=== PATIENT | female | born 1940 | race Caucasian/White ===

== ENCOUNTER → 2017-08-17 14:37 | Outpatient (CLI) | payer MEDICARE, OTHER, SELFPAY ==
[2017-08-17 15:46] LABS: Absolute Lymphocyte Count 2.69 X10^3/ul (0.83-4.51); Absolute Neutrophil Count 7.9 X10^3/uL (2.0-7.7); Basophil# 0.05 X10^3/uL; Basophil% 0.4 % (0-1); Eosinophils% 4.3 % (0-5); Hematocrit 42.1 % (37-47); Hemoglobin 13.4 g/dl (12.0-15.0); Lymphocyte # 2.69 X10^3/ul (4.0); Lymphocyte % 22.9 % (19-41); Mean Corp Hgb Conc 31.8 g/gl (32-36); Mean Corpuscular Hgb 27.6 pg (27.0-32.0); Mean Corpuscular Volume 86.8 fL (81-99); Mean Platelet Vol. 8.9 fl (6.2-12.0); Monocyte# 0.61 X10^3/uL; Monocyte% 5.2 % (0-10); Neutrophil # 7.88 X10^3/uL (2.7-7.7); Neutrophil % 66.9 % (47-70); Platelet Count 445 K/mm3 (150-450); RBC Distribution Width CV 15.1 % (11.6-14.6); RBC Distribution Width SD 47.7 fl (35.1-43.9); Red Blood Count 4.85 M/mm3 (4.2-5.4); White Blood Count 11.8 K/mm3 (4.4-11.0)
[2017-08-17 15:48] LABS: POSITIVE COUNT NO; POSITIVE DIFFERENTIAL NO; POSITIVE MORPHOLOGY NO
[2017-08-17 16:02] LABS: ALB/GLOB Ratio 0.9 RATIO (0.9-2.4); AST(SGOT) 27 U/L (15-37); Alanine Aminotransfer ALT/SGPT 58 U/L (13-56); Albumin, Serum 3.6 g/dL (3.2-5.0); Alkaline Phosphatase 113 U/L (45-117); Anion Gap 6 (5-15); BUN 15 mg/dL (7-18); BUN/Creat Ratio 23.6 RATIO (10-20); Calcium,Total 9.3 mg/dL (8.5-10.1); Chloride 98 mmol/L (98-107); Creatinine, Serum 0.64 mg/dL (0.55-1.02); EST Glomerular Filtration Rate 97 mL/min (>60); Est Glom Filt Rate - Afr Amer 117 mL/min (>60); Globulin 3.9 g/dL (2.2-4.2); Glucose 105 mg/dL (74-106); Potassium 4.1 mmol/L (3.5-5.1); Protein, Total 7.5 g/dL (6.4-8.2); Sodium Level 138 mmol/L (136-145)
== END ==
PROVIDERS: Family Provider Family Medicine; PCP Family Medicine; Visit Provider Internal Medicine Rheumatology
DX: M06.4 Inflammatory polyarthropathy (principal); M15.9 Polyosteoarthritis, unspecified; M17.0 Bilateral primary osteoarthritis of knee; L64.8 Other androgenic alopecia; F41.9 Anxiety disorder, unspecified; F32.89 Other specified depressive episodes
CPT/HCPCS: 36415; 80053; 85025

== ENCOUNTER → 2018-01-03 14:25 | Outpatient (CLI) | payer MEDICARE, OTHER, SELFPAY ==
[2018-01-03 15:41] LABS: Absolute Lymphocyte Count 2.08 X10^3/ul (0.83-4.51); Absolute Neutrophil Count 6.2 X10^3/uL (2.0-7.7); Basophil# 0.05 X10^3/uL; Basophil% 0.5 % (0-1); Eosinophil# 0.49 X10^3/uL; Eosinophils% 5.1 % (0-5); Hematocrit 42.4 % (37-47); Hemoglobin 14.3 g/dl (12.0-15.0); Lymphocyte # 2.08 X10^3/ul (4.0); Lymphocyte % 21.5 % (19-41); Mean Corp Hgb Conc 33.7 g/gl (32-36); Mean Corpuscular Hgb 30.6 pg (27.0-32.0); Mean Corpuscular Volume 90.6 fL (81-99); Mean Platelet Vol. 9.4 fl (6.2-12.0); Monocyte# 0.84 X10^3/uL; Monocyte% 8.7 % (0-10); Neutrophil # 6.18 X10^3/uL (2.7-7.7); Platelet Count 404 K/mm3 (150-450); RBC Distribution Width CV 14.4 % (11.6-14.6); Red Blood Count 4.68 M/mm3 (4.2-5.4); White Blood Count 9.7 K/mm3 (4.4-11.0)
[2018-01-03 15:47] LABS: POSITIVE COUNT NO; POSITIVE DIFFERENTIAL NO; POSITIVE MORPHOLOGY NO
[2018-01-03 15:57] LABS: AST(SGOT) 25 U/L (15-37); Alanine Aminotransfer ALT/SGPT 48 U/L (13-56); Albumin, Serum 3.7 g/dL (3.2-5.0); Alkaline Phosphatase 90 U/L (45-117); Anion Gap 9 (5-15); BUN 11 mg/dL (7-18); Calcium,Total 9.3 mg/dL (8.5-10.1); Chloride 102 mmol/L (98-107); Creatinine, Serum 0.73 mg/dL (0.55-1.02); EST Glomerular Filtration Rate 82 mL/min (>60); Est Glom Filt Rate - Afr Amer 99 mL/min (>60); Globulin 3.7 g/dL (2.2-4.2); Glucose 186 mg/dL (74-106); Protein, Total 7.4 g/dL (6.4-8.2); Sodium Level 139 mmol/L (136-145)
== END ==
PROVIDERS: Family Provider Family Medicine; PCP Family Medicine; Visit Provider Internal Medicine Rheumatology
DX: M06.4 Inflammatory polyarthropathy (principal); Z79.899 Other long term (current) drug therapy; M15.9 Polyosteoarthritis, unspecified; M18.0 Bilateral primary osteoarthritis of first carpometacarpal joints; M17.0 Bilateral primary osteoarthritis of knee; L64.8 Other androgenic alopecia; F41.9 Anxiety disorder, unspecified; F32.89 Other specified depressive episodes
CPT/HCPCS: 36415; 80053; 85025

== ENCOUNTER → 2018-03-24 07:21 | Outpatient (CLI) | payer MEDICARE, OTHER, SELFPAY ==
[2018-03-24 08:08] LABS: Absolute Lymphocyte Count 1.93 X10^3/ul (0.83-4.51); Absolute Neutrophil Count 7.8 X10^3/uL (2.0-7.7); Basophil# 0.05 X10^3/uL; Basophil% 0.5 % (0-1); Eosinophil# 0.51 X10^3/uL; Eosinophils% 4.6 % (0-5); Hematocrit 44.9 % (37-47); Hemoglobin 15.2 g/dl (12.0-15.0); Lymphocyte # 1.93 X10^3/ul (4.0); Lymphocyte % 17.5 % (19-41); Mean Corp Hgb Conc 33.9 g/gl (32-36); Mean Corpuscular Hgb 29.9 pg (27.0-32.0); Mean Corpuscular Volume 88.2 fL (81-99); Mean Platelet Vol. 9.3 fl (6.2-12.0); Monocyte# 0.73 X10^3/uL; Monocyte% 6.6 % (0-10); Neutrophil # 7.79 X10^3/uL (2.7-7.7); Neutrophil % 70.5 % (47-70); Platelet Count 493 K/mm3 (150-450); RBC Distribution Width CV 12.5 % (11.6-14.6); RBC Distribution Width SD 40.3 fl (35.1-43.9); Red Blood Count 5.09 M/mm3 (4.2-5.4)
[2018-03-24 08:10] LABS: POSITIVE COUNT NO; POSITIVE DIFFERENTIAL NO; POSITIVE MORPHOLOGY NO
[2018-03-24 08:34] LABS: ALB/GLOB Ratio 0.9 RATIO (0.9-2.4); AST(SGOT) 24 U/L (15-37); Alanine Aminotransfer ALT/SGPT 47 U/L (13-56); Albumin, Serum 3.6 g/dL (3.2-5.0); Alkaline Phosphatase 114 U/L (45-117); Anion Gap 9 (5-15); BUN 9 mg/dL (7-18); BUN/Creat Ratio 12.9 RATIO (10-20); Calcium,Total 9.4 mg/dL (8.5-10.1); Chloride 102 mmol/L (98-107); EST Glomerular Filtration Rate 87 mL/min (>60); Est Glom Filt Rate - Afr Amer 105 mL/min (>60); Glucose 201 mg/dL (74-106); Potassium 3.7 mmol/L (3.5-5.1); Protein, Total 7.6 g/dL (6.4-8.2); Sodium Level 140 mmol/L (136-145)
== END ==
PROVIDERS: Family Provider Family Medicine; PCP Family Medicine; Referring Provider Internal Medicine Rheumatology; Visit Provider Internal Medicine Rheumatology
DX: M06.4 Inflammatory polyarthropathy (principal); M15.9 Polyosteoarthritis, unspecified; M17.0 Bilateral primary osteoarthritis of knee; L64.8 Other androgenic alopecia; F41.9 Anxiety disorder, unspecified; F32.89 Other specified depressive episodes
CPT/HCPCS: 36415; 80053; 85025

== ENCOUNTER → 2018-03-27 10:27 | Outpatient (CLI) | payer MEDICARE, OTHER, SELFPAY ==
[2018-03-27 12:44] LABS: Thyroid Stim Hormone (TSH) 1.19 uIU/mL (0.358-3.74)
[2018-03-27 14:56] LABS: Vitamin B12 950 pg/mL (211-911); Vitamin D,25 Hydroxy 38.1 ng/mL (29.95-100.01)
== END ==
PROVIDERS: Visit Provider Family Medicine
DX: I10 Essential (primary) hypertension (principal); R53.83 Other fatigue; Z87.898 Personal history of other specified conditions; E53.8 Deficiency of other specified B group vitamins; E55.9 Vitamin D deficiency, unspecified
CPT/HCPCS: 36415; 82306; 82607; 84439; 84443

== ENCOUNTER → 2018-04-20 12:54 | Outpatient (CLI) | payer MEDICARE, OTHER, SELFPAY ==
--- NOTE | 2018-04-20 12:58 | CT_ITS ---
STUDY: CT BRAIN WITHOUT CONTRAST REASON FOR EXAM: Female, 78 years old. Memory loss RADIATION DOSAGE (If Supplied By Facility): CTDIvol = ( 44.99 ) mGy, DLP = ( 745.49 ) mGycm TECHNIQUE: Transaxial CT imaging of the brain was performed without administration of intravenous contrast material. Individualized dose optimization techniques were used for this CT. COMPARISON: None. FINDINGS: Normal soft tissue structures. Normal calvarium. There is mild to moderate cerebral atrophy with widening of the extra-axial spaces and ventricular dilatation. There is mild bilateral periventricular and subcortical white matter hypoattenuation which is symmetric in distribution. Normal basal ganglia and thalami. Normal brainstem. Normal cerebellum. There is no intracranial hemorrhage. There are no findings of an acute ischemic infarction. Normal visualized paranasal sinuses. CT/Brain/Head without Contrast IMPRESSION: 1. No evidence of an acute intracranial abnormality. 2. Mild to moderate bilateral periventricular and subcortical white matter chronic small vessel disease with age appropriate cerebral atrophy. Electronically Signed: Clint Chi MD at 3:51 EST Tel , Service support ,
== END ==
PROVIDERS: Family Provider Family Medicine; PCP Family Medicine; Referring Provider Family Medicine; Visit Provider Family Medicine
DX: F03.90 Unspecified dementia, unspecified severity, without behavioral disturbance, psychotic disturbance, mood disturbance, and anxiety (principal); R26.89 Other abnormalities of gait and mobility
CPT/HCPCS: 70450

== ENCOUNTER → 2018-05-23 15:18 | Outpatient (CLI) | payer MEDICARE, OTHER, SELFPAY ==
[2018-05-23 19:24] LABS: Absolute Lymphocyte Count 2.44 X10^3/ul (0.83-4.51); Absolute Neutrophil Count 7.2 X10^3/uL (2.0-7.7); Basophil# 0.06 X10^3/uL; Basophil% 0.6 % (0-1); Eosinophil# 0.44 X10^3/uL; Eosinophils% 4.1 % (0-5); Hematocrit 45.7 % (37-47); Lymphocyte # 2.44 X10^3/ul (4.0); Lymphocyte % 22.8 % (19-41); Mean Corp Hgb Conc 32.8 g/gl (32-36); Mean Corpuscular Hgb 28.5 pg (27.0-32.0); Mean Corpuscular Volume 86.7 fL (81-99); Mean Platelet Vol. 9.8 fl (6.2-12.0); Monocyte% 5.6 % (0-10); Neutrophil # 7.15 X10^3/uL (2.7-7.7); Neutrophil % 66.8 % (47-70); Platelet Count 428 K/mm3 (150-450); RBC Distribution Width CV 13.1 % (11.6-14.6); RBC Distribution Width SD 41.8 fl (35.1-43.9); Red Blood Count 5.27 M/mm3 (4.2-5.4); White Blood Count 10.7 K/mm3 (4.4-11.0)
[2018-05-23 19:25] LABS: ALB/GLOB Ratio 1.1 RATIO (0.9-2.4); AST(SGOT) 48 U/L (15-37); Alanine Aminotransfer ALT/SGPT 73 U/L (13-56); Alkaline Phosphatase 125 U/L (45-117); Anion Gap 9 (5-15); BUN 11 mg/dL (7-18); BUN/Creat Ratio 15.8 RATIO (10-20); Chloride 101 mmol/L (98-107); EST Glomerular Filtration Rate 87 mL/min (>60); Est Glom Filt Rate - Afr Amer 106 mL/min (>60); Globulin 3.6 g/dL (2.2-4.2); Glucose 244 mg/dL (74-106); Potassium 3.7 mmol/L (3.5-5.1); Protein, Total 7.6 g/dL (6.4-8.2); Sodium Level 138 mmol/L (136-145)
[2018-05-23 19:26] LABS: POSITIVE COUNT NO; POSITIVE DIFFERENTIAL NO; POSITIVE MORPHOLOGY NO
--- OUTSIDE RECORDS SUMMARY | 2018-08-25 04:09 | XMS RPT_ITS ---
:1940 Author Organization OHIP Support Name Relationship Address Phone IVANA MARTÍNEZ Unavailable [address] + [place] [address] BAUERSIL JOYNER, KSENIA Unavailable [address] + [place] [address] R Unavailable Unavailable Unavailable IVANA MARTÍNEZ Unavailable [address] + [place] [address] BAFLETCHER JACOBSONEL, KSENIA Unavailable [address] + [place] [address] R Unavailable Unavailable Unavailable IVANA MARTÍNEZ Unavailable [address] + [place] [address] BAFLETCHER JACOBSONEL, KSENIA Unavailable [address] + [place] [address] R Unavailable Unavailable Unavailable IVANA MARTÍNEZ Unavailable [address] + [place] [address] BAFLETCHER JACOBSONEL, KSENIA Unavailable [address] + [place] [address] R Unavailable Unavailable Unavailable IVANA MARTÍNEZ Unavailable [address] + [place] [address] BAUERSIL JACOBSONEL, KSENIA Unavailable [address] + [place] [address] R Unavailable Unavailable Unavailable IVANA MARTÍNEZ Unavailable [address] + [place] [address] BAFLETCHER JACOBSONEL, KSENIA Unavailable [address] + [place] [address] R Unavailable Unavailable Unavailable IVANA MARTÍNEZ Unavailable [address] + [place] [address] MAURICIO JOYNER KSENIA Unavailable [address] + [place] [address] R Unavailable Unavailable Unavailable XAVIERSCOTTIVANA MUJICA Unavailable [address] + [place] [address] MAURICIO JOYNER KSENIA Unavailable [address] + [place] [address] R Unavailable Unavailable Unavailable IVANA MARTÍNEZ Unavailable [address] + [place] [address] MAURICIO JOYNER KSENIA Unavailable [address] + [place] [address] R Unavailable Unavailable Unavailable XAVIERFLETCHER IVANA Unavailable [address] + [place] [address] MAURICIO JOYNER KSENIA Unavailable [address] + [place] [address] R Unavailable Unavailable Unavailable Care Team Providers Name Role Phone Kelley Miller Attending Unavailable Angela, Kelley Referring Unavailable Edvin Buckley Primary Care Unavailable Edvin Buckley Primary Care Unavailable Simba, Jamie Admitting Unavailable Tomy Yanes Attending Unavailable Angela, Kelley Attending Unavailable Edvin Buckley Primary Care Unavailable Simba, Jamie Admitting Unavailable Jamie Cottrell Attending Unavailable Marcio Edvin Primary Care Unavailable Simba, Jamie Consulting Unavailable Simba, Jamie Admitting Unavailable Tomy Yanes Attending Unavailable Edvin Buckley Primary Care Unavailable Tomy Yanes Consulting Unavailable Marcio Edvin Primary Care Unavailable aSran Forde Attending Unavailable Carlos Alanpalmira, Kelley Attending Unavailable Angela, Kelley Referring Unavailable Edvin Buckley Primary Care Unavailable Angela, Kelley Attending Unavailable Angela, Kelley Referring Unavailable Edvin Buckley Primary Care Unavailable Edvin Buckley Attending Unavailable Edvin Buckley Attending Unavailable Edvin Buckley Referring Unavailable Marcio, Edvin Primary Care Unavailable PROBLEMS PROBLEMS DATE TYPE CONDITION / CODE ATTENDING STATUS SOURCE 05/23/2018 Unknown 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 / Community M06.4(ICD-10) Hospital Repository 03/27/2018 Unknown I10 - Essential Edvin Buckley Active [facility] (primary) Community hypertension / Hospital I10(ICD-10) Repository 03/27/2018 Unknown R53.83 - Other Edvin Buckley Active [facility] fatigue / Community R53.83(ICD-10) Hospital Repository 03/27/2018 Unknown Z87.898 - Personal Edvin Buckley Active [facility] history of other Community specified conditions Hospital / Z87.898(ICD-10) Repository 03/27/2018 Unknown E53.8 - Deficiency of Edvin Buckley Active [facility] other specified B Community group vitamins / Hospital E53.8(ICD-10) Repository 03/27/2018 Unknown E55.9 - Vitamin D Edvin Buckley Active [facility] deficiency, Community unspecified / Hospital E55.9(ICD-10) Repository 03/24/2018 Unknown 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, Community unspecified / Hospital M15.9(ICD-10) Repository 03/24/2018 Unknown M17.0 - Bilateral Vellanki, Kelley Active [facility] primary Community osteoarthritis of Hospital knee / M17.0(ICD-10) Repository 03/24/2018 Unknown 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, 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 / Community L64.8(ICD-10) Hospital Repository 03/24/2018 Unknown F41.9 - Anxiety Vellanpalmira, Kelley Active [facility] disorder, unspecified Community / F41.9(ICD-10) Hospital Repository 01/03/2018 Unknown Z79.899 - Other long Vellanpalmira Kelley Active [facility] term (current) drug Community therapy / Hospital Z79.899(ICD-10) Repository 01/03/2018 Unknown M18.0 - Bilateral Vellanki, Kelley Active [facility] primary [facility] osteoarthritis of Hospital first carpometacarpal Repository joints / M18.0(ICD-10) PROCEDURES PROCEDURES No Procedure Records FoundRESULTS RESULTS 12 LEAD ELECTROCARDIOGRAM Observed: 06/20/2018 Status: F Source: [facility] 5:18 PM [facility] REPOSITORY [facility] Cardiovascular Services [address] [place] [address] 12 Lead EKG 06/19/18 1552 MR#: [id number] Acct: [id number] Name: LILLY WALKER Rep #: [id number] : 1940 78 From: Rosendo Cleary MD Attending Dr: Status: DEP ER Ordering Dr: Saran Forde DO Date: 06/19/18 Location: ED Sex: F C Admitted: Test Reason : OVERDOSE Blood Pressure : / mmHG Vent. Rate : 075 BPM Atrial Rate : 075 BPM P-R Int : 202 ms QRS Dur : 092 ms QT Int : 476 ms P-R-T Axes : 058 004 082 degrees QTc Int : 531 ms Normal sinus rhythm Nonspecific ST and T wave abnormality Prolonged QT Abnormal ECG Confirmed by ROSENDO CLEARY MD ([id number]), visual effects editor NEGRA DE LA O ([id number]) on 06/20/2018 5:17:30 PM Referred By: ES Confirmed By:ROSENDO CLEARY MD 06/20/18 1717 Date Rosendo Cleary MD CC: Saran Forde DO; Edvin Buckley MD Signed EMERGENCY DEPARTMENT Observed: 06/19/2018 Status: F Source: [place] SUMMARY 6:30 PM [facility] [place] [facility] Medical Records Department [address] [place] [address] Emergency Department Summary 06/19/18 1535 MR#: [id number] Acct: [id number] Name: LILLY WALKER Rep #: [id number] : 1940 78 From: Saran Forde DO PCP: Edvin Buckley MD Status: REG ER - ER Visit Summary Date of Service: 06/19/18 Chief Complaint: Accidental overdose History of Present Illness: The patient is a 78 F who presents after taking 3 extra doses of atenolol 50 mg, duloxetine 30 mg, duloxetine 60 mg, 4 extra doses of Relafen 750 mg and 4 extra doses of vitamin B12. Patient took these approximately 45 minutes prior to arrival. Currently, the patient denies any symptoms. Family states the patient became confused and accidentally took extra doses of her medications. Physical Examination: Vital signs are stable. Patient is afebrile. Patient is in no acute distress. Oral mucosa is pink and moist. Neck is supple. Trachea is midline. There is no JVD noted. Heart was regular rate and rhythm. Lungs are clear and equal bilaterally. Abdomen is soft. Bowel sounds are normal. There is no tenderness. Cranial nerves II through XII are intact. There are no focal motor or sensory deficits noted. The remaining physical exam is within normal limits. Test Results: EKG showed normal sinus rhythm with a rate of 75. There are no acute ST or T wave changes. This was unchanged compared to previous EKG dated 11/10/2011. CBC and conference of metabolic profile were obtained. Glucose was slightly elevated at 390. The remaining labs were within normal limits. Emergency Department Course and Treatment: Case was discussed with poison control. They recommended administering charcoal if the patient was able to swallow without difficulty. Patient was able to swallow one sip of the activated charcoal but began to cough and gag. Charcoal was canceled. Patient was observed in the emergency department on a gambling monitor. Patient's blood pressure remained normal. Patient's heart rate remained normal. Case was discussed with the hospitalist. He does not feel the patient needs to be admitted for observation. Case was discussed with the family. They will stay with the patient tonight and monitor the patient. They were instructed to return if worse in any way. Patient and family understood and were agreeable with the plan. All questions were answered. Disposition: Discharge home Impression: Accidental overdose This note was generated with [employer] dictation software. It may contain incorrect words, spelling, and punctuation that were not noted in review of the chart prior to signing ED Disposition - Plan for ED Patient: Disposition: Home or Assisted Living Chief Complaint: Overdose Diagnosis: Accidental drug overdose Instructions: ED Overdose Accidental Referrals: Edvin Buckley MD [Primary Care Provider] - What to do if you have Problems For any increased pain, shortness of breath, bleeding, nausea or vomiting, chest pain, or any unexpected problems, contact your Primary Care Provider. Call [facility] ([phone]) or report to the closest Emergency Room. Call 911 if necessary. 06/19/18 9790 <Electronically signed by Saran Forde DO> Date Saran Forde DO Cosigner Signature (If Indicated): Date CC: Edvin Buckley MD BEDSIDE GLUCOSE Collected: 06/19/2018 Status: F Source: [place] 4:19 PM [facility] [place] TYPE CODE TESTS RESULT OUT OF REFERENCE UNITS RANGE LAB L501.080 70-110 mg/dL High BEDSIDE GLU 351 Result Comment: MANAGEMENT OF PATIENT CARE PER NURSING PROTOCOL Performed By: #### L501.080 #### [facility] Point of Care Guicho Sanz [place], [place] [id number] COMPREHENSIVE METABOLIC Collected: 06/19/2018 Status: F [facility] [place] [facility] TYPE CODE TESTS RESULT OUT OF RANGE REFERENCE UNITS LAB L501.0100 74-106 mg/dL High GLU 390 Result Comment: Glucose result greater than or equal to 200 mg/dL suggests DIABETES MELLITUS per A.D.A. criteria. Please note revised GLUCOSE reference range effective 2017. LAB L501.1000 7-18 mg/dL High BUN 19 LAB L501.1100 0.55-1.02 mg/dL Normal CREAT,SERUM 0.95 Result Comment: The validity of the calculated GFR AND GFRAA in patients over 70 years has not been determined. Clinical correlation is essential. LAB L501.1110 >60 mL/min Normal EST GFR 61 Result Comment: Non- GFR Calc LAB L501.1115 >60 mL/min Normal EST GFR - AA 73 Result Comment: GFR Calc LAB L501.1255 ml/min Normal Estimated CRCL 45.33 LAB L501.1300 10-20 RATIO Normal BUN/CRE 20.0 LAB L501.1500 6.4-8. g/dL Normal 2 T PROT 6.8 LAB L501.1800 3.2-5. g/dL Normal 0 ALB 3.4 LAB L501.1950 2.2-4. g/dL Normal 2 GLOB 3.4 LAB L501.2000 0.9-2. RATIO Normal 4 A/G 1.0 LAB L501.2200 8.5-10 mg/dL Normal .1 CA 9.3 LAB L501.4100 15-37 U/L Normal AST 21 LAB L501.4305 45-117 U/L Normal ALK P 105 LAB L501.4405 13-56 U/L Normal ALT 44 LAB L501.4600 0.20-1 mg/dL Normal .00 T BILI 0.40 LAB L501.5300 136-14 mmol/L Normal 5 NA 139 LAB L501.5600 3.5-5. mmol/L Normal 1 K 4.2 LAB L501.5900 98-107 mmol/L Normal CL 101 LAB L501.6100 21.0-3 mmol/L Normal 2.0 CO2 26.0 LAB L501.6200 5-15 Normal GAP 12 Performed By: #### L500.4050 #### [facility] [address] [place], [address] CBC W/DIFF, AUTOMATED Collected: 06/19/2018 Status: F Source: [place] 3:45 PM [facility] [place] TYPE CODE TESTS RESULT OUT OF RANGE REFERENCE UNITS LAB L100.1000 4.4-11.0 K/mm3 Normal WBC 9.2 LAB L100.1200 4.2-5.4 M/mm3 Normal RBC 4.77 LAB L100.1300 12.0-15.0 g/dl Normal HGB 13.5 LAB L100.1400 37-47 % Normal HCT 41.8 LAB L100.1500 81-99 fL Normal MCV 87.6 LAB L100.1600 27.0-32.0 pg Normal MCH 28.3 LAB L100.1700 32-36 g/gl Normal MCHC 32.3 LAB L100.1810 11.6-14.6 % Normal RDW CV 13.7 LAB L100.1820 35.1-43.9 fl Normal RDW SD 43.9 LAB L100.1900 150-450 K/mm3 Normal PLT 372 LAB L100.2000 6.2-12.0 fl Normal MPV 9.9 LAB L100.2100 47-70 % High NEUT% 71.6 LAB L100.2200 19-41 % Low LY% 15.0 LAB L100.2300 0-10 % Normal MONO% 5.7 LAB L100.2400 0-5 % High EO% 6.8 LAB L100.2500 0-1 % Normal BASO% 0.7 LAB L100.2550 0.0-0.9 % Normal IM GRAN % 0.200 Result Comment: IG% - Immature Granulocytes (promyelocytes, myelocytes and metamyelocytes) > 1% indicates that a LEFT SHIFT is Present. LAB L100.2620 2.0-7.7 X10 3/uL Normal Absolute Neut 6.6 LAB L100.2720 0.83-4.51 X10 3/ul Normal Absolute Lymph 1.37 Performed By: #### L100.0100 #### [facility] [address] [place], [address] BEDSIDE GLUCOSE Collected: 05/29/2018 Status: F Source: [place] 11:22 AM [facility] [place] TYPE CODE TESTS RESULT OUT OF REFERENCE UNITS RANGE LAB L501.080 70-110 mg/dL High BEDSIDE GLU 446 Result Comment: MANAGEMENT OF PATIENT CARE PER NURSING PROTOCOL Performed By: #### L501.080 #### [facility] Point of Care [address] [place] [address] DISCHARGE INSTRUCTION Observed: 05/29/2018 Status: F Source: [place] 9:53 AM [facility] Medical Records Department [address] [place] [address] Instructions for Home/Discharge Instructions 05/29/18926 MR#: [id number] Acct: [id number] Name: LILLY WALKER Rep #: [id number] : 1940 78 From: Tomy Yanes MD PCP: Edvin Buckley MD Status: ADM ABELARDO ADDENDUM by Tomy Yanes MD on 05/29/18 at 0953 Lisinopril 5 mg Daily PO given as well 05/29/18 0953 Date Tomy Yanes MD cc: Edvin Buckley MD * Signed - Discharge Diagnoses Current Active Problems: Current Active and Chronic Problems Rheumatoid arthritis (Chronic) Diabetes mellitus type 2 in nonobese (Chronic) Depression (Acute) Cellulitis of both forearms (Acute) You will use the following diet at home:: Calorie/Carbohydrate Controlled (specify 1200, 1400, etc) Your food should be the consistency of: Regular Your liquids should be the consistency of: Regular/Thin Discharge Activity: Return to Normal Activity Call your doctor if you observe: Fever of 101 or Higher, Coldness, Increased Pain, Inability to urinate, Shortness of breath, Dizziness, Fainting spells Additional Instructions: Continue the Insulin at night until the 10 day steroid course is finished Allergies/Adverse Reactions: Allergies codeine Allergy (Verified 05/28/18 13:28) Vomiting Medications to take at Discharge Atenolol [Tenormin (beta miki)] 1 tab PO DAILY PRN PRN 05/28/18 Cyanocobalamin (Vitamin B-12) [B-12] 1,000 mcg PO DAILY 05/28/18 Duloxetine HCl 90 mg PO DAILY 05/28/18 Nabumetone 1 tab PO DAILY 05/28/18 Insulin Glargine [Lantus SoloStar Pen] 15 units SC QHS #1 pen 05/29/18 predniSONE tablet 10 mg PO DAILY #0 05/29/18 predniSONE tablet 40 mg PO DAILY@0800 #20 tablet 05/29/18 The following prescriptions were given: Insulin Glargine [Lantus SoloStar Pen] 15 units SC QHS #1 pen predniSONE tablet 40 mg PO DAILY@0800 #20 tablet Primary Care Physician: Edvin Buckley MD [Primary Care Provider] - Please follow up with your Primary Care Physician in: 3-5 days Test Results: Test results from this visit will be discussed in further detail at your follow-up appointment, if applicable. 05/29/18 0929 <Electronically signed by Tomy Yanes MD> Date Tomy Yanes MD CC: Edvin Buckley MD Signed DISCHARGE SUMMARY Observed: 05/29/2018 Status: F Source: [place] 9:52 AM [facility] Medical Records Department [address] [place] [address] Discharge Summary 05/29/18 0929 MR#: [id number] Acct: [id number] Name: LILLY WALKER Rep #: [id number] : 1940 78 From: Tomy Yanes MD PCP: Edvin Buckley MD Status: ADM ABELARDO Y Location: [place] [address] Discharge Date and Diagnosis - Problem List Patient Problems: Active and Suspected Problems Depression (Acute) Cellulitis of both forearms (Acute) Date of Admission: 05/28/18 Date of Discharge: 05/29/18 - Primary Discharge Diagnosis Active and Suspected Problems Depression (Acute) Cellulitis of both forearms (Acute) - Secondary Discharge Diagnosis Chronic Problems Rheumatoid arthritis (Chronic) Diabetes mellitus type 2 in nonobese (Chronic) Hyperlipidemia (Chronic) Benign essential hypertension (Chronic) Hospital Course and Treatment Imaging Results: B/l Hand and Forearm Xray: Negative for fracture but subcutaneous swelling evident Consults: None Operations: None Procedures: None Summary of Care Provided: Per HPI: The patient is a 78 year old F with history of dementia, depression and rheumatoid arthritis, recently saw railroad operator, Dr. Ospina posterior was referred to ER from urgent care for rash in both forearms and hands. Patient has history of depression but she denies suicidal ideation, attempt recently although she had suicidal attempt long time ago but she does not remember. She has a redness, itching on the left forearm greater than right forearm and hand that is started today after she woke up. She denies fever or chills. She denies any known contact of allergic irritants like lotion, bushes or shrubs or chemicals or to continues on medication. She saw her curer foam rubber on 05/23 and was given prescription for folic acid and methotrexate but methotrexate was canceled as per the daughter. Vital Signs - 24 hr General: Alert, Oriented x3, Cooperative, No apparent distress HEENT: Atraumatic, EOMI, Normocephalic Oral: Moist Mucosa Neck: Supple, No JVD Lungs: Clear to auscultation, Normal air movement, No rhonchi, No wheeze, No rales Cardiovascular: Regular rate, Regular Rhythm, Normal S1, Normal S2, No murmurs Abdomen: Soft, Non Tender, Non-Distended, No Hepato-splenomegaly Extremities: No edema, Capillary Refill Less than 3 Seconds Skin: Redness is much improved and there are areas of skin excoriations from scratching. There are red patches in her scalp as well Musculoskeletal: No Tenderness to Palpation of Joints or Extremities, b/l hand joint destruction Neurological: Motor Exam 5/5 strength throughout, Sensory exam intact to light touch and pain Psych/Mental Status: Normal Affect, Appropriate, No SI/HI Hospital Course: 1. Dermatitis/Rheumatoid Arthritis/DM2 - She presented with a 1 day h/o skin redness, swelling and itching. Today per the patient and the daughter, the redness has almost completely resolved, as has the swelling. She had only received 1 dose of vancomycin, and zosyn. Her leukocytosis was elevated because she had been taking her prednisone prior to admission. She remains afebrile and the remaining areas of erythema are patchy and appear to be a dermatitis rather than an infection. The rapidity of the resolution seems to be more likely an allergic dermatitis rather than an infection, her ESR was normal on admission but her CRP was elevated to 46. She would like to go home and her daughter agrees with taking her mom home. I explained the risks of going home vs staying and they would still like to go home. Of note, the daughter states that her mom is a diabetic controlled by diet, however, her A1c is 10. During her stay, her BG was elevated to >400 secondary to the steroids. Since she will be discharged on steroids, she will also be discharged on Lantus 15 U qHS during her steroid course only. She is to f/u with her PCP in 3-5 days and will likely need to be started on metformin and a long acting insulin. 2. Dementia/Depression - There is a mental health consult secondary to a h/o remote suicidal attempt, and there is documented SI on admission though the patient denies this to the admitting Hospitalist and myself. She is on cymbalta which will also be continued. 3. HTN - On admission her SBP was elevated to >180, She has since returned to the 160's. I am unsure of her baseline, but she would benefit from an HEMALATHA- I. Will DC on lisinopril 5 mg daily. 4. Her other diagnoses were evaluated and her home medications were continued where appropriate Patient Problems: Active and Suspected Problems Depression (Acute) Cellulitis of both forearms (Acute) - Physical Exam Vital Signs Temp Pulse Resp BP Pulse Ox 97.7 F L 73 16 169/87 H 97 05/29/18 02:23 05/29/18 02:23 05/29/18 02:23 05/29/18 02:23 05/29/18 02:23 Oxygen Delivery Method Room Air Weight: 175 lb 0.752 oz Body Mass Index (BMI) 29.1 Intake and Output for Last 24 Hours Intake Total 120 / 120 Output Total 300 / 300 Balance -180 / -180 Laboratory Tests Past 24 Hrs WBC 18.7 H RBC 5.26 Hgb 15.3 H Hct 44.8 MCV 85.2 MCH 29.1 MCHC 34.2 RDW 13.2 WBC 15.8 H RBC 4.52 Hgb 13.0 Hct 39.1 MCV 86.5 MCH 28.8 MCHC 33.2 RDW 13.2 RDW Differential 40.5 WBC RBC Hgb Hct MCV MCH MCHC RDW RDW Differential Plt Count POC Glucose POC Glucose 186 H 321 H 411 H Discharge Activity: Return to Normal Activity Call your doctor if you observe: Fever of 101 or Higher, Coldness, Increased Pain, Inability to urinate, Shortness of breath, Dizziness, Fainting spells Home Medications: Medications to take at Discharge Atenolol [Tenormin (beta miki)] 1 tab PO DAILY PRN PRN 05/28/18 Cyanocobalamin (Vitamin B-12) [B-12] 1,000 mcg PO DAILY 05/28/18 Duloxetine HCl 90 mg PO DAILY 05/28/18 Nabumetone 1 tab PO DAILY 05/28/18 Insulin Glargine [Lantus SoloStar Pen] 15 units SC QHS #1 pen 05/29/18 Lisinopril 5 mg PO DAILY #30 tablet 05/29/18 predniSONE tablet 10 mg PO DAILY #0 05/29/18 predniSONE tablet 40 mg PO DAILY@0800 #20 tablet 05/29/18 Following Prescrptions Were Given to Patient: Insulin Glargine [Lantus SoloStar Pen] 15 units SC QHS #1 pen predniSONE tablet 40 mg PO DAILY@0800 #20 tablet Primary Care Physician: Edvin Buckley MD [Primary Care Provider] - Please follow up with your Primary Care Physician in: 3-5 days Disposition: Home Minutes spent on discharge:: 35 Patient Condition:: Good Medical Necessity - Tobacco Use Smoking Status: Never smoker Meaningful Use Info Meaningful Use Diagnoses (Choose all that apply): None applicable Code Visit Inpatient DEDRICK: [id number] Disch Hosp 05/29/18 0952 <Electronically signed by Tomy Yanes MD> Date Tomy Yanes MD Cosigner Signature (if applicable): Date CC: Tomy Yanes MD; Edvin Buckley MD Signed BEDSIDE GLUCOSE Collected: 05/29/2018 Status: F Source: [place] 6:44 AM [facility] [place] TYPE CODE TESTS RESULT OUT OF REFERENCE UNITS RANGE LAB L501.080 70-110 mg/dL High BEDSIDE GLU 186 Result Comment: MANAGEMENT OF PATIENT CARE PER NURSING PROTOCOL Performed By: #### L501.080 #### [facility] [place], [place] [address] CBC W/DIFF, AUTOMATED Collected: 05/29/2018 Status: F Source: [place] 5:50 AM [facility] [place] [facility] TYPE CODE TESTS RESULT OUT OF RANGE REFERENCE UNITS LAB L100.1000 4.4-11.0 K/mm3 High WBC 15.8 LAB L100.1200 4.2-5.4 M/mm3 Normal RBC 4.52 LAB L100.1300 12.0-15.0 g/dl Normal HGB 13.0 LAB L100.1400 37-47 % Normal HCT 39.1 LAB L100.1500 81-99 fL Normal MCV 86.5 LAB L100.1600 27.0-32.0 pg Normal MCH 28.8 LAB L100.1700 32-36 g/gl Normal MCHC 33.2 LAB L100.1810 11.6-14.6 % Normal RDW CV 13.2 LAB L100.1820 35.1-43.9 fl Normal RDW SD 40.5 LAB L100.1900 150-450 K/mm3 Normal PLT 344 LAB L100.2000 6.2-12.0 fl Normal MPV 9.9 LAB L100.2100 47-70 % High NEUT% 83.2 LAB L100.2200 19-41 % Low LY% 10.4 LAB L100.2300 0-10 % Normal MONO% 5.9 LAB L100.2400 0-5 % Normal EO% 0.1 LAB L100.2500 0-1 % Normal BASO% 0.1 LAB L100.2550 0.0-0.9 % Normal IM GRAN % 0.300 Result Comment: IG% - Immature Granulocytes (promyelocytes, myelocytes and metamyelocytes) > 1% indicates that a LEFT SHIFT is Present. LAB L100.2620 2.0-7.7 X10 3/uL High Absolute Neut 13.1 LAB L100.2720 0.83-4.51 X10 3/ul Normal Absolute Lymph 1.64 Performed By: #### L100.0100 #### [facility] [address] [place], [address] BASIC METABOLIC Collected: 05/29/2018 Status: F Source: [place] PROFILE ([facility]) 5:50 AM [facility] [place] [facility] TYPE CODE TESTS RESULT OUT OF RANGE REFERENCE UNITS LAB L501.0100 74-106 mg/dL High GLU 214 Result Comment: Glucose result greater than or equal to 200 mg/dL suggests DIABETES MELLITUS per A.D.A. criteria. Please note revised GLUCOSE reference range effective 2017. LAB L501.1000 7-18 mg/dL High BUN 19 LAB L501.1100 0.55-1.02 mg/dL Normal CREAT,SERUM 0.55 Result Comment: The validity of the calculated GFR AND GFRAA in patients over 70 years has not been determined. Clinical correlation is essential. LAB L501.1110 >60 mL/min Normal EST GFR 115 Result Comment: Non- GFR Calc LAB L501.1115 >60 mL/min Normal EST GFR - AA 139 Result Comment: GFR Calc LAB L501.1255 ml/min Normal Estimated CRCL 41.33 LAB L501.1300 10-20 RATIO High BUN/CRE 34.7 LAB L501.2200 8.5-10 mg/dL Normal .1 CA 8.8 LAB L501.5300 136-14 mmol/L Normal 5 NA 141 LAB L501.5600 3.5-5. mmol/L Normal 1 K 3.5 LAB L501.5900 98-107 mmol/L Normal CL 105 LAB L501.6100 21.0-3 mmol/L Normal 2.0 CO2 27.0 LAB L501.6200 5-15 Normal GAP 9 Performed By: #### L500.2500 #### [facility] [address] [facility] [address] HEMOGLOBIN A1C Collected: 05/29/2018 Status: F Source: [place] 5:50 AM [facility] [place] TYPE CODE TESTS RESULT OUT OF RANGE REFERENCE UNITS LAB L501.9985 4.2-6.3 % High HGB A1C 10.0 Performed By: #### L501.9985 #### [facility] [address] [place], [address] BEDSIDE GLUCOSE Collected: 05/28/2018 Status: F Source: [place] 9:57 PM [facility] [place] TYPE CODE TESTS RESULT OUT OF REFERENCE UNITS RANGE LAB L501.080 70-110 mg/dL High BEDSIDE GLU 321 Result Comment: MANAGEMENT OF PATIENT CARE PER NURSING PROTOCOL Performed By: #### L501.080 #### [facility] Point of Care [address] [place] [address] URINALYSIS, COMPLETE Collected: 05/28/2018 Status: F Source: [place] 5:50 PM [facility] [place] Order Comment: How was Urine Obtained? JOB ESTIMATOR TO SPECIFY TYPE CODE TESTS RESULT OUT OF RANGE REFERENCE UNITS LAB L400.3000 Yellow COLOR Normal Yellow LAB L400.3050 Clear Normal CLARITY Clear LAB L400.3200 Normal mg/dl High GLUCOSE, UR 1000 LAB L400.3300 Negative mg/dL Normal BILIRUBIN URINE Negative LAB L400.3400 Negative mg/dl Normal KETONE UR Negative LAB L400.3465 1.002-1.030 Normal SP.GR. DIPSTX 1.010 LAB L400.3550 5.0 - 8.0 pH UR Normal 5.0 LAB L400.3600 Negative mg/dl PROT Normal DIPSTX Negative LAB L400.3700 Normal mg/dl Normal UROBILI Normal LAB L400.3750 Negative Normal NITRITE UR Negative LAB L400.3780 Negative /ul High 25 OCCULT BLOOD-UR LAB L400.3800 Negative /ul LEUK Normal ESTERASE Negative LAB L400.4050 0-5 /hpf WBC 0 Normal SEEN LAB L400.4100 0-5 /hpf 0 Normal RBC-UA SEEN LAB L400.4150 5-10 /hpf SQUAM Normal EPI 0-5 SEEN LAB L400.4300 None Seen /hpf 1+ Normal BACTERIA LAB L400.4350 <or=2+ /hpf 0 Normal MUCUS, URINE SEEN Performed By: #### L400.0001 #### [facility] [address] [place], [address] BEDSIDE GLUCOSE Collected: 05/28/2018 Status: F Source: [place] 5:22 PM [facility] [place] TYPE CODE TESTS RESULT OUT OF REFERENCE UNITS RANGE LAB L501.080 70-110 mg/dL High BEDSIDE GLU 411 Result Comment: MANAGEMENT OF PATIENT CARE PER NURSING PROTOCOL Performed By: #### L501.080 #### [facility] Point of Care [address] [place] [address] HISTORY AND PHYSICAL Observed: 05/28/2018 Status: F Source: [place] EXAM 4:19 PM [facility] [place] [facility] [facility] Medical Records Department [address] [place] [address] History and Physical 05/28/18 1536 MR#: [id number] Acct: [id number] Name: LILLY WALKER Rep #: [id number] : 1940 78 From: Jamie Cottrell MD PCP: Edvin Buckley MD Status: ADM IN Y Location: MS3 [id number] Problem List (1) Rheumatoid arthritis Status: Chronic (2) Diabetes mellitus type 2 in nonobese Status: Chronic (3) Depression Status: Acute (4) Cellulitis of both forearms Status: Acute (5) Benign essential hypertension Status: Chronic (6) Hyperlipidemia Status: Chronic History of Present Illness Date of Admission: 05/28/18 Chief Complaint: Rash to both hands and forearm for 3 days The patient is a 78 year old F with history of dementia, depression and rheumatoid arthritis, recently saw railroad operator, Dr. Ospina posterior was referred to ER from urgent care for rash in both forearms and hands. Patient has history of depression but she denies suicidal ideation, attempt recently although she had suicidal attempt long time ago but she does not remember. She has a redness, itching on the left forearm greater than right forearm and hand that is started today after she woke up. She denies fever or chills. She denies any known contact of allergic irritants like lotion, bushes or shrubs or chemicals or to continues on medication. She saw her curer foam rubber on 05/23 and was given prescription for folic acid and methotrexate but methotrexate was canceled as per the daughter. [] Past Medical History Past Medical History (Chronic Problems): Chronic Problems Rheumatoid arthritis (Chronic) Diabetes mellitus type 2 in nonobese (Chronic) Hyperlipidemia (Chronic) Benign essential hypertension (Chronic) Allergies codeine Allergy (Verified 05/28/18 13:28) Vomiting Home Medications: Ambulatory Orders Medication Instructions Recorded Atenolol [Tenormin (beta miki)] 1 tab PO DAILY 05/28/18 Duloxetine HCl 90 mg PO DAILY 05/28/18 Nabumetone 1 tab PO DAILY 05/28/18 Surgical History: cholecystectomy, total knee arthroplasty Smoking Status: Never smoker - *Family History Paternal History Items: No pertinent history Review of Systems Constitutional: Denies: Chills, Fever, Weight Change HEENT: Denies: Head Aches, Sinus Congestion, Sinus Drainage Cardiovascular: Denies: Chest Pain, Palpitations Respiratory: Denies: Cough, Shortness of breath at rest, Sputum production Gastrointestinal: Denies: Abdominal Pain, Nausea, Vomiting Genitourinary: Denies: Dysuria Musculoskeletal: Reports: Hand Pain, Joint Pain - Rheumatoid arthritis. Denies: Joint Tenderness Skin: Reports: Rash - Maculopapular rash in both hand and hand Reddish dots like petechia and ecchymosis and pulmonary aspect of hand. Telltale sign of itching.. Denies: Wounds Neurological: Denies: Numbness, Tingling, Focal weakness Psychiatric: Reports: Anxiety, Depression. Denies: Homicidal Ideations, Suicidal Ideations Hematologic/ Lymphatic: Denies: Easy Bruising, Easy Bleeding VTE Information - Inpt Only VTE Present on Admission: No VTE Mechan Device Prophylaxis: None VTE Pharm Prophylaxis ordered?: Yes Patient Problems: Active and Suspected Problems Depression (Acute) Cellulitis of both forearms (Acute) - Physical Exam General: Alert, Oriented x3, Cooperative HEENT: Atraumatic, PERRLA, EOMI, Normocephalic Oral: No Gingival or Mucosal Lesions/ Ulcerations, - - No oropharyngeal mucosal redness or ulcer Neck: Supple, No JVD, Negative Carotid Bruits Lungs: Clear to auscultation, Normal air movement, No rhonchi, No wheeze Cardiovascular: Regular rate, Regular Rhythm, Normal S1, Normal S2, No murmurs Abdomen: Bowel Sounds Present, Soft, Non Tender, Non-Distended Extremities: No edema, Capillary Refill Less than 3 Seconds Skin: Rash Present - Maculopapular rash in both hand and hand Reddish dots like petechia and ecchymosis and pulmonary aspect of hand. Telltale sign of itching. Musculoskeletal: No Tenderness to Palpation of Joints or Extremities, Arthritic Changes - Chronic deformity of hand at the MCP and PIP joints of rheumatoid arthritis, Muscle Wasting - Hand muscle wasting Neurological: Cranial nerves II-XII grossly intact, Deep Tendon Reflexes 2+/4 and Symmetrical, Neuro grossly intact Psych/Mental Status: Normal Affect, Appropriate Vital Signs Temp Pulse Resp BP Pulse Ox 98.1 F 92 16 186/87 H 95 05/28/18 13:29 05/28/18 13:29 05/28/18 13:29 05/28/18 13:29 05/28/18 13:29 Oxygen Delivery Method Room Air Weight: 170 lb Body Mass Index (BMI) 28.3 Laboratory Tests Past 24 Hrs WBC 18.7 H RBC 5.26 Hgb 15.3 H Hct 44.8 MCV 85.2 MCH 29.1 MCHC 34.2 RDW 13.2 RDW Differential 40.9 Plt Count 373 Assessment/Plan All Active Problems Depression (Acute) Cellulitis of both forearms (Acute) The patient is a 78 year old F with history of dementia, depression and rheumatoid arthritis, recently saw railroad operator, Dr. Ospina posterior was referred to ER from urgent care for rash in both forearms and hands. Patient has history of depression but she denies suicidal ideation, attempt recently although she had suicidal attempt long time ago but she does not remember. She has a redness, itching on the left forearm greater than right forearm and hand that is started today after she woke up. She denies fever or chills. She denies any known contact of allergic irritants like lotion, bushes or shrubs or chemicals or to continues on medication. She saw her curer foam rubber on 05/23 and was given prescription for folic acid and methotrexate but methotrexate was canceled as per the daughter. Patient denies any previous history of allergic reaction. In ED, no fever was noticed. Blood pressure 186/87. Basic labs in ED shows leukocytosis left shift. CRP 46.2. 1. Bilateral forearm/hand cellulitis with leukocytosis or possibility of allergic reaction, precipitant unclear: Patient is being admitted on regular MedSurg floor. All the platelet count is normal there is possibility of possible qualitative defect of platelet but she denies any previous history of easy bruisability or bleeding. Started on IV cefazolin. MRSA nasal screen. LFT ordered. There is no open ulcer. Flu test ordered. Monitor CBC. X-rays of both forearm and hand does not show acute osseous abnormality. 2. Diabetes mellitus type 2 with hyperglycemia: Since patient is noncompliant. Accu-Chek before meals and at bedtime and cover with NovoLog sliding scale. 3. Hypertension: Blood pressures I: Started on lisinopril 10 mg daily. Continue atenolol. 4. Anxiety and depression: As mentioned above patient denies suicidal ideations or recent suicidal attempt. shipping/receiving manager consult for mental health professional evaluation. 5. Rheumatoid arthritis with deformity of both hands at the MCP and PIP joints. Continue folic acid. Reason for consultation of methotrexate prescription is not clear. Follow-up railroad operator as an outpatient. 6. DVT prophylaxis: On Lovenox 40 minutes subcu daily. Discontinue if platelet count drops less than 70,000 or hemoglobin less than 8 g%. This note was generated with [employer] dictation software. Every effort was made to ensure accuracy, however computerized tablet repair mistakes may persist. Laboratory Results 05/28/18 14:05: WBC 18.7 H, RBC 5.26, Hgb 15.3 H, Hct 44.8, MCV 85.2, MCH 29.1, MCHC 34.2, RDW 13.2, RDW Differential 40.9, Plt Count 373, MPV 9.6, Immature Gran % (Auto) 0.200, Neut % (Auto) 95.0 H, Lymph % (Auto) 4.1 L, Coosa % (Auto) 0.5, Eos % (Auto) 0.1, Baso % (Auto) 0.1, Absolute Neuts (auto) 17.8 H, Absolute Lymphs (auto) 0.76 L, Total Counted Not Reportable, ESR 17 05/28/18 14:05: Sodium 136, Potassium 4.5, Chloride 100, Carbon Dioxide 26.0, Anion Gap 10, BUN 20 H, Creatinine 0.86, Estim Creat Clear Calc 50.08, Est GFR (MDRD) Af Amer 82, Est GFR (MDRD) Non-Af 68, BUN/Creatinine Ratio 23.1 H, Glucose 396 H, Calcium 9.3, C-React Prot Ext Range 46.20 H Code Visit OBSV E AND M: [id number] Initial observation care L3 05/28/18 1619 <Electronically signed by Jamie Cottrell MD> Date Jamie Cottrell MD Cosigner Signature: Date (if applicable) CC: Jamie Cottrell MD; Edvin Buckley MD Signed EMERGENCY DEPARTMENT Observed: 05/28/2018 Status: F Source: [place] SUMMARY 4:05 PM [facility] [place] [facility] Medical Records Department [address] [place] [address] Emergency Department Summary 05/28/18 1347 MR#: [id number] Acct: [id number] Name: LILLY WALKER Rep #: [id number] : 1940 78 From: Carlos Manzanares MD PCP: Edvin Buckley MD Status: ADM IN - ER Visit Summary Date of Service: 05/28/18 Chief Complaint: [] Rash to both arms for days noncompliant with medications, depression intermittent thoughts of suicide History of Present Illness: The patient is a 78 F [] lives alone at home, she was brought in by her daughter who lives in [place] was visiting for the holidays the daughter reports the patient has had a rash to the left greater than right arm for days it is quite itchy and pruritic etiology of the rash is unclear there is been no exposures no medications nose insect bites etc. the patient has not been taking any of her medications including medications for her arthritis and her depression the daughter reports the mother is more depressed than her baseline and is not sure if that is because she been out of her medications or her condition has deteriorated in addition the patient intermittently talks the daughter about suicide but the patient currently denies being suicidal, daughter is here until the Tuesday after [place] basically indicates the mother has been doing at baseline at home Diabetes hypertension depression rheumatoid arthritis bilateral knee replacement Physical Examination: [] 186/87, afebrile General, no distress resting comfortably HEENT is generally unremarkable The neck is supple no adenopathy Cardiovascular, regular rate and rhythm Lungs, clear bilateral Abdomen, soft nontender Extremities, there are scattered abrasions and dennis very superficial to the left forearm with indurated skin up to the mid proximal forearm, there is a circular type.over the palm of the left hand hand function is intact some joint deformity no signs of joint infection no wrist infection full range of motion the elbow is not involved, the right upper extremity very similar findings except the redness extends to the mid forearm, there is no petechia purpura skin breakdown no fluctuance no crepitance Neurologic, awake alert answering questions appropriately moving all 4 extremities, she is awake alert slow to respond answering questions appropriately again admits that she has had thoughts of suicide but has no active plan Test Results: [] Daughter reports the patient is far she can tell has been doing her baseline at home we will obtain screening labs the etiology of the pruritic rash is unclear but certainly present allergic reaction possible secondary infection is no history of MRSA infection, and as far as the daughter knows all of her other health conditions including her diabetes have been stable Emergency Department Course and Treatment: [] His white count is 19,000 the chemistry panels generally unremarkable glucose above 400 see those reports,, x-rays to the hands and forearms to my review showed nothing acute, given her diabetes given the white count given the potential for infection cellulitis I have asked the hospitalist see the patient for further management, IV fluids IV antibiotics given discussed with the daughter, we have had social service to see the patient related to her depression lack of compliance and intermittent suicidal ideation they will review all that to see if any urgent mental health evaluation is necessary. Treatment Plan: [] Disposition: [] Admit stable Impression: [] Cellulitis infection involving left greater than right upper extremity, diabetes mellitus, depression with intermittent thoughts of suicide, noncompliance, history of rheumatoid arthritis This note was generated with [employer] software. It may contain incorrect words, spelling, and punctuation that were not noted in review of the chart prior to signing ED Disposition - Plan for ED Patient: Chief Complaint: Depression Referrals: Edvin Buckley MD [Primary Care Provider] - What to do if you have Problems For any increased pain, shortness of breath, bleeding, nausea or vomiting, chest pain, or any unexpected problems, contact your Primary Care Provider. Call [facility] ([phone]) or report to the closest Emergency Room. Call 911 if necessary. 05/28/18 1605 <Electronically signed by Carlos Manzanares MD> Date Carlos Manzanares MD Cosigner Signature (If Indicated): Date CC: Edvin Buckley MD FOREARM 2 VIEWS Observed: 05/28/2018 Status: F Source: [place] 2:11 PM [facility] [place] [facility] Imaging Services [address] [place] [address] Forearm 2 Views MR#: [id number] Acct: [id number] Name: LILLY WALKER Rep #: [id number] : 1940 F 78 From: Magdaleno Correia DO PCP: Edvin Buckley MD Status: REG ER Study: Forearm 2 Views Date of Exam: 05/28/18 Exam# [id number] Ordering Dr: Carlos Manzanares MD STUDY: X-RAY - RIGHT RADIUS AND ULNA REASON FOR EXAM: Female, 78 years old. Redness and swelling TECHNIQUE: 2 view(s) of the forearm. COMPARISON: None. FINDINGS: Subcutaneous swelling Normal visualized radius. Normal visualized ulna. RAD/Forearm 2 Views IMPRESSION: No acute osseous findings. Likely cellulitis. Electronically Signed: Magdaleno Correia DO at 15:18 EST Tel , Service support , CC: MD Raya Manzanares; Edvin Buckley MD Fashion Editor: Signed HAND MIN 3 VIEWS Observed: 05/28/2018 Status: F Source: [place] 2:11 PM [facility] [place] [facility] Imaging Services [address] [place] [address] Hand Min 3 Views MR#: [id number] Acct: [id number] Name: LILLY WALKER Rep #: [id number] : 1940 F 78 From: Magdaleno Correia DO PCP: Edvin Buckley MD Status: REG ER Study: Hand Min 3 Views Date of Exam: 05/28/18 Exam# [id number] Ordering Dr: Carlos Manzanares MD STUDY: X-RAY - RIGHT HAND REASON FOR EXAM: Female, 78 years old. Right hand redness and swelling TECHNIQUE: 3 view(s) of the hand. COMPARISON: None. FINDINGS: No acute fracture or dislocation. Moderate to severe age-related degenerative changes. Degenerative change is significant at the first carpometacarpal joint. Soft tissue swelling. RAD/Hand Min 3 Views IMPRESSION: As above Electronically Signed: Magdaleno Correia DO at 15:19 EST Tel , Service support , CC: MD Raya Manzanares; Edvin Buckley MD Fashion Editor: Signed ERYTHROCYTE SED RATE Collected: 05/28/2018 Status: F Source: [place] 2:05 PM [facility] [place] [facility] TYPE CODE TESTS RESULT OUT OF RANGE REFERENCE UNITS LAB L102.0000 0-30 mm/hr Normal SED RATE 17 Performed By: #### L101.9900, L100.0100 #### [facility] [address] [place], [address] CBC W/DIFF, AUTOMATED Collected: 05/28/2018 Status: F Source: [place] 2:05 PM [facility] [place] [facility] TYPE CODE TESTS RESULT OUT OF RANGE REFERENCE UNITS LAB L100.1000 4.4-11.0 K/mm3 High WBC 18.7 LAB L100.1200 4.2-5.4 M/mm3 Normal RBC 5.26 LAB L100.1300 12.0-15.0 g/dl High HGB 15.3 LAB L100.1400 37-47 % Normal HCT 44.8 LAB L100.1500 81-99 fL Normal MCV 85.2 LAB L100.1600 27.0-32.0 pg Normal MCH 29.1 LAB L100.1700 32-36 g/gl Normal MCHC 34.2 LAB L100.1810 11.6-14.6 % Normal RDW CV 13.2 LAB L100.1820 35.1-43.9 fl Normal RDW SD 40.9 LAB L100.1900 150-450 K/mm3 Normal PLT 373 LAB L100.2000 6.2-12.0 fl Normal MPV 9.6 LAB L100.2100 47-70 % High NEUT% 95.0 LAB L100.2200 19-41 % Low LY% 4.1 LAB L100.2300 0-10 % Normal MONO% 0.5 LAB L100.2400 0-5 % Normal EO% 0.1 LAB L100.2500 0-1 % Normal BASO% 0.1 LAB L100.2550 0.0-0.9 % Normal IM GRAN % 0.200 Result Comment: IG% - Immature Granulocytes (promyelocytes, myelocytes and metamyelocytes) > 1% indicates that a LEFT SHIFT is Present. LAB L100.2620 2.0-7.7 X10 3/uL High Absolute Neut 17.8 LAB L100.2720 0.83-4.51 X10 3/ul Low Absolute Lymph 0.76 Performed By: #### L101.9900, L100.0100 #### [facility] [address] [place], [address] BASIC METABOLIC Collected: 05/28/2018 Status: F Source: [place] PROFILE (BMP) 2:05 PM [facility] [place] [facility] TYPE CODE TESTS RESULT OUT OF RANGE REFERENCE UNITS LAB L501.0100 74-106 mg/dL High GLU 396 Result Comment: Glucose result greater than or equal to 200 mg/dL suggests DIABETES MELLITUS per A.D.A. criteria. Please note revised GLUCOSE reference range effective 2017. LAB L501.1000 7-18 mg/dL High BUN 20 LAB L501.1100 0.55-1.02 mg/dL Normal CREAT,SERUM 0.86 Result Comment: The validity of the calculated GFR AND GFRAA in patients over 70 years has not been determined. Clinical correlation is essential. LAB L501.1110 >60 mL/min Normal EST GFR 68 Result Comment: Non- GFR Calc LAB L501.1115 >60 mL/min Normal EST GFR - AA 82 Result Comment: GFR Calc LAB L501.1255 ml/min Normal Estimated CRCL 50.08 LAB L501.1300 10-20 RATIO High BUN/CRE 23.1 LAB L501.2200 8.5-10 mg/dL Normal .1 CA 9.3 LAB L501.5300 136-14 mmol/L Normal 5 NA 136 LAB L501.5600 3.5-5. mmol/L Normal 1 K 4.5 LAB L501.5900 98-107 mmol/L Normal CL 100 LAB L501.6100 21.0-3 mmol/L Normal 2.0 CO2 26.0 LAB L501.6200 5-15 Normal GAP 10 Performed By: #### L500.2500, L501.6710 #### [facility] [address] [place], [address] CRP Collected: 05/28/2018 Status: F Source: [place] 2:05 [facility] [place] REPOSITORY TYPE CODE TESTS RESULT OUT OF RANGE REFERENCE UNITS LAB L501.6710 0.0-3.0 mg/L High 46.20 C-REACTIVE PROT Result Comment: C-Reactive Protein (CRP) provides useful information for the diagnosis, therapy and monitoring of inflammatory processes and associated diseases. For the evaluation of Relative Risk for Cardiovascular Disease, a High Sensitivity CRP (HSCRP) should be ordered. Performed By: #### L500.2500, L501.6710 #### [facility] [address], [place], [id number] HEMOGLOBIN A1C Collected: 05/28/2018 Status: F Source: [place] 2:05 [facility] [place] REPOSITORY TYPE CODE TESTS RESULT OUT OF RANGE REFERENCE UNITS LAB L501.9985 4.2-6.3 % High HGB A1C 9.7 Performed By: #### L501.9985 #### [facility] [address] [place], [address] LIVER PROFILE Collected: 05/28/2018 Status: F Source: [place] 2:05 [facility] [place] REPOSITORY TYPE CODE TESTS RESULT OUT OF RANGE REFERENCE UNITS LAB L501.1500 6.4-8.2 g/dL Normal T PROT 7.7 LAB L501.1800 3.2-5.0 g/dL Normal ALB 4.0 LAB L501.1950 2.2-4.2 g/dL Normal GLOB 3.7 LAB L501.4100 15-37 U/L Normal AST 28 LAB L501.4305 45-117 U/L Normal ALK P 117 LAB L501.4405 13-56 U/L Normal ALT 55 LAB L501.4600 0.20-1.00 mg/dL Normal T BILI 0.70 LAB L501.4700 0.00-0.30 mg/dL Normal D BILI 0.17 Performed By: #### L500.3400 #### [facility] [address] [place], [address] FOREARM 2 VIEWS Observed: 05/28/2018 Status: F Source: [place] 1:51 PM [facility] [place] [facility] Imaging Services [address] [place] [address] Forearm 2 Views MR#: [id number] Acct: [id number] Name: LILLY WALKER Rep #: [id number] : 1940 F 78 From: Magdaleno Correia DO PCP: Edvin Buckley MD Status: REG ER Study: Forearm 2 Views Date of Exam: 05/28/18 Exam# [id number] Ordering Dr: Carlos Manzanares MD STUDY: X-RAY - LEFT RADIUS AND ULNA REASON FOR EXAM: Female, 78 years old. Redness and swelling TECHNIQUE: 2 view(s) of the forearm. COMPARISON: None. FINDINGS: Subcutaneous swelling Normal visualized radius. Normal visualized ulna. RAD/Forearm 2 Views IMPRESSION: Subcutaneous swelling, likely cellulitis. No acute osseous findings Electronically Signed: Magdaleno Correia DO at 15:19 EST Tel , Service support , CC: MD Raya Manzanares; Edvin Buckley MD Fashion Editor: Signed HAND MIN 3 VIEWS Observed: 05/28/2018 Status: F Source: [place] 1:51 PM [facility] [place] [facility] Imaging Services [address] [place] [address] Hand Min 3 Views MR#: [id number] Acct: [id number] Name: LILLY WALKER Rep #: [id number] : 1940 F 78 From: Magdaleno Correia DO PCP: Edvin Buckley MD Status: REG ER Study: Hand Min 3 Views Date of Exam: 05/28/18 Exam# [id number] Ordering Dr: Carlos Manzanares MD STUDY: X-RAY - LEFT HAND REASON FOR EXAM: Female, 78 years old. Left hand pain and swelling TECHNIQUE: 3 view(s) of the hand. COMPARISON: None. FINDINGS: No acute fracture or dislocation. Age-related degenerative changes, most severe at the first carpometacarpal joint. Soft tissue swelling diffusely. RAD/Hand Min 3 Views IMPRESSION: As above Electronically Signed: Magdaleno Correia DO at 15:20 EST Tel , Service support , CC: MD Raya Manzanares; Edvin Buckley MD Fashion Editor: Signed PROCEDURE Observed: 05/28/2018 Status: COMPLETED Source: [place] 1:15 PM [facility] REPOSITORY [facility] ID: [id number] Author: Libia Raymond Service: (none) Author Type: Nurse Practitioner Type: Procedures Filed: 05/28/2018 1:21 PM Note Text: Pt accompanied by daughter. Daughter states pt was evaluated by Chef Manager on 05/23/18 for f/u and acute flare of sx. rx for methotrexate and relafen were sent to pharmacy. Pt did not pick them up. Pt has not been taking since several days before then. Daughter attempted to pick them up today and pharmacist states rx were canceled the following day by the provider. Pt presents today requesting rx for above medications. Pt is not a [facility] pt. Pt also c/o bilateral arms swelling, pain and redness, diarrhea and fever. Requesting lab work. Temp 37.2 ?C (99 ?F) (Right Tympanic) Wt 77.6 kg (171 lb) BMI 29.35 kg/m? .Patient presents with: Acute Visit: itchy rash on HERNESTO hands AND forearms x this morning PAST MEDICAL HISTORY Diagnosis Date - Depression - IBS (irritable bowel syndrome) - Unspecified essential hypertension PAST SURGICAL HISTORY Procedure Laterality Date - LAP CHOLECYSTECT/CHOLANGIOGRAPHY 2008 - PAST SURGICAL HISTORY OF Left left oophorectomy/appendectomy - PAST SURGICAL HISTORY OF tummy tuck, face lift, breast implants - TONSILLECTOMY HX - TOTAL ABDOM HYSTERECTOMY 1986 Hysterectomy, JUDY - TOTAL KNEE REPLACEMENT Bilateral ALLERGIES Codeine; Seasonal Allergies MEDICATIONS atenolol (TENORMIN) 50 mg tablet Take 50 mg by mouth once daily. cyanocobalamin (VITAMIN B-12) 1,000 mcg tab Take 1,000 mcg by mouth once daily. DULoxetine (CYMBALTA) 30 mg capsule Take 1 capsule by mouth once daily. DULoxetine (CYMBALTA) 60 mg capsule Take 60 mg by mouth once daily. methotrexate (TREXALL) 15 mg tablet Take 15 mg by mouth once daily. nabumetone (RELAFEN) 750 mg tablet Take 750 mg by mouth once daily. aspirin, enteric coated (ADULT LOW DOSE ASPIRIN) 81 mg ORAL EC tablet Take 1 tablet by mouth once daily. bifidobacterium infantis(ALIGN 4 MG CAP) Cholecalciferol, Vitamin D3, 1,000 unit cap Take 1,000 Units by mouth once daily. hydroxychloroquine (PLAQUENIL) 200 mg ORAL tablet Take 1 tablet by mouth twice daily. lisinopril (PRINIVIL) 10 mg ORAL tablet Take 1 tablet by mouth once daily. [id number]-[id number]-[id number]-mnyb no.26 0.5-15 mg cap Take by mouth once daily. 7.5mg tablet nebivolol (BYSTOLIC) 10 mg ORAL tablet Take 1 tablet by mouth once daily. RED YEAST RICE EXTRACT 600 MG CAP Take one(1) tablet daily. FAMILY HISTORY Problem Relation Age of Onset - Diabetes Father - Diabetes Paternal Grandfather Social History Substance Use Topics - Smoking status: Never Smoker - Smokeless tobacco: Never Used - Alcohol use No ASSESSMENT/PLAN: 1. Rheumatoid arthritis involving multiple sites with positive rheumatoid factor (HCC) - ICD9: 714.0, ICD10: M05.79 Referred to ED. Pt declines to go to [facility].. The [facility] ED is where she chooses to go as her PCP and Chef Manager are in that network. Libia Raymond APRN.TELEPHONE SEX WORKER CNOV Observed: 05/28/2018 Status: COMPLETED Source: [place] 12:45 PM [facility] REPOSITORY [facility] ([id number]) 1940 F Date Time Provider Department 05/28/18 12:45 PM LIBIA RAYMOND FRANSISCO During your visit today, we recorded the following information about you: Temperature Weight 99 degrees 77.6 kg Libia Raymond APRN.[place] 05/28/2018 1:21 PM Signed Pt accompanied by daughter. Daughter states pt was evaluated by Chef Manager on 05/23/18 for f/u and acute flare of sx. rx for methotrexate and relafen were sent to pharmacy. Pt did not pick them up. Pt has not been taking since several days before then. Daughter attempted to pick them up today and pharmacist states rx were canceled the following day by the provider. Pt presents today requesting rx for above medications. Pt is not a [facility] pt. Pt also c/o bilateral arms swelling, pain and redness, diarrhea and fever. Requesting lab work. Temp 37.2 ?C (99 ?F) (Right Tympanic) Wt 77.6 kg (171 lb) BMI 29.35 kg/m? .Patient presents with: Acute Visit: itchy rash on HERNESTO hands AND forearms x this morning PAST MEDICAL HISTORY Diagnosis Date - Depression - IBS (irritable bowel syndrome) - Unspecified essential hypertension PAST SURGICAL HISTORY Procedure Laterality Date - LAP CHOLECYSTECT/CHOLANGIOGRAPHY 2008 - PAST SURGICAL HISTORY OF Left left oophorectomy/appendectomy - PAST SURGICAL HISTORY OF tummy tuck, face lift, breast implants - TONSILLECTOMY HX - TOTAL ABDOM HYSTERECTOMY 1986 Hysterectomy, JUDY - TOTAL KNEE REPLACEMENT Bilateral ALLERGIES Codeine; Seasonal Allergies MEDICATIONS atenolol (TENORMIN) 50 mg tablet Take 50 mg by mouth once daily. cyanocobalamin (VITAMIN B-12) 1,000 mcg tab Take 1,000 mcg by mouth once daily. DULoxetine (CYMBALTA) 30 mg capsule Take 1 capsule by mouth once daily. DULoxetine (CYMBALTA) 60 mg capsule Take 60 mg by mouth once daily. methotrexate (TREXALL) 15 mg tablet Take 15 mg by mouth once daily. nabumetone (RELAFEN) 750 mg tablet Take 750 mg by mouth once daily. aspirin, enteric coated (ADULT LOW DOSE ASPIRIN) 81 mg ORAL EC tablet Take 1 tablet by mouth once daily. bifidobacterium infantis(ALIGN 4 MG CAP) Cholecalciferol, Vitamin D3, 1,000 unit cap Take 1,000 Units by mouth once daily. hydroxychloroquine (PLAQUENIL) 200 mg ORAL tablet Take 1 tablet by mouth twice daily. lisinopril (PRINIVIL) 10 mg ORAL tablet Take 1 tablet by mouth once daily. [id number]-wzsoar-[id number]-kscc no.26 0.5-15 mg cap Take by mouth once daily. 7.5mg tablet nebivolol (BYSTOLIC) 10 mg ORAL tablet Take 1 tablet by mouth once daily. RED YEAST RICE EXTRACT 600 MG CAP Take one(1) tablet daily. FAMILY HISTORY Problem Relation Age of Onset - Diabetes Father - Diabetes Paternal Grandfather Social History Substance Use Topics - Smoking status: Never Smoker - Smokeless tobacco: Never Used - Alcohol use No ASSESSMENT/PLAN: 1. Rheumatoid arthritis involving multiple sites with positive rheumatoid factor (HCC) - ICD9: 714.0, ICD10: M05.79 Referred to ED. Pt declines to go to [facility].. The [facility] ED is where she chooses to go as her PCP and Chef Manager are in that network. Libia Raymond, BRISA.TELEPHONE SEX WORKER Referring Provider: SELF [200] Allergies As of Date: 05/28/2018 Noted Allergy Reaction CODEINE 09/11/2015 8 - GI Upset SEASONAL ALLERGIES 10/14/2015 5 - Intolerance Date Reviewed: 05/28/2018 Reviewed by: Reyna Schultz Ma - Fully Assessed Reason for Visit: Acute Visit [896] Cmt: itchy rash on HERNESTO hands AND forearms x this morning Primary Visit Diagnosis:Rheumatoid arthritis involving multiple sites with positive rheumatoid factor (HCC) [M05.79] Prescriptions as of 05/28/2018 Sig: ATENOLOL 50 MG TABLET Take 50 mg by mouth once kiet* CYANOCOBALAMIN (VIT B-12) 1,0* Take 1,000 mcg by mouth once * DULOXETINE 30 MG CAPSULE,RICK* Take 1 capsule by mouth once * DULOXETINE 60 MG CAPSULE,RICK* Take 60 mg by mouth once kiet* METHOTREXATE SODIUM 15 MG TAB* Take 15 mg by mouth once kiet* NABUMETONE 750 MG TABLET Take 750 mg by mouth once tricia* ASPIRIN 81 MG TABLET,DELAYED * Take 1 tablet by mouth once d* ALIGN 4 MG CAPSULE CHOLECALCIFEROL (VITAMIN D3) * Take 1,000 Units by mouth onc* HYDROXYCHLOROQUINE 200 MG TAB* Take 1 tablet by mouth twice * LISINOPRIL 10 MG TABLET Take 1 tablet by mouth once d* ZLGGORXK-SHI-BGAPVXXAWDIE GLU* Take by mouth once daily. 7.* NEBIVOLOL 10 MG TABLET Take 1 tablet by mouth once d* RED YEAST RICE 600 MG CAPSULE Take one(1) tablet daily. Medication notes this encounter DULOXETINE 60 MG CAPSULE,DELAYED RELEASE >> Reyna Schultz Ma 05/28/2018 1:02 PM >> REYNA SCHULTZ MA May 28, 2018 1:02 PM Problem List As Of Date 05/28/2018 Noted Resolved Rectocele [N81.6] INVALID FOR* Rectal incontinence [R15.9] INVALID FOR* Encounter Status:Closed by LIBIA RAYMOND CNP on 05/28/18 COMPREHENSIVE METABOLIC Collected: 05/23/2018 Status: F Source: [place] 3:27 PM [facility] [place] TYPE CODE TESTS RESULT OUT OF RANGE REFERENCE UNITS LAB L501.0100 74-106 mg/dL High GLU 244 Result Comment: Glucose result greater than or equal to 200 mg/dL suggests DIABETES MELLITUS per A.D.A. criteria. Please note revised GLUCOSE reference range effective 2017. LAB L501.1000 7-18 mg/dL Normal BUN 11 LAB L501.1100 0.55-1.02 mg/dL Normal CREAT,SERUM 0.70 Result Comment: The validity of the calculated GFR AND GFRAA in patients over 70 years has not been determined. Clinical correlation is essential. LAB L501.1110 >60 mL/min Normal EST GFR 87 Result Comment: Non- GFR Calc LAB L501.1115 >60 mL/min Normal EST GFR - AA 106 Result Comment: GFR Calc LAB L501.1300 10-20 RATIO Normal BUN/CRE 15.8 LAB L501.1500 6.4-8.2 g/dL T Normal PROT 7.6 LAB L501.1800 3.2-5.0 g/dL Normal ALB 4.0 LAB L501.1950 2.2-4.2 g/dL Normal GLOB 3.6 LAB L501.2000 0.9-2.4 RATIO Normal A/G 1.1 LAB L501.2200 8.5-10.1 mg/dL CA Normal 9.0 LAB L501.4100 15-37 U/L High AST 48 LAB L501.4305 45-117 U/L High ALK P 125 LAB L501.4405 13-56 U/L High ALT 73 LAB L501.4600 0.20-1.00 mg/dL T Normal BILI 0.60 LAB L501.5300 136-145 mmol/L NA Normal 138 LAB L501.5600 3.5-5.1 mmol/L K Normal 3.7 LAB L501.5900 98-107 mmol/L CL Normal 101 LAB L501.6100 21.0-32.0 mmol/L Normal CO2 28.0 LAB L501.6200 5-15 Normal GAP 9 Performed By: #### L500.4050 #### [facility] [place], [address] CBC W/DIFF, AUTOMATED Collected: 05/23/2018 Status: F Source: [place] 3:27 PM [facility] [place] TYPE CODE TESTS RESULT OUT OF RANGE REFERENCE UNITS LAB L100.1000 4.4-11.0 K/mm3 Normal WBC 10.7 LAB L100.1200 4.2-5.4 M/mm3 Normal RBC 5.27 LAB L100.1300 12.0-15.0 g/dl Normal HGB 15.0 LAB L100.1400 37-47 % Normal HCT 45.7 LAB L100.1500 81-99 fL Normal MCV 86.7 LAB L100.1600 27.0-32.0 pg Normal MCH 28.5 LAB L100.1700 32-36 g/gl Normal MCHC 32.8 LAB L100.1810 11.6-14.6 % Normal RDW CV 13.1 LAB L100.1820 35.1-43.9 fl Normal RDW SD 41.8 LAB L100.1900 150-450 K/mm3 Normal PLT 428 LAB L100.2000 6.2-12.0 fl Normal MPV 9.8 LAB L100.2100 47-70 % Normal NEUT% 66.8 LAB L100.2200 19-41 % Normal LY% 22.8 LAB L100.2300 0-10 % Normal MONO% 5.6 LAB L100.2400 0-5 % Normal EO% 4.1 LAB L100.2500 0-1 % Normal BASO% 0.6 LAB L100.2550 0.0-0.9 % Normal IM GRAN % 0.100 Result Comment: IG% - Immature Granulocytes (promyelocytes, myelocytes and metamyelocytes) > 1% indicates that a LEFT SHIFT is Present. LAB L100.2620 2.0-7.7 X10 3/uL Normal Absolute Neut 7.2 LAB L100.2720 0.83-4.51 X10 3/ul Normal Absolute Lymph 2.44 Performed By: #### L100.0100 #### [facility] [address] [place], [address] BRAIN/HEAD WITHOUT Observed: 04/20/2018 Status: F Source: [place] CONTRAST 12:58 PM [facility] [place] [facility] Imaging Services [address] [place] [address] Brain/Head without Contrast MR#: [id number] Acct: [id number] Name: LILLY WALKER Rep #: [id number] : 1940 F 78 From: Clint Chi MD PCP: Edvin Buckley MD Status: REG CLI Study: Brain/Head without Contrast Date of Exam: 04/20/18 Exam# [id number] Ordering Dr: Edvin Buckley MD STUDY: CT BRAIN WITHOUT CONTRAST REASON FOR EXAM: Female, 78 years old. Memory loss RADIATION DOSAGE (If Supplied By Facility): CTDIvol = ( 44.99 ) mGy, DLP = ( 745.49 ) mGycm TECHNIQUE: Transaxial CT imaging of the brain was performed without administration of intravenous contrast material. Individualized dose optimization techniques were used for this CT. COMPARISON: None. FINDINGS: Normal soft tissue structures. Normal calvarium. There is mild to moderate cerebral atrophy with widening of the extra-axial spaces and ventricular dilatation. There is mild bilateral periventricular and subcortical white matter hypoattenuation which is symmetric in distribution. Normal basal ganglia and thalami. Normal brainstem. Normal cerebellum. There is no intracranial hemorrhage. There are no findings of an acute ischemic infarction. Normal visualized paranasal sinuses. CT/Brain/Head without Contrast IMPRESSION: 1. No evidence of an acute intracranial abnormality. 2. Mild to moderate bilateral periventricular and subcortical white matter chronic small vessel disease with age appropriate cerebral atrophy. Electronically Signed: Clint Chi MD at 3:51 EST Tel , Service support , CC: Edvin Buckley MD Fashion Editor: Signed THYROID STIM HORMONE Collected: 03/27/2018 Status: F Source: [place] (TSH) 10:30 AM [facility] [place] TYPE CODE TESTS RESULT OUT OF RANGE REFERENCE UNITS LAB L501.9520 0.358-3.74 uIU/mL Normal TSH 1.19 Performed By: #### L501.9520, L506.0400 #### [facility] [address] [place], [place], [address] T4 FREE DIRECT Collected: 03/27/2018 Status: F Source: [place] 10:30 AM [facility] [place] TYPE CODE TESTS RESULT OUT OF RANGE REFERENCE UNITS LAB L506.0400 0.76-1.46 ng/dL Normal T4 FREE 0.90 DIRECT Performed By: #### L501.9520, L506.0400 #### [facility] [address] [place], [place], [address] VITAMIN B12 Collected: 03/27/2018 Status: F Source: [place] 10:30 AM [facility] [place] TYPE CODE TESTS RESULT OUT OF REFERENCE UNITS RANGE LAB L503.0105 211-911 pg/mL High Vitamin B12 950 Performed By: #### L503.0105, L506.1000 #### [facility] [address] [place], [place], [address] VITAMIN D,25 HYDROXY Collected: 03/27/2018 Status: F Source: [place] 10:30 AM [facility] [place] TYPE CODE TESTS RESULT OUT OF RANGE REFERENCE UNITS LAB L506.1000 29.95-100.01 ng/mL Normal Vitamin D 38.1 25-OH Result Comment: Vitamin D 25(OH) Status Range Deficiency <20 ng/mL (50nmol/L) Insuffciency 20 - 30 ng/mL (50 - 75 nmol/L) Sufficiency 30 - 100 ng/mL (75 - 250 nmol/L) Toxicity >100 ng/mL (>250 nmol/L) Performed By: #### L503.0105, L506.1000 #### [facility] [address] [place], [address] CBC W/DIFF, AUTOMATED Collected: 03/24/2018 Status: F Source: [place] 7:26 AM [facility] [place] TYPE CODE TESTS RESULT OUT OF RANGE REFERENCE UNITS LAB L100.1000 4.4-11.0 K/mm3 Normal WBC 11.0 LAB L100.1200 4.2-5.4 M/mm3 Normal RBC 5.09 LAB L100.1300 12.0-15.0 g/dl High HGB 15.2 LAB L100.1400 37-47 % Normal HCT 44.9 LAB L100.1500 81-99 fL Normal MCV 88.2 LAB L100.1600 27.0-32.0 pg Normal MCH 29.9 LAB L100.1700 32-36 g/gl Normal MCHC 33.9 LAB L100.1810 11.6-14.6 % Normal RDW CV 12.5 LAB L100.1820 35.1-43.9 fl Normal RDW SD 40.3 LAB L100.1900 150-450 K/mm3 High PLT 493 LAB L100.2000 6.2-12.0 fl Normal MPV 9.3 LAB L100.2100 47-70 % High NEUT% 70.5 LAB L100.2200 19-41 % Low LY% 17.5 LAB L100.2300 0-10 % Normal MONO% 6.6 LAB L100.2400 0-5 % Normal EO% 4.6 LAB L100.2500 0-1 % Normal BASO% 0.5 LAB L100.2550 0.0-0.9 % Normal IM GRAN % 0.300 Result Comment: IG% - Immature Granulocytes (promyelocytes, myelocytes and metamyelocytes) > 1% indicates that a LEFT SHIFT is Present. LAB L100.2620 2.0-7.7 X10 3/uL High Absolute Neut 7.8 LAB L100.2720 0.83-4.51 X10 3/ul Normal Absolute Lymph 1.93 Performed By: #### L100.0100 #### [facility] [address] [place], [address] COMPREHENSIVE METABOLIC Collected: 03/24/2018 Status: F Source: [facility] 7:26 AM [facility] [place] TYPE CODE TESTS RESULT OUT OF RANGE REFERENCE UNITS LAB L501.0100 74-106 mg/dL High GLU 201 Result Comment: Glucose result greater than or equal to 200 mg/dL suggests DIABETES MELLITUS per A.D.A. criteria. Please note revised GLUCOSE reference range effective 2017. LAB L501.1000 7-18 mg/dL Normal BUN 9 LAB L501.1100 0.55-1.02 mg/dL Normal CREAT,SERUM 0.70 Result Comment: The validity of the calculated GFR AND GFRAA in patients over 70 years has not been determined. Clinical correlation is essential. LAB L501.1110 >60 mL/min Normal EST GFR 87 Result Comment: Non- GFR Calc LAB L501.1115 >60 mL/min Normal EST GFR - AA 105 Result Comment: GFR Calc LAB L501.1300 10-20 RATIO Normal BUN/CRE 12.9 LAB L501.1500 6.4-8.2 g/dL T Normal PROT 7.6 LAB L501.1800 3.2-5.0 g/dL Normal ALB 3.6 LAB L501.1950 2.2-4.2 g/dL Normal GLOB 4.0 LAB L501.2000 0.9-2.4 RATIO Normal A/G 0.9 LAB L501.2200 8.5-10.1 mg/dL CA Normal 9.4 LAB L501.4100 15-37 U/L Normal AST 24 LAB L501.4305 45-117 U/L Normal ALK P 114 LAB L501.4405 13-56 U/L Normal ALT 47 LAB L501.4600 0.20-1.00 mg/dL T Normal BILI 0.50 LAB L501.5300 136-145 mmol/L NA Normal 140 LAB L501.5600 3.5-5.1 mmol/L K Normal 3.7 LAB L501.5900 98-107 mmol/L CL Normal 102 LAB L501.6100 21.0-32.0 mmol/L Normal CO2 29.0 LAB L501.6200 5-15 Normal GAP 9 Performed By: #### L500.4050 #### [facility] [address] [place] [place], [address] CBC W/DIFF, AUTOMATED Collected: 01/03/2018 Status: F Source: [place] 2:29 PM [facility] [place] TYPE CODE TESTS RESULT OUT OF RANGE REFERENCE UNITS LAB L100.1000 4.4-11.0 K/mm3 Normal WBC 9.7 LAB L100.1200 4.2-5.4 M/mm3 Normal RBC 4.68 LAB L100.1300 12.0-15.0 g/dl Normal HGB 14.3 LAB L100.1400 37-47 % Normal HCT 42.4 LAB L100.1500 81-99 fL Normal MCV 90.6 LAB L100.1600 27.0-32.0 pg Normal MCH 30.6 LAB L100.1700 32-36 g/gl Normal MCHC 33.7 LAB L100.1810 11.6-14.6 % Normal RDW CV 14.4 LAB L100.1820 35.1-43.9 fl High RDW SD 47.0 LAB L100.1900 150-450 K/mm3 Normal PLT 404 LAB L100.2000 6.2-12.0 fl Normal MPV 9.4 LAB L100.2100 47-70 % Normal NEUT% 64.0 LAB L100.2200 19-41 % Normal LY% 21.5 LAB L100.2300 0-10 % Normal MONO% 8.7 LAB L100.2400 0-5 % High EO% 5.1 LAB L100.2500 0-1 % Normal BASO% 0.5 LAB L100.2550 0.0-0.9 % Normal IM GRAN % 0.200 Result Comment: IG% - Immature Granulocytes (promyelocytes, myelocytes and metamyelocytes) > 1% indicates that a LEFT SHIFT is Present. LAB L100.2620 2.0-7.7 X10 3/uL Normal Absolute Neut 6.2 LAB L100.2720 0.83-4.51 X10 3/ul Normal Absolute Lymph 2.08 Performed By: #### L100.0100 #### [facility] [address] [place], [address] COMPREHENSIVE METABOLIC Collected: 01/03/2018 Status: F Source: [facility] 2:29 PM [facility] [place] TYPE CODE TESTS RESULT OUT OF RANGE REFERENCE UNITS LAB L501.0100 74-106 mg/dL High GLU 186 Result Comment: Fasting Glucose result greater than or equal to 126 mg/dL suggests DIABETES MELLITUS per A.D.A. criteria. Please note revised GLUCOSE reference range effective 2017. LAB L501.1000 7-18 mg/dL Normal BUN 11 LAB L501.1100 0.55-1.02 mg/dL Normal CREAT,SERUM 0.73 Result Comment: The validity of the calculated GFR AND GFRAA in patients over 70 years has not been determined. Clinical correlation is essential. LAB L501.1110 >60 mL/min Normal EST GFR 82 Result Comment: Non- GFR Calc LAB L501.1115 >60 mL/min Normal EST GFR - AA 99 Result Comment: GFR Calc LAB L501.1300 10-20 RATIO Normal BUN/CRE 15.0 LAB L501.1500 6.4-8.2 g/dL T Normal PROT 7.4 LAB L501.1800 3.2-5.0 g/dL Normal ALB 3.7 LAB L501.1950 2.2-4.2 g/dL Normal GLOB 3.7 LAB L501.2000 0.9-2.4 RATIO Normal A/G 1.0 LAB L501.2200 8.5-10.1 mg/dL CA Normal 9.3 LAB L501.4100 15-37 U/L Normal AST 25 LAB L501.4305 45-117 U/L Normal ALK P 90 LAB L501.4405 13-56 U/L Normal ALT 48 LAB L501.4600 0.20-1.00 mg/dL T Normal BILI 0.30 LAB L501.5300 136-145 mmol/L NA Normal 139 LAB L501.5600 3.5-5.1 mmol/L K Normal 4.0 LAB L501.5900 98-107 mmol/L CL Normal 102 LAB L501.6100 21.0-32.0 mmol/L Normal CO2 28.0 LAB L501.6200 5-15 Normal GAP 9 Performed By: #### L500.4050 #### [facility] [address] [place], [place], [address] CBC W/DIFF, AUTOMATED Collected: 08/17/2017 Status: F Source: [place] 2:46 PM [facility] [place] TYPE CODE TESTS RESULT OUT OF RANGE REFERENCE UNITS LAB L100.1000 4.4-11.0 K/mm3 High WBC 11.8 LAB L100.1200 4.2-5.4 M/mm3 Normal RBC 4.85 LAB L100.1300 12.0-15.0 g/dl Normal HGB 13.4 LAB L100.1400 37-47 % Normal HCT 42.1 LAB L100.1500 81-99 fL Normal MCV 86.8 LAB L100.1600 27.0-32.0 pg Normal MCH 27.6 LAB L100.1700 32-36 g/gl Low MCHC 31.8 LAB L100.1810 11.6-14.6 % High RDW CV 15.1 LAB L100.1820 35.1-43.9 fl High RDW SD 47.7 LAB L100.1900 150-450 K/mm3 Normal PLT 445 LAB L100.2000 6.2-12.0 fl Normal MPV 8.9 LAB L100.2100 47-70 % Normal NEUT% 66.9 LAB L100.2200 19-41 % Normal LY% 22.9 LAB L100.2300 0-10 % Normal MONO% 5.2 LAB L100.2400 0-5 % Normal EO% 4.3 LAB L100.2500 0-1 % Normal BASO% 0.4 LAB L100.2550 0.0-0.9 % Normal IM GRAN % 0.300 Result Comment: IG% - Immature Granulocytes (promyelocytes, myelocytes and metamyelocytes) > 1% indicates that a LEFT SHIFT is Present. LAB L100.2620 2.0-7.7 X10 3/uL High Absolute Neut 7.9 LAB L100.2720 0.83-4.51 X10 3/ul Normal Absolute Lymph 2.69 Performed By: #### L100.0100 #### [facility] [address] [place], [place], [address] COMPREHENSIVE METABOLIC Collected: 08/17/2017 Status: F Source: [facility] 2:46 PM [facility] [place] TYPE CODE TESTS RESULT OUT OF RANGE REFERENCE UNITS LAB L501.0100 74-106 mg/dL Normal GLU 105 Result Comment: Fasting Glucose result from 100 to 125 mg/dL suggests IMPAIRED HOMEOSTASIS per A.D.A. criteria. Please note revised GLUCOSE reference range effective 2017. LAB L501.1000 7-18 mg/dL Normal BUN 15 LAB L501.1100 0.55-1.02 mg/dL Normal CREAT,SERUM 0.64 Result Comment: The validity of the calculated GFR AND GFRAA in patients over 70 years has not been determined. Clinical correlation is essential. LAB L501.1110 >60 mL/min Normal EST GFR 97 Result Comment: Non- GFR Calc LAB L501.1115 >60 mL/min Normal EST GFR - AA 117 Result Comment: GFR Calc LAB L501.1300 10-20 RATIO High BUN/CRE 23.6 LAB L501.1500 6.4-8.2 g/dL T Normal PROT 7.5 LAB L501.1800 3.2-5.0 g/dL Normal ALB 3.6 LAB L501.1950 2.2-4.2 g/dL Normal GLOB 3.9 LAB L501.2000 0.9-2.4 RATIO Normal A/G 0.9 LAB L501.2200 8.5-10.1 mg/dL CA Normal 9.3 LAB L501.4100 15-37 U/L Normal AST 27 LAB L501.4305 45-117 U/L Normal ALK P 113 LAB L501.4405 13-56 U/L High ALT 58 Result Comment: Please note revised ALT reference range effective 2017. LAB L501.4600 0.20-1.00 mg/dL Normal T BILI 0.40 LAB L501.5300 136-145 mmol/L Normal NA 138 LAB L501.5600 3.5-5.1 mmol/L Normal K 4.1 LAB L501.5900 98-107 mmol/L Normal CL 98 LAB L501.6100 21.0-32.0 mmol/L High CO2 34.0 LAB L501.6200 5-15 Normal GAP 6 Performed By: #### L500.4050 #### [facility] [address] [place], [address] ALLERGIES ALLERGIES DATE TYPE / CODE NAME / CODE REACTION SEVERITY SOURCE 06/19/2018 Drug codeine/[id number] Vomiting Unknown [place] Allergy/416 50(RXNORM) [facility] 113426([facility] ED CT) Repository 10/14/2015 Environ/420 SEASONAL INTOLERANCE [facility] [id number]([facility] ALLERGIES [facility] [place] [facility]) Repository 09/11/2015 DRUG CODEINE GI UPSET [facility] INGREDI/419 [facility] [place] 615002([facility] Repository ED CT) ENCOUNTERS ENCOUNTERS ADMIT/DISCHARGE ACCOUNT ADMITTING ENCOUNTER LOCATION SOURCE NUMBER CLASS 06/19/2018/06/19/19 [id number] Emergency [address] ing:ED Repository 05/28/2018/05/29/20 [id number] [place], Ambulatory [facility] 18 [facility] ing:ME1Gfsn: Repository [id number]: 1 05/28/2018 [id number] Florinda Cottrell BMSBuilding:Ana Ayala MS.[facility] Repository 05/28/2018 [id number] Florinda Cottrell BMSBuilding:Ana Ayala MS.[facility] Repository 05/28/2018/05/28/20 [id number] Ambulatory [address] Repository 05/23/2018 [id number] [facility] ing:MTLAB Repository 04/20/2018 [id number] Ambulatory [facility] ing:CT Repository 03/27/2018 [id number] [facility] ing:BFHLAB Repository 03/24/2018 [id number] [facility] ing:LAB Repository 01/03/2018 [id number] [facility] ing:MTLAB Repository 08/17/2017 [id number] [facility] ing:MTLAB Repository PAYERS PAYERS ENCOUNTER GUARANTOR PAYER SUBSCRIBER SOURCE 06/19/2018 LILLY Kalyan Primary LILLY Sylvester [id number] Insurance:MEDICARE WALDRONDOB: Community DANBERRY PART A [facility] [id number] Number: Repository [id number]: 330 [id number] [phone] () Date:2018-06-19 06/19/2018 Secondary LILLY Kalyan Nga Insurance:MUTUAL OF WALDRONDOB: Critical access hospital Number: [id number] [id number] Repository Date:2447-15-43OMNRYN OF [place], [place] [address]MC: 06/19/2018 Tertiary NOT GIVENUNK Nga Insurance:SELF PAY [facility] Number: Effective Repository Date:2018-06-19 05/28/2018 LILLY Biggs Primary LILLY Sylvester [id number] Insurance:MEDICARE WALDRONDOB: [facility] DANBERRY PART A [facility] [id number] [place] [address] Number: Repository [id number]: 330 [id number] [phone] (HP) Date:2018-05-28 05/28/2018 Secondary LILLY Biggs Nga Insurance:MUTUAL OF WALDRONDOB: Critical access hospital Number: [id number] [facility] [id number] Repository Date:1590[place]14[place]42[place], [place] [address]VF: 05/28/2018 Tertiary NOT GIVENUNK Nga Insurance:SELF PAY [facility] Number: Effective Repository Date:2018-05-28 05/28/2018 LILLY Biggs Primary LILLY Biggs Nga [id number] Insurance:MEDICARE WALDRONDOB: Community DANBERRY PART A [facility] [id number] [place] [address] Number: Repository [id number]: 330 [id number] [phone] (HP) Date:2018-05-28 05/28/2018 Secondary LILLY Biggs [place] Insurance:MUTUAL OF WALDRONDOB: Critical access hospital Number: [id number] Hospital [id number] Repository Date:0983-73-76ZTLJVJ OF [place], [place] [address]DB: 05/28/2018 Tertiary NOT GIVENUNK Nga Insurance:SELF PAY [facility] Number: Effective Repository Date:2018-05-28 05/28/2018 LILLY Biggs Primary LILLY Biggs [place] [id number] Insurance:MEDICARE WALDRONDOB: Community DANBERRY PART A [facility] [id number] [place] [address] Number: Repository [id number]: 330 [id number] [phone] (HP) Date:2018-05-28 05/28/2018 Secondary LILLY Biggs Nga Insurance:MUTUAL OF WALDRONDOB: Critical access hospital Number: [id number] [id number] Repository Date:1266-09-78TXPNJF OF [place], [place] [address]DZ: 05/28/2018 Tertiary NOT GIVENUNK [place] Insurance:SELF PAY [facility] Number: Effective Repository Date:2018-05-28 05/23/2018 LILLY Biggs Primary LILLY Biggs Nga [id number] Insurance:MEDICARE WALDRONDOB: Community DANBERRY PART A [facility] [id number] [place] [address] Number: Repository [id number]: 330 [id number] [phone] (HP) Date:2018-05-23 05/23/2018 Secondary LILLY Biggs [place] Insurance:MUTUAL OF WALDRONDOB: Critical access hospital Number: [id number] Hospital [id number] Repository Date:1548[place]87[place], [place] [address]XU: 05/23/2018 Tertiary NOT GIVENUNK [place] Insurance:SELF PAY [facility] Number: Effective Repository Date:2018-05-23 04/20/2018 LILLY Biggs Primary LILLY Santoyooster [id number] Insurance:MEDICARE WALDRONDOB: Community DANBERRY PART A [facility] [id number] Number[place] Repository [id number]: 330 [id number] [phone] () Date:2018-04-13 04/20/2018 Secondary LILLY Biggs Nga Insurance:MUTUAL OF WALDRONDOB: Critical access hospital Number: [id number] [id number] Repository Date:2914-13-59XKKVXD OF [place], [place] [address]IR: 04/20/2018 Tertiary NOT GIVENUNK Nga Insurance:SELF PAY [facility] Number: Effective Repository Date:2018-04-13 03/27/2018 LILLY Biggs Primary LILLY Santoyooster [id number] Insurance:MEDICARE WALDRONDOB: [facility] DANBERRY PART A [facility] [id number] Number: Repository [id number]: 330 [id number] [phone] () Date:2018-03-27 03/27/2018 Secondary LILLY Biggs Nga Insurance:MUTUAL OF WALDRONDOB: Critical access hospital Number: [id number] Hospital [id number] Repository Date:6114-73-76OZHKCXINGLEWOOD, [place] [address]UP: 03/27/2018 Tertiary NOT GIVENUNK Nga Insurance:SELF PAY [facility] Number: Effective Repository Date:2018-03-27 03/24/2018 LILLY Biggs Primary LILLY Biggs Nga [id number] Insurance:MEDICARE WALDRONDOB: Community DANBERRY PART A [facility] [id number] Number: Repository [id number]: [phone] [id number] [phone] (HP) Date:2018-03-24 03/24/2018 Secondary LILLY Biggs [place] Insurance:MUTUAL OF WALDRONDOB: Critical access hospital Number: [id number] Hospital [id number] Repository Date:7084-84-07IQJFCY OF [facility], [place] [address]AC: 03/24/2018 Tertiary NOT GIVENUNK Nga Insurance:SELF PAY [facility] Number: Effective Repository Date:2018-03-24 01/03/2018 Lilly Biggs Primary Lilly Biggs Nga [id number] Insurance:MEDICARE WaldronDOB: [facility] [place] PART A [facility] [id number] Number: Repository [id number]: 330 [id number] [phone] (HP) Date:2018-01-03 01/03/2018 Secondary Lilly Biggs [place] Insurance:MUTUAL OF WaldronDOB: Critical access hospital Number: [id number] Hospital [id number] Repository Date:7442-96-80XPSYAZ OF [facility], [place] [address]II: 01/03/2018 Tertiary NOT GIVENUNK [place] Insurance:SELF PAY [facility] Number: Effective Repository Date:2018-01-03 08/17/2017 Lilly Biggs Primary Lilly Biggs [place] [id number] Insurance:MEDICARE WaldronDOB: Community [place] PART A [facility] [id number] Number: Repository [id number]: [phone] [id number] [phone] (HP) Date:2017-08-17 08/17/2017 Secondary Lilly Biggs [place] Insurance:MUTUAL OF WaldronDOB: Critical access hospital Number: [id number] Hospital [id number] Repository Date:9221-70-77QAKKMR [place] [address] [address]TO: 08/17/2017 Tertiary NOT GIVENUNK [place] Insurance:SELF PAY [facility] Number: Effective Repository Date:2017-08-17
== END ==
PROVIDERS: Family Provider Family Medicine; PCP Family Medicine; Referring Provider Internal Medicine Rheumatology; Visit Provider Internal Medicine Rheumatology
DX: M06.4 Inflammatory polyarthropathy (principal); Z79.899 Other long term (current) drug therapy; M15.9 Polyosteoarthritis, unspecified; M18.0 Bilateral primary osteoarthritis of first carpometacarpal joints; M17.0 Bilateral primary osteoarthritis of knee; L64.8 Other androgenic alopecia; F41.9 Anxiety disorder, unspecified; F32.89 Other specified depressive episodes
CPT/HCPCS: 36415; 80053; 85025

== ENCOUNTER 2018-05-28 13:27 | Observation (INO) | payer MEDICARE, OTHER, SELFPAY ==
[2018-05-28 13:29] VITALS: BP 186/87; PULSE 92; RESP 16; TEMP 36.7; O2SAT 95; BMI 28.3
--- NOTE | 2018-05-28 13:47 | ED.VISSUMM ---
- ER Visit Summary Date of Service: 05/28/18 Chief Complaint: [] Rash to both arms for days noncompliant with medications, depression intermittent thoughts of suicide History of Present Illness: The patient is a 78 F [] lives alone at home, she was brought in by her daughter who lives in [place] was visiting for the holidays the daughter reports the patient has had a rash to the left greater than right arm for days it is quite itchy and pruritic etiology of the rash is unclear there is been no exposures no medications nose insect bites etc. the patient has not been taking any of her medications including medications for her arthritis and her depression the daughter reports the mother is more depressed than her baseline and is not sure if that is because she been out of her medications or her condition has deteriorated in addition the patient intermittently talks the daughter about suicide but the patient currently denies being suicidal, daughter is here until the Tuesday after Tammy basically indicates the mother has been doing at baseline at home Diabetes hypertension depression rheumatoid arthritis bilateral knee replacement Physical Examination: [] 186/87, afebrile General, no distress resting comfortably HEENT is generally unremarkable The neck is supple no adenopathy Cardiovascular, regular rate and rhythm Lungs, clear bilateral Abdomen, soft nontender Extremities, there are scattered abrasions and dennis very superficial to the left forearm with indurated skin up to the mid proximal forearm, there is a circular type.over the palm of the left hand hand function is intact some joint deformity no signs of joint infection no wrist infection full range of motion the elbow is not involved, the right upper extremity very similar findings except the redness extends to the mid forearm, there is no petechia purpura skin breakdown no fluctuance no crepitance Neurologic, awake alert answering questions appropriately moving all 4 extremities, she is awake alert slow to respond answering questions appropriately again admits that she has had thoughts of suicide but has no active plan Test Results: [] Daughter reports the patient is far she can tell has been doing her baseline at home we will obtain screening labs the etiology of the pruritic rash is unclear but certainly present allergic reaction possible secondary infection is no history of MRSA infection, and as far as the daughter knows all of her other health conditions including her diabetes have been stable Emergency Department Course and Treatment: [] His white count is 19,000 the chemistry panels generally unremarkable glucose above 400 see those reports,, x-rays to the hands and forearms to my review showed nothing acute, given her diabetes given the white count given the potential for infection cellulitis I have asked the hospitalist see the patient for further management, IV fluids IV antibiotics given discussed with the daughter, we have had social service to see the patient related to her depression lack of compliance and intermittent suicidal ideation they will review all that to see if any urgent mental health evaluation is necessary. Treatment Plan: [] Disposition: [] Admit stable Impression: [] Cellulitis infection involving left greater than right upper extremity, diabetes mellitus, depression with intermittent thoughts of suicide, noncompliance, history of rheumatoid arthritis This note was generated with [employer] dictation software. It may contain incorrect words, spelling, and punctuation that were not noted in review of the chart prior to signing ED Disposition - Plan for ED Patient: Chief Complaint: Depression Referrals: Edvin Buckley MD [Primary Care Provider] -
--- NOTE | 2018-05-28 13:50 | RAD_ITS ---
STUDY: X-RAY - LEFT HAND REASON FOR EXAM: Female, 78 years old. Left hand pain and swelling TECHNIQUE: 3 view(s) of the hand. COMPARISON: None. FINDINGS: No acute fracture or dislocation. Age-related degenerative changes, most severe at the first carpometacarpal joint. Soft tissue swelling diffusely. RAD/Hand Min 3 Views IMPRESSION: As above Electronically Signed: Magdaleno Correia DO at 15:20 EST Tel , Service support ,
[2018-05-28 14:24] LABS: Erythrocyte Sedimentation Rate 17 mm/hr (0-30)
[2018-05-28 14:26] LABS: Absolute Lymphocyte Count 0.76 X10^3/ul (0.83-4.51); Absolute Neutrophil Count 17.8 X10^3/uL (2.0-7.7); Basophil# 0.01 X10^3/uL; Basophil% 0.1 % (0-1); Eosinophil# 0.01 X10^3/uL; Eosinophils% 0.1 % (0-5); Hematocrit 44.8 % (37-47); Hemoglobin 15.3 g/dl (12.0-15.0); Lymphocyte # 0.76 X10^3/ul (4.0); Lymphocyte % 4.1 % (19-41); Mean Corp Hgb Conc 34.2 g/gl (32-36); Mean Corpuscular Hgb 29.1 pg (27.0-32.0); Mean Corpuscular Volume 85.2 fL (81-99); Mean Platelet Vol. 9.6 fl (6.2-12.0); Monocyte# 0.09 X10^3/uL; Monocyte% 0.5 % (0-10); Neutrophil # 17.81 X10^3/uL (2.7-7.7); Platelet Count 373 K/mm3 (150-450); RBC Distribution Width CV 13.2 % (11.6-14.6); RBC Distribution Width SD 40.9 fl (35.1-43.9); Red Blood Count 5.26 M/mm3 (4.2-5.4); White Blood Count 18.7 K/mm3 (4.4-11.0)
[2018-05-28 14:27] LABS: POSITIVE COUNT NO; POSITIVE DIFFERENTIAL NO; POSITIVE MORPHOLOGY NO
--- NOTE | 2018-05-28 14:30 | RAD_ITS ---
STUDY: X-RAY - RIGHT RADIUS AND ULNA REASON FOR EXAM: Female, 78 years old. Redness and swelling TECHNIQUE: 2 view(s) of the forearm. COMPARISON: None. FINDINGS: Subcutaneous swelling Normal visualized radius. Normal visualized ulna. RAD/Forearm 2 Views IMPRESSION: No acute osseous findings. Likely cellulitis. Electronically Signed: Magdaleno Correia DO at 15:18 EST Tel , Service support ,
--- NOTE | 2018-05-28 14:30 | RAD_ITS ---
STUDY: X-RAY - RIGHT HAND REASON FOR EXAM: Female, 78 years old. Right hand redness and swelling TECHNIQUE: 3 view(s) of the hand. COMPARISON: None. FINDINGS: No acute fracture or dislocation. Moderate to severe age-related degenerative changes. Degenerative change is significant at the first carpometacarpal joint. Soft tissue swelling. RAD/Hand Min 3 Views IMPRESSION: As above Electronically Signed: Magdaleno Correia DO at 15:19 EST Tel , Service support ,
--- NOTE | 2018-05-28 14:30 | RAD_ITS ---
STUDY: X-RAY - LEFT RADIUS AND ULNA REASON FOR EXAM: Female, 78 years old. Redness and swelling TECHNIQUE: 2 view(s) of the forearm. COMPARISON: None. FINDINGS: Subcutaneous swelling Normal visualized radius. Normal visualized ulna. RAD/Forearm 2 Views IMPRESSION: Subcutaneous swelling, likely cellulitis. No acute osseous findings Electronically Signed: Magdaleno Correia DO at 15:19 EST Tel , Service support ,
[2018-05-28 14:34] LABS: Anion Gap 10 (5-15); BUN 20 mg/dL (7-18); BUN/Creat Ratio 23.1 RATIO (10-20); Calcium,Total 9.3 mg/dL (8.5-10.1); Chloride 100 mmol/L (98-107); Creatinine, Serum 0.86 mg/dL (0.55-1.02); EST Glomerular Filtration Rate 68 mL/min (>60); Est Glom Filt Rate - Afr Amer 82 mL/min (>60); Estimated Creatinine Clearance 50.08 ml/min; Glucose 396 mg/dL (74-106); Potassium 4.5 mmol/L (3.5-5.1); Sodium Level 136 mmol/L (136-145)
--- NOTE | 2018-05-28 15:08 | CM.ED ---
Social Work Assessment Referral Date: 05/28/18 Date of Assessment: 05/28/18 Reason for Consult: Depression Informant: ELSY Monaco Information obtained from: Medical record, pt and pt's daughter, Patricia. Upon entering room pt is sitting upright in bed smiling and willing to participate in assessment. Pt is A&Ox4. Living Arrangements: Lives alone in a one-story home with 3 KATHI and a handrail. Denies access issues, and does not use DME. Pt does have a finished basement, but all necessities are on the first floor. Transportation: Pt is able to drive, and owns her own vehicle. Denies transportation concerns. Financial/Employment: Pt is retired and reports to have stable finances. No concerns with ability to obtain necessities. Supports: Daughter, Patricia. Despite having her daughter Patricia the pt does report feeling as though she has limited supports. Engage pt in strengths perspective and identify her daughter who is present, as well as her counselor and a friend she identified as positive supports in her life that care for her. Social/Family Stressors: Pt denies any specific events, and just states that her depression can get her feeling sad at times. Mental Health Hx: Pt does report a hx of depression. She sees Dr. Overton at [facility]. States that she had an appointment this week, and believes she has one next week. Unable to confirm date. Pt is agreeable to SW on Tuesday calling to confirm an appointment, and if there is not one, allowing the SW to schedule one ROB. She does take Cymbalta as prescribed by her PCP Dr. Buckley. Pt did trigger a mental health consult upon initial triage as she expressed SI. Upon further assessment gathered that the pt is not presently experiencing SI. She states she last experienced this a few days ago, and does not experience it often. It is triggered by depression and she is unable to confirm any specific triggers. She does not have any plan of how she would accomplish, and cannot verify that she wants to kill herself or just harm herself. Explained the difference and the pt states again that she would not. Pt denies any hx of suicidal plan, intent or attempt in the past. She identifies protective factors as her synagogue ([employer]ism) and the fact that SI and completion of suicide are sins, as well as her daughter, Patricia. Risk factor present is the pt's depression. Coping skills for dealing with depression are putting something fun on TV that I like, like dancing or music. She also states that she calls Patricia as a support. Substance Use Hx: Pt reports a rare use of alcohol. No other substances reported and no concern of substance abuse present at this time. Intervention(s) Suicide Risk Assessment Complete, and determined that pt is not suicidal at this time. Recommend that sitter be removed. Initial assessment for admission complete. Placed call to [facility] (closed on Monday 05/28) and left a to establish an appointment on Tuesday 05/29. [facility] [phone]. Suicide Prevention Number and Crisis number provided. ASSESSMENT: Pt is a 78 female that presents to the ED with an allergic reaction and expresses SI during triage. Pt lives alone in a one-story house with 3 KATHI. Denies access issues or use of DME. Pt is independent with ADLs and still drives. Her PCP is Dr. Buckley, and she also follows Dr. Marie for arthritis. She is presently using [facility], but she and her daughter would like to switch her to [facility]. Made them both aware of [facility] is needed at discharge. Upon assessment of suicide risk, determined that the pt is not presently at risk and encouraged her to follow-up with her counselor, Dr. Overton, as soon as possible, which pt is agreeable to. Discussed with ED Physician and recommended the removal of the sitter as this protocol is not necessary at this time. Pt and Patricia made aware that SW is available throughout their stay. PLAN: Follow-up with Dr. Overton upon discharge from [facility]. Harini Arrington, PUMP ATTENDANT, CHERIE
--- NOTE | 2018-05-28 15:36 | PCM.HP.STD ---
Problem List (1) Rheumatoid arthritis Status: Chronic (2) Diabetes mellitus type 2 in nonobese Status: Chronic (3) Depression Status: Acute (4) Cellulitis of both forearms Status: Acute (5) Benign essential hypertension Status: Chronic (6) Hyperlipidemia Status: Chronic History of Present Illness Date of Admission: 05/28/18 Chief Complaint: Rash to both hands and forearm for 3 days The patient is a 78 year old F with history of dementia, depression and rheumatoid arthritis, recently saw transit specialist, Dr. Ospina posterior was referred to ER from urgent care for rash in both forearms and hands. Patient has history of depression but she denies suicidal ideation, attempt recently although she had suicidal attempt long time ago but she does not remember. She has a redness, itching on the left forearm greater than right forearm and hand that is started today after she woke up. She denies fever or chills. She denies any known contact of allergic irritants like lotion, bushes or shrubs or chemicals or to continues on medication. She saw her adult high school instructor on 05/23 and was given prescription for folic acid and methotrexate but methotrexate was canceled as per the daughter. [] Past Medical History Past Medical History (Chronic Problems): Chronic Problems Rheumatoid arthritis (Chronic) Diabetes mellitus type 2 in nonobese (Chronic) Hyperlipidemia (Chronic) Benign essential hypertension (Chronic) Allergies codeine Allergy (Verified 05/28/18 13:28) Vomiting Home Medications: Ambulatory Orders Medication Instructions Recorded Atenolol [Tenormin (beta miki)] 1 tab PO DAILY 05/28/18 Duloxetine HCl 90 mg PO DAILY 05/28/18 Nabumetone 1 tab PO DAILY 05/28/18 Surgical History: cholecystectomy, total knee arthroplasty Smoking Status: Never smoker - *Family History Paternal History Items: No pertinent history Review of Systems Constitutional: Denies: Chills, Fever, Weight Change HEENT: Denies: Head Aches, Sinus Congestion, Sinus Drainage Cardiovascular: Denies: Chest Pain, Palpitations Respiratory: Denies: Cough, Shortness of breath at rest, Sputum production Gastrointestinal: Denies: Abdominal Pain, Nausea, Vomiting Genitourinary: Denies: Dysuria Musculoskeletal: Reports: Hand Pain, Joint Pain - Rheumatoid arthritis. Denies: Joint Tenderness Skin: Reports: Rash - Maculopapular rash in both hand and hand Reddish dots like petechia and ecchymosis and pulmonary aspect of hand. Telltale sign of itching.. Denies: Wounds Neurological: Denies: Numbness, Tingling, Focal weakness Psychiatric: Reports: Anxiety, Depression. Denies: Homicidal Ideations, Suicidal Ideations Hematologic/ Lymphatic: Denies: Easy Bruising, Easy Bleeding VTE Information - Inpt Only VTE Present on Admission: No VTE Mechan Device Prophylaxis: None VTE Pharm Prophylaxis ordered?: Yes Patient Problems: Active and Suspected Problems Depression (Acute) Cellulitis of both forearms (Acute) - Physical Exam General: Alert, Oriented x3, Cooperative HEENT: Atraumatic, PERRLA, EOMI, Normocephalic Oral: No Gingival or Mucosal Lesions/ Ulcerations, - - No oropharyngeal mucosal redness or ulcer Neck: Supple, No JVD, Negative Carotid Bruits Lungs: Clear to auscultation, Normal air movement, No rhonchi, No wheeze Cardiovascular: Regular rate, Regular Rhythm, Normal S1, Normal S2, No murmurs Abdomen: Bowel Sounds Present, Soft, Non Tender, Non-Distended Extremities: No edema, Capillary Refill Less than 3 Seconds Skin: Rash Present - Maculopapular rash in both hand and hand Reddish dots like petechia and ecchymosis and pulmonary aspect of hand. Telltale sign of itching. Musculoskeletal: No Tenderness to Palpation of Joints or Extremities, Arthritic Changes - Chronic deformity of hand at the MCP and PIP joints of rheumatoid arthritis, Muscle Wasting - Hand muscle wasting Neurological: Cranial nerves II-XII grossly intact, Deep Tendon Reflexes 2+/4 and Symmetrical, Neuro grossly intact Psych/Mental Status: Normal Affect, Appropriate Vital Signs Temp Pulse Resp BP Pulse Ox 98.1 F 92 16 186/87 H 95 05/28/18 13:29 05/28/18 13:29 05/28/18 13:29 05/28/18 13:29 05/28/18 13:29 Oxygen Delivery Method Room Air Weight: 170 lb Body Mass Index (BMI) 28.3 Laboratory Tests Past 24 Hrs 05/28/18 05/28/18 14:05 14:05 WBC 18.7 H RBC 5.26 Hgb 15.3 H Hct 44.8 MCV 85.2 MCH 29.1 MCHC 34.2 RDW 13.2 RDW Differential 40.9 Plt Count 373 MPV 9.6 Immature Gran % (Auto) 0.200 Neut % (Auto) 95.0 H Lymph % (Auto) 4.1 L Burleigh % (Auto) 0.5 Eos % (Auto) 0.1 Baso % (Auto) 0.1 Absolute Neuts (auto) 17.8 H Absolute Lymphs (auto) 0.76 L Total Counted Not Reportable ESR 17 Sodium 136 Potassium 4.5 Chloride 100 Carbon Dioxide 26.0 Anion Gap 10 BUN 20 H Creatinine 0.86 Estim Creat Clear Calc 50.08 Est GFR (MDRD) Af Amer 82 Est GFR (MDRD) Non-Af 68 BUN/Creatinine Ratio 23.1 H Glucose 396 H Calcium 9.3 C-React Prot Ext Range 46.20 H Assessment/Plan All Active Problems Depression (Acute) Cellulitis of both forearms (Acute) The patient is a 78 year old F with history of dementia, depression and rheumatoid arthritis, recently saw transit specialist, Dr. Ospina posterior was referred to ER from urgent care for rash in both forearms and hands. Patient has history of depression but she denies suicidal ideation, attempt recently although she had suicidal attempt long time ago but she does not remember. She has a redness, itching on the left forearm greater than right forearm and hand that is started today after she woke up. She denies fever or chills. She denies any known contact of allergic irritants like lotion, bushes or shrubs or chemicals or to continues on medication. She saw her adult high school instructor on 05/23 and was given prescription for folic acid and methotrexate but methotrexate was canceled as per the daughter. Patient denies any previous history of allergic reaction. In ED, no fever was noticed. Blood pressure 186/87. Basic labs in ED shows leukocytosis left shift. CRP 46.2. 1. Bilateral forearm/hand cellulitis with leukocytosis or possibility of allergic reaction, precipitant unclear: Patient is being admitted on regular MedSurg floor. All the platelet count is normal there is possibility of possible qualitative defect of platelet but she denies any previous history of easy bruisability or bleeding. Started on IV cefazolin. MRSA nasal screen. LFT ordered. There is no open ulcer. Flu test ordered. Monitor CBC. X-rays of both forearm and hand does not show acute osseous abnormality. 2. Diabetes mellitus type 2 with hyperglycemia: Since patient is noncompliant. Accu-Chek before meals and at bedtime and cover with NovoLog sliding scale. 3. Hypertension: Blood pressures I: Started on lisinopril 10 mg daily. Continue atenolol. 4. Anxiety and depression: As mentioned above patient denies suicidal ideations or recent suicidal attempt. continuous improvement manager consult for mental health professional evaluation. 5. Rheumatoid arthritis with deformity of both hands at the MCP and PIP joints. Continue folic acid. Reason for consultation of methotrexate prescription is not clear. Follow-up transit specialist as an outpatient. 6. DVT prophylaxis: On Lovenox 40 minutes subcu daily. Discontinue if platelet count drops less than 70,000 or hemoglobin less than 8 g%. This note was generated with [employer] dictation software. Every effort was made to ensure accuracy, however computerized cataloging assistant mistakes may persist. Laboratory Results 05/28/18 14:05: WBC 18.7 H, RBC 5.26, Hgb 15.3 H, Hct 44.8, MCV 85.2, MCH 29.1, MCHC 34.2, RDW 13.2, RDW Differential 40.9, Plt Count 373, MPV 9.6, Immature Gran % (Auto) 0.200, Neut % (Auto) 95.0 H, Lymph % (Auto) 4.1 L, Burleigh % (Auto) 0.5, Eos % (Auto) 0.1, Baso % (Auto) 0.1, Absolute Neuts (auto) 17.8 H, Absolute Lymphs (auto) 0.76 L, Total Counted Not Reportable, ESR 17 05/28/18 14:05: Sodium 136, Potassium 4.5, Chloride 100, Carbon Dioxide 26.0, Anion Gap 10, BUN 20 H, Creatinine 0.86, Estim Creat Clear Calc 50.08, Est GFR (MDRD) Af Amer 82, Est GFR (MDRD) Non-Af 68, BUN/Creatinine Ratio 23.1 H, Glucose 396 H, Calcium 9.3, C-React Prot Ext Range 46.20 H Code Visit OBSV E&M: [id number] Initial observation care L3
--- NOTE | 2018-05-28 15:42 | CM.ED ---
Social Work Note Advanced directives not on file, pt and pt's daughter, Patricia, made aware to bring in to [facility]. Daughter, Patricia, states she is HCPOA. GIN Londono, CHERIE
[2018-05-28 16:32] VITALS: BMI 29.1; BMI 29.2
[2018-05-28 17:11] LABS: Hemoglobin A1c 9.7 % (4.2-6.3)
[2018-05-28] MEDS: 0.9% Normal Saline 1,000 ML 100 ML IV (17:15)
[2018-05-28 17:21] LABS: AST(SGOT) 28 U/L (15-37); Alanine Aminotransfer ALT/SGPT 55 U/L (13-56); Alkaline Phosphatase 117 U/L (45-117); Bilirubin, Direct 0.17 mg/dL (0.00-0.30); Globulin 3.7 g/dL (2.2-4.2); Protein, Total 7.7 g/dL (6.4-8.2)
[2018-05-28] MEDS: Insulin Lispro 100 UNIT/ML INSULN.PEN SQ ×2 (17:23→22:14)
[2018-05-28] MEDS: Enoxaparin 40 MG/0.4 ML Syringe SC (17:24)
--- NOTE | 2018-05-28 17:29 | NURSING ---
discussed 's order for mental health/crisis order with Sabina SOLANO. Aware she has seen pt and not to call crisis at this time, aware social media analyst to address mental health consult/ pt's own mental health worker tomorrow.
[2018-05-28 17:51] LABS: Bedside Glucose 411 mg/dL (70-110)
--- NOTE | 2018-05-28 18:11 | NURSING ---
information/ pharmacy monograph- on the new medications that were initiated this shift were provided by this RN to patient and POC daughter
--- NOTE | 2018-05-28 19:28 | NURSING ---
Pt. up out of bed- pulled IV out and was bleeding. Pt very scared- emotional support provided. Only IV med at this time is NS- Dr. Dutton notified and asked if ok to leave out- notified ok to do same.
[2018-05-28 19:34] LABS: Mucous, Urine 0 SEEN /hpf (<or=2+); Red Blood Cells-Urine 0 SEEN /hpf (0-5); White Blood Cells 0 SEEN /hpf (0-5)
[2018-05-28 19:38] LABS: Color, Urine Yellow (Yellow); Glucose, Dipstick 1000 mg/dl (Normal); Ketone-Dipstick Negative (Negative); Leukocyte Esterase-Dipstick Negative /ul (Negative); Nitrite-Dipstick Negative (Negative); Occult Blood-Urine 25 /ul (Negative); Protein-Dipstick Negative (Negative); Urine Bilirubin Dipstick Negative (Negative); Urine Clarity Clear (Clear); Urine Urobilinogen Normal (Normal)
[2018-05-28 19:44] LABS: Bacteria 1+ /hpf (None Seen); Squamous Epithelial Cells - UA 0-5 SEEN /hpf (5-10)
[2018-05-28 21:32] VITALS: BP 167/83; PULSE 75; RESP 18; TEMP 36.8; O2SAT 94
[2018-05-28 22:05] LABS: Bedside Glucose 321 mg/dL (70-110)
[2018-05-28 22:30] VITALS: O2SAT 94
[2018-05-29 02:23] VITALS: BP 169/87; PULSE 73; RESP 16; TEMP 36.5; O2SAT 97
[2018-05-29] MEDS: DiphenhydrAMINE 25 MG Capsule PO ×2 (02:30→09:44)
[2018-05-29 06:15] LABS: Absolute Lymphocyte Count 1.64 X10^3/ul (0.83-4.51); Absolute Neutrophil Count 13.1 X10^3/uL (2.0-7.7); Basophil# 0.02 X10^3/uL; Basophil% 0.1 % (0-1); Eosinophil# 0.01 X10^3/uL; Eosinophils% 0.1 % (0-5); Hematocrit 39.1 % (37-47); Lymphocyte # 1.64 X10^3/ul (4.0); Lymphocyte % 10.4 % (19-41); Mean Corp Hgb Conc 33.2 g/gl (32-36); Mean Corpuscular Hgb 28.8 pg (27.0-32.0); Mean Corpuscular Volume 86.5 fL (81-99); Mean Platelet Vol. 9.9 fl (6.2-12.0); Monocyte# 0.94 X10^3/uL; Monocyte% 5.9 % (0-10); Neutrophil # 13.14 X10^3/uL (2.7-7.7); Neutrophil % 83.2 % (47-70); Platelet Count 344 K/mm3 (150-450); RBC Distribution Width CV 13.2 % (11.6-14.6); RBC Distribution Width SD 40.5 fl (35.1-43.9); Red Blood Count 4.52 M/mm3 (4.2-5.4); White Blood Count 15.8 K/mm3 (4.4-11.0)
[2018-05-29 06:28] LABS: POSITIVE COUNT NO; POSITIVE DIFFERENTIAL NO; POSITIVE MORPHOLOGY NO
[2018-05-29 06:29] LABS: Anion Gap 9 (5-15); BUN 19 mg/dL (7-18); BUN/Creat Ratio 34.7 RATIO (10-20); Calcium,Total 8.8 mg/dL (8.5-10.1); Chloride 105 mmol/L (98-107); Creatinine, Serum 0.55 mg/dL (0.55-1.02); EST Glomerular Filtration Rate 115 mL/min (>60); Est Glom Filt Rate - Afr Amer 139 mL/min (>60); Estimated Creatinine Clearance 41.33 ml/min; Glucose 214 mg/dL (74-106); Potassium 3.5 mmol/L (3.5-5.1); Sodium Level 141 mmol/L (136-145)
[2018-05-29 06:50] LABS: Bedside Glucose 186 mg/dL (70-110)
[2018-05-29] MEDS: Insulin Lispro 100 UNIT/ML INSULN.PEN SQ ×2 (06:53→11:23)
[2018-05-29] MEDS: predniSONE 20 MG Tablet 40 MG PO (07:58)
[2018-05-29 08:00] VITALS: RESP 18
[2018-05-29 08:30] VITALS: BP 181/94; PULSE 66; RESP 18; TEMP 37.2; O2SAT 98
--- NOTE | 2018-05-29 09:08 | CASEMGMT ---
Social Work Note SW attempted to call [facility] to confirm pt's appointments. SW left message. SW waiting for call back. Jacinda Atkinson FORMAL WAITER/WAITRESS, PRESS MANAGER
--- NOTE | 2018-05-29 09:29 | DCINST_ITS ---
- Discharge Diagnoses Current Active Problems: Current Active and Chronic Problems Rheumatoid arthritis (Chronic) Diabetes mellitus type 2 in nonobese (Chronic) Depression (Acute) Cellulitis of both forearms (Acute) You will use the following diet at home:: Calorie/Carbohydrate Controlled (specify 1200, 1400, etc) Your food should be the consistency of: Regular Your liquids should be the consistency of: Regular/Thin Discharge Activity: Return to Normal Activity Call your doctor if you observe: Fever of 101 or Higher, Coldness, Increased Pain, Inability to urinate, Shortness of breath, Dizziness, Fainting spells Additional Instructions: Continue the Insulin at night until the 10 day steroid course is finished Allergies/Adverse Reactions: Allergies codeine Allergy (Verified 05/28/18 13:28) Vomiting Medications to take at Discharge Atenolol [Tenormin (beta miki)] 1 tab PO DAILY PRN PRN 05/28/18 Cyanocobalamin (Vitamin B-12) [B-12] 1,000 mcg PO DAILY 05/28/18 Duloxetine HCl 90 mg PO DAILY 05/28/18 Nabumetone 1 tab PO DAILY 05/28/18 Insulin Glargine [Lantus SoloStar Pen] 15 units SC QHS #1 pen 05/29/18 predniSONE tablet 10 mg PO DAILY #0 05/29/18 predniSONE tablet 40 mg PO DAILY@0800 #20 tablet 05/29/18 The following prescriptions were given: Insulin Glargine [Lantus SoloStar Pen] 15 units SC QHS #1 pen predniSONE tablet 40 mg PO DAILY@0800 #20 tablet Primary Care Physician: Edvin Buckley MD [Primary Care Provider] - Please follow up with your Primary Care Physician in: 3-5 days Test Results: Test results from this visit will be discussed in further detail at your follow- up appointment, if applicable.
--- NOTE | 2018-05-29 09:48 | DS.PCM_ITS ---
Discharge Date and Diagnosis - Problem List Patient Problems: Active and Suspected Problems Depression (Acute) Cellulitis of both forearms (Acute) Date of Admission: 05/28/18 Date of Discharge: 05/29/18 - Primary Discharge Diagnosis Active and Suspected Problems Depression (Acute) Cellulitis of both forearms (Acute) - Secondary Discharge Diagnosis Chronic Problems Rheumatoid arthritis (Chronic) Diabetes mellitus type 2 in nonobese (Chronic) Hyperlipidemia (Chronic) Benign essential hypertension (Chronic) Hospital Course and Treatment Imaging Results: B/l Hand and Forearm Xray: Negative for fracture but subcutaneous swelling evident Consults: None Operations: None Procedures: None Summary of Care Provided: Per HPI: The patient is a 78 year old F with history of dementia, depression and rheumatoid arthritis, recently saw corporate giving manager, Dr. Ospina posterior was referred to ER from urgent care for rash in both forearms and hands. Patient has history of depression but she denies suicidal ideation, attempt recently although she had suicidal attempt long time ago but she does not remember. She has a redness, itching on the left forearm greater than right forearm and hand that is started today after she woke up. She denies fever or chills. She denies any known contact of allergic irritants like lotion, bushes or shrubs or chemicals or to continues on medication. She saw her maintenance dispatcher on 05/23 and was given prescription for folic acid and methotrexate but methotrexate was canceled as per the daughter. Vital Signs - 24 hr Temp Pulse Resp BP Pulse Ox 05/29/18 02:23 97.7 F L 73 16 169/87 H 97 05/28/18 22:30 94 05/28/18 21:32 98.2 F 75 18 167/83 H 94 05/28/18 13:29 98.1 F 92 16 186/87 H 95 General: Alert, Oriented x3, Cooperative, No apparent distress HEENT: Atraumatic, EOMI, Normocephalic Oral: Moist Mucosa Neck: Supple, No JVD Lungs: Clear to auscultation, Normal air movement, No rhonchi, No wheeze, No ra les Cardiovascular: Regular rate, Regular Rhythm, Normal S1, Normal S2, No murmurs Abdomen: Soft, Non Tender, Non-Distended, No Hepato-splenomegaly Extremities: No edema, Capillary Refill Less than 3 Seconds Skin: Redness is much improved and there are areas of skin excoriations from scratching. There are red patches in her scalp as well Musculoskeletal: No Tenderness to Palpation of Joints or Extremities, b/l hand joint destruction Neurological: Motor Exam 5/5 strength throughout, Sensory exam intact to light touch and pain Psych/Mental Status: Normal Affect, Appropriate, No SI/HI Hospital Course: 1. Dermatitis/Rheumatoid Arthritis/DM2 - She presented with a 1 day h/o skin redness, swelling and itching. Today per the patient and the daughter, the redness has almost completely resolved, as has the swelling. She had only received 1 dose of vancomycin, and zosyn. Her leukocytosis was elevated because she had been taking her prednisone prior to admission. She remains afebrile and the remaining areas of erythema are patchy and appear to be a dermatitis rather than an infection. The rapidity of the resolution seems to be more likely an allergic dermatitis rather than an infection, her ESR was normal on admission but her CRP was elevated to 46. She would like to go home and her daughter agrees with taking her mom home. I explained the risks of going home vs staying and they would still like to go home. Of note, the daughter states that her mom is a diabetic controlled by diet, however, her A1c is 10. During her stay, her BG was elevated to >400 secondary to the steroids. Since she will be discharged on steroids, she will also be discharged on Lantus 15 U qHS during her steroid course only. She is to f/u with her PCP in 3-5 days and will likely need to be started on metformin and a long acting insulin. 2. Dementia/Depression - There is a mental health consult secondary to a h/o remote suicidal attempt, and there is documented SI on admission though the patient denies this to the admitting Hospitalist and myself. She is on cymbalta which will also be continued. 3. HTN - On admission her SBP was elevated to >180, She has since returned to the 160's. I am unsure of her baseline, but she would benefit from an HEMALATHA-I. Will DC on lisinopril 5 mg daily. 4. Her other diagnoses were evaluated and her home medications were continued where appropriate Patient Problems: Active and Suspected Problems Depression (Acute) Cellulitis of both forearms (Acute) - Physical Exam Vital Signs Temp Pulse Resp BP Pulse Ox 97.7 F L 73 16 169/87 H 97 05/29/18 02:23 05/29/18 02:23 05/29/18 02:23 05/29/18 02:23 05/29/18 02:23 Oxygen Delivery Method Room Air Weight: 175 lb 0.752 oz Body Mass Index (BMI) 29.1 Intake and Output for Last 24 Hours 05/27/18 05/28/18 05/29/18 23:59 23:59 23:59 Intake Total 120 / 120 Output Total 300 / 300 Balance -180 / -180 Laboratory Tests Past 24 Hrs 05/28/18 05/28/18 05/28/18 14:05 14:05 14:05 WBC 18.7 H RBC 5.26 Hgb 15.3 H Hct 44.8 MCV 85.2 MCH 29.1 MCHC 34.2 RDW 13.2 RDW Differential 40.9 Plt Count 373 MPV 9.6 Immature Gran % (Auto) 0.200 Neut % (Auto) 95.0 H Lymph % (Auto) 4.1 L [place] % (Auto) 0.5 Eos % (Auto) 0.1 Baso % (Auto) 0.1 Absolute Neuts (auto) 17.8 H Absolute Lymphs (auto) 0.76 L Total Counted Not Reportable ESR 17 Sodium 136 Potassium 4.5 Chloride 100 Carbon Dioxide 26.0 Anion Gap 10 BUN 20 H Creatinine 0.86 Estim Creat Clear Calc 50.08 Est GFR (MDRD) Af Amer 82 Est GFR (MDRD) Non-Af 68 BUN/Creatinine Ratio 23.1 H Glucose 396 H Hemoglobin A1c Calcium 9.3 Total Bilirubin 0.70 Direct Bilirubin 0.17 AST 28 ALT 55 Alkaline Phosphatase 117 C-React Prot Ext Range 46.20 H Total Protein 7.7 Albumin 4.0 Globulin 3.7 Urine Color Urine Clarity Urine pH Ur Specific [place] Urine Protein Urine Glucose (UA) Urine Ketones Urine Occult Blood Urine Nitrite Urine Bilirubin Urine Urobilinogen Ur Leukocyte Esterase Urine RBC Urine WBC Ur Squamous Epith Cells Urine Bacteria Urine Mucus 05/28/18 05/28/18 05/29/18 14:05 17:50 05:50 WBC 15.8 H RBC 4.52 Hgb 13.0 Hct 39.1 MCV 86.5 MCH 28.8 MCHC 33.2 RDW 13.2 RDW Differential 40.5 Plt Count 344 MPV 9.9 Immature Gran % (Auto) 0.300 Neut % (Auto) 83.2 H Lymph % (Auto) 10.4 L [place] % (Auto) 5.9 Eos % (Auto) 0.1 Baso % (Auto) 0.1 Absolute Neuts (auto) 13.1 H Absolute Lymphs (auto) 1.64 Total Counted Not Reportable ESR Sodium Potassium Chloride Carbon Dioxide Anion Gap BUN Creatinine Estim Creat Clear Calc Est GFR (MDRD) Af Amer Est GFR (MDRD) Non-Af BUN/Creatinine Ratio Glucose Hemoglobin A1c 9.7 H Calcium Total Bilirubin Direct Bilirubin AST ALT Alkaline Phosphatase C-React Prot Ext Range Total Protein Albumin Globulin Urine Color Yellow Urine Clarity Clear Urine pH 5.0 Ur Specific [place] 1.010 Urine Protein Negative Urine Glucose (UA) 1000 H Urine Ketones Negative Urine Occult Blood 25 H Urine Nitrite Negative Urine Bilirubin Negative Urine Urobilinogen Normal Ur Leukocyte Esterase Negative Urine RBC 0 SEEN Urine WBC 0 SEEN Ur Squamous Epith Cells 0-5 SEEN Urine Bacteria 1+ Urine Mucus 0 SEEN 05/29/18 05/29/18 05:50 05:50 WBC RBC Hgb Hct MCV MCH MCHC RDW RDW Differential Plt Count MPV Immature Gran % (Auto) Neut % (Auto) Lymph % (Auto) [place] % (Auto) Eos % (Auto) Baso % (Auto) Absolute Neuts (auto) Absolute Lymphs (auto) Total Counted ESR Sodium 141 Potassium 3.5 Chloride 105 Carbon Dioxide 27.0 Anion Gap 9 BUN 19 H Creatinine 0.55 Estim Creat Clear Calc 41.33 Est GFR (MDRD) Af Amer 139 Est GFR (MDRD) Non-Af 115 BUN/Creatinine Ratio 34.7 H Glucose 214 H Hemoglobin A1c 10.0 H Calcium 8.8 Total Bilirubin Direct Bilirubin AST ALT Alkaline Phosphatase C-React Prot Ext Range Total Protein Albumin Globulin Urine Color Urine Clarity Urine pH Ur Specific [place] Urine Protein Urine Glucose (UA) Urine Ketones Urine Occult Blood Urine Nitrite Urine Bilirubin Urine Urobilinogen Ur Leukocyte Esterase Urine RBC Urine WBC Ur Squamous Epith Cells Urine Bacteria Urine Mucus POC Glucose 05/29/18 05/28/18 05/28/18 06:44 21:57 17:22 POC Glucose 186 H 321 H 411 H Discharge Activity: Return to Normal Activity Call your doctor if you observe: Fever of 101 or Higher, Coldness, Increased Pain, Inability to urinate, Shortness of breath, Dizziness, Fainting spells Home Medications: Medications to take at Discharge Atenolol [Tenormin (beta miki)] 1 tab PO DAILY PRN PRN 05/28/18 Cyanocobalamin (Vitamin B-12) [B-12] 1,000 mcg PO DAILY 05/28/18 Duloxetine HCl 90 mg PO DAILY 05/28/18 Nabumetone 1 tab PO DAILY 05/28/18 Insulin Glargine [Lantus SoloStar Pen] 15 units SC QHS #1 pen 05/29/18 Lisinopril 5 mg PO DAILY #30 tablet 05/29/18 predniSONE tablet 10 mg PO DAILY #0 05/29/18 predniSONE tablet 40 mg PO DAILY@0800 #20 tablet 05/29/18 Following Prescrptions Were Given to Patient: Insulin Glargine [Lantus SoloStar Pen] 15 units SC QHS #1 pen predniSONE tablet 40 mg PO DAILY@0800 #20 tablet Primary Care Physician: Edvin Buckley MD [Primary Care Provider] - Please follow up with your Primary Care Physician in: 3-5 days Disposition: Home Minutes spent on discharge:: 35 Patient Condition:: Good Medical Necessity - Tobacco Use Smoking Status: Never smoker Meaningful Use Info Meaningful Use Diagnoses (Choose all that apply): None applicable Code Visit Inpatient E&M: 07696 Disch Hosp
[2018-05-29] MEDS: Enoxaparin 40 MG/0.4 ML Syringe SC (11:02)
--- NOTE | 2018-05-29 11:33 | CASEMGMT ---
Social Work Note XIOMARA met with pt to discuss discharge planning. Pt's daughter present in room. Pt gave this worker permission to speak to her in front of her guest. SW provided pt with resources including [facility], private duty aides, and Assisted Livings. SW informed pt that this worker attempted to call [facility] today to confirm pt's appointment but SW hasn't received a call back. Pt's daughter states she believes pt has appointment June 09. SW encouraged pt and pt's daughter to follow up with [facility] to confirm pt's appointments. SW encouraged pt that if she feels depressed to reach out to her counselor and to utilize the resources that CHERIE Muhammad, provided to pt in the Emergency Room. Pt states understanding. Pt denied any needs or concerns at this time. Pt denied any current suicidal thoughts/plans/ideations. Plan: Pt to discharge home and resume counseling services at [facility] [employer]ING [employer], GARAGE DOOR OPENER INSTALLER
[2018-05-29 11:36] LABS: Bedside Glucose 446 mg/dL (70-110)
[2018-05-29 12:42] VITALS: BP 154/74; PULSE 74; RESP 18; TEMP 37; O2SAT 98
== END 2018-05-29 12:32 | disposition home or self-care (01) ==
LOC: ED 14:50 → MS3 15:38
PROVIDERS: Admitting Provider Internal Medicine; Emergency Provider Emergency Medicine; Family Provider Family Medicine; PCP Family Medicine; Visit Provider Family Medicine
DX: L03.114 Cellulitis of left upper limb (principal); L03.113 Cellulitis of right upper limb; F32.9 Major depressive disorder, single episode, unspecified; F41.9 Anxiety disorder, unspecified; Z79.899 Other long term (current) drug therapy; Z79.52 Long term (current) use of systemic steroids; R45.851 Suicidal ideations; I10 Essential (primary) hypertension; M06.9 Rheumatoid arthritis, unspecified; E11.65 Type 2 diabetes mellitus with hyperglycemia; Z91.19 Patient's noncompliance with other medical treatment and regimen; E78.5 Hyperlipidemia, unspecified; F03.90 Unspecified dementia, unspecified severity, without behavioral disturbance, psychotic disturbance, mood disturbance, and anxiety
CPT/HCPCS: 36415; 73090; 73130; 80048; 80076; 81001; 82962; 83036; 85025; 85652; 86140; 96361; 96365; 96372; 96375; 99218; 99284; J7030; J7040; J7050; A4216; G0378

== ENCOUNTER 2018-06-19 15:17 | Emergency (ER) | payer MEDICARE, OTHER, SELFPAY ==
[2018-05-28 16:32] VITALS: BMI 29.1
[2018-06-19 15:18] VITALS: BP 168/79; PULSE 89; RESP 16; TEMP 36.6; O2SAT 97; BMI 28.3
--- NOTE | 2018-06-19 15:33 | EKG12_ITS ---
Test Reason : OVERDOSE Blood Pressure : / mmHG Vent. Rate : 075 BPM Atrial Rate : 075 BPM P-R Int : 202 ms QRS Dur : 092 ms QT Int : 476 ms P-R-T Axes : 058 004 082 degrees QTc Int : 531 ms Normal sinus rhythm Nonspecific ST and T wave abnormality Prolonged QT Abnormal ECG Confirmed by BERTHA MORTON, DAYO ([id number]), make up editor NEGRA DE LA O ([id number]) on 06/20/2018 5:17:30 PM Referred By: RUPAL Confirmed By:DAYO STONE MD
--- NOTE | 2018-06-19 15:35 | ED.VISSUMM ---
- ER Visit Summary Date of Service: 06/19/18 Chief Complaint: Accidental overdose History of Present Illness: The patient is a 78 F who presents after taking 3 extra doses of atenolol 50 mg, duloxetine 30 mg, duloxetine 60 mg, 4 extra doses of Relafen 750 mg and 4 extra doses of vitamin B12. Patient took these approximately 45 minutes prior to arrival. Currently, the patient denies any symptoms. Family states the patient became confused and accidentally took extra doses of her medications. Physical Examination: Vital signs are stable. Patient is afebrile. Patient is in no acute distress. Oral mucosa is pink and moist. Neck is supple. Trachea is midline. There is no JVD noted. Heart was regular rate and rhythm. Lungs are clear and equal bilaterally. Abdomen is soft. Bowel sounds are normal. There is no tenderness. Cranial nerves II through XII are intact. There are no focal motor or sensory deficits noted. The remaining physical exam is within normal limits. Test Results: EKG showed normal sinus rhythm with a rate of 75. There are no acute ST or T wave changes. This was unchanged compared to previous EKG dated 11/10/2011. CBC and conference of metabolic profile were obtained. Glucose was slightly elevated at 390. The remaining labs were within normal limits. Emergency Department Course and Treatment: Case was discussed with poison control. They recommended administering charcoal if the patient was able to swallow without difficulty. Patient was able to swallow one sip of the activated charcoal but began to cough and gag. Charcoal was canceled. Patient was observed in the emergency department on a shelter monitor. Patient's blood pressure remained normal. Patient's heart rate remained normal. Case was discussed with the hospitalist. He does not feel the patient needs to be admitted for observation. Case was discussed with the family. They will stay with the patient tonight and monitor the patient. They were instructed to return if worse in any way. Patient and family understood and were agreeable with the plan. All questions were answered. Disposition: Discharge home Impression: Accidental overdose This note was generated with [employer] dictation software. It may contain incorrect words, spelling, and punctuation that were not noted in review of the chart prior to signing ED Disposition - Plan for ED Patient: Disposition: Home or Assisted Living Chief Complaint: Overdose Diagnosis: Accidental drug overdose Instructions: ED Overdose Accidental Referrals: Edvin Buckley MD [Primary Care Provider] -
[2018-06-19] MEDS: Activated Charcoal 50 GM/240 ML BOT PO (16:10)
[2018-06-19 16:13] LABS: Absolute Lymphocyte Count 1.37 X10^3/ul (0.83-4.51); Absolute Neutrophil Count 6.6 X10^3/uL (2.0-7.7); Basophil# 0.06 X10^3/uL; Basophil% 0.7 % (0-1); Eosinophil# 0.62 X10^3/uL; Eosinophils% 6.8 % (0-5); Hematocrit 41.8 % (37-47); Hemoglobin 13.5 g/dl (12.0-15.0); Lymphocyte # 1.37 X10^3/ul (4.0); Mean Corp Hgb Conc 32.3 g/gl (32-36); Mean Corpuscular Hgb 28.3 pg (27.0-32.0); Mean Corpuscular Volume 87.6 fL (81-99); Mean Platelet Vol. 9.9 fl (6.2-12.0); Monocyte# 0.52 X10^3/uL; Monocyte% 5.7 % (0-10); Neutrophil # 6.57 X10^3/uL (2.7-7.7); Neutrophil % 71.6 % (47-70); Platelet Count 372 K/mm3 (150-450); RBC Distribution Width CV 13.7 % (11.6-14.6); RBC Distribution Width SD 43.9 fl (35.1-43.9); Red Blood Count 4.77 M/mm3 (4.2-5.4); White Blood Count 9.2 K/mm3 (4.4-11.0)
[2018-06-19 16:17] LABS: AST(SGOT) 21 U/L (15-37); Alanine Aminotransfer ALT/SGPT 44 U/L (13-56); Albumin, Serum 3.4 g/dL (3.2-5.0); Alkaline Phosphatase 105 U/L (45-117); Anion Gap 12 (5-15); BUN 19 mg/dL (7-18); Calcium,Total 9.3 mg/dL (8.5-10.1); Chloride 101 mmol/L (98-107); Creatinine, Serum 0.95 mg/dL (0.55-1.02); EST Glomerular Filtration Rate 61 mL/min (>60); Est Glom Filt Rate - Afr Amer 73 mL/min (>60); Estimated Creatinine Clearance 45.33 ml/min; Globulin 3.4 g/dL (2.2-4.2); Glucose 390 mg/dL (74-106); Potassium 4.2 mmol/L (3.5-5.1); Protein, Total 6.8 g/dL (6.4-8.2); Sodium Level 139 mmol/L (136-145)
[2018-06-19 16:25] LABS: Bedside Glucose 351 mg/dL (70-110)
[2018-06-19 16:27] LABS: POSITIVE COUNT NO; POSITIVE DIFFERENTIAL NO; POSITIVE MORPHOLOGY NO
--- NOTE | 2018-06-19 16:29 | ED.RN ---
pt unable to drink charcoal. pt choking. dr carter. [facility]
--- NOTE | 2018-06-19 18:17 | NURSING ---
DR AGUILAR FOR DR TAN
[2018-06-19 18:38] VITALS: BP 161/87; PULSE 72; RESP 15; O2SAT 98
--- NOTE | 2018-06-19 21:07 | ED.RN ---
POISON CONTROL- SAUL CALLED TO CHECK ON PATIENT. [facility]UL WAS UPDATED THAT PT WAS DC/D
== END 2018-06-19 18:40 | disposition home or self-care (01) ==
PROVIDERS: Emergency Provider Emergency Medicine; Family Provider Family Medicine; PCP Family Medicine
DX: T44.7X1A Poisoning by beta-adrenoreceptor antagonists, accidental (unintentional), initial encounter (principal); T43.211A Poisoning by selective serotonin and norepinephrine reuptake inhibitors, accidental (unintentional), initial encounter; T39.391A Poisoning by other nonsteroidal anti-inflammatory drugs [NSAID], accidental (unintentional), initial encounter; T45.2X1A Poisoning by vitamins, accidental (unintentional), initial encounter; Y92.9 Unspecified place or not applicable; J34.89 Other specified disorders of nose and nasal sinuses; E11.9 Type 2 diabetes mellitus without complications; I10 Essential (primary) hypertension; Z79.84 Long term (current) use of oral hypoglycemic drugs; Z79.899 Other long term (current) drug therapy
CPT/HCPCS: 80053; 82962; 85025; 93005; 99285; A4216

== ENCOUNTER → 2018-07-22 09:58 | Outpatient (CLI) | payer MEDICARE, OTHER, SELFPAY ==
--- NOTE | 2018-07-22 10:36 | RAD_ITS ---
STUDY: X-RAY CHEST REASON FOR EXAM: Female, 78 years old. Chronic cough with history of breast augmentation surgery TECHNIQUE: PA and lateral views of the chest. COMPARISON: 03/09/2016 FINDINGS: Bilateral breast implants unchanged. The lungs are clear and expanded. There is no demonstrated pleural abnormality. Normal size heart. Normal mediastinum and mercedes. Normal visualized pulmonary arteries. There is atherosclerotic tortuosity of the aortic arch and descending thoracic aorta. There is demineralization of the osseous structures. Normal visualized ribs, clavicles, and shoulders. There is no demonstrated abnormality of the visualized soft tissue structures of the upper abdomen. RAD/Chest PA and Lateral IMPRESSION: 1. No airspace consolidation or pleural effusion. Electronically Signed: Jasbir Anna MD at 11:31 EST , Service support ,
== END ==
PROVIDERS: Family Provider Family Medicine; PCP Family Medicine; Referring Provider Family Medicine; Visit Provider Family Medicine
DX: R05 Cough (principal)
CPT/HCPCS: 71046

== ENCOUNTER 2018-08-03 13:00 | Outpatient (RCR) | payer MEDICARE, OTHER, SELFPAY | END 2018-08-03 23:59 | LOC: DC 13:00 | PROVIDERS: Family Provider Family Medicine; PCP Family Medicine; Visit Provider Family Medicine | DX: E11.9 Type 2 diabetes mellitus without complications (principal); Z71.3 Dietary counseling and surveillance; R41.3 Other amnesia; I10 Essential (primary) hypertension; E78.5 Hyperlipidemia, unspecified; F03.90 Unspecified dementia, unspecified severity, without behavioral disturbance, psychotic disturbance, mood disturbance, and anxiety; E53.8 Deficiency of other specified B group vitamins; F32.9 Major depressive disorder, single episode, unspecified | CPT/HCPCS: 97802; G0108 ==

== ENCOUNTER → 2018-08-28 07:02 | Outpatient (CLI) | payer MEDICARE, OTHER, SELFPAY ==
[2018-08-28 10:41] LABS: Absolute Lymphocyte Count 3.15 X10^3/ul (0.83-4.51); Absolute Neutrophil Count 7.2 X10^3/uL (2.0-7.7); Basophil# 0.06 X10^3/uL; Basophil% 0.5 % (0-1); Eosinophils% 3.4 % (0-5); Hemoglobin 15.3 g/dl (12.0-15.0); Lymphocyte # 3.15 X10^3/ul (4.0); Mean Corp Hgb Conc 32.6 g/gl (32-36); Mean Corpuscular Hgb 28.3 pg (27.0-32.0); Mean Corpuscular Volume 86.9 fL (81-99); Monocyte% 6.9 % (0-10); Neutrophil # 7.22 X10^3/uL (2.7-7.7); Platelet Count 470 K/mm3 (150-450); RBC Distribution Width SD 41.2 fl (35.1-43.9); Red Blood Count 5.41 M/mm3 (4.2-5.4); White Blood Count 11.7 K/mm3 (4.4-11.0)
[2018-08-28 10:52] LABS: POSITIVE COUNT NO; POSITIVE DIFFERENTIAL NO; POSITIVE MORPHOLOGY NO
[2018-08-28 11:01] LABS: AST(SGOT) 23 U/L (15-37); Alanine Aminotransfer ALT/SGPT 45 U/L (13-56); Albumin, Serum 3.8 g/dL (3.2-5.0); Alkaline Phosphatase 114 U/L (45-117); Anion Gap 10 (5-15); BUN 13 mg/dL (7-18); BUN/Creat Ratio 17.6 RATIO (10-20); Calcium,Total 9.8 mg/dL (8.5-10.1); Chloride 100 mmol/L (98-107); Creatinine, Serum 0.74 mg/dL (0.55-1.02); EST Glomerular Filtration Rate 81 mL/min (>60); Est Glom Filt Rate - Afr Amer 98 mL/min (>60); Glucose 217 mg/dL (74-106); Potassium 3.9 mmol/L (3.5-5.1); Protein, Total 7.8 g/dL (6.4-8.2); Sodium Level 139 mmol/L (136-145)
== END ==
PROVIDERS: Family Provider Family Medicine; PCP Family Medicine; Referring Provider Internal Medicine Rheumatology; Visit Provider Internal Medicine Rheumatology
DX: M06.4 Inflammatory polyarthropathy (principal)
CPT/HCPCS: 36415; 80053; 85025

== ENCOUNTER 2018-08-31 17:29 | Emergency (ER) | payer OTHER, MEDICARE, SELFPAY ==
[2018-08-31 17:29] VITALS: BP 206/98; PULSE 85; RESP 16; TEMP 36.3; O2SAT 96; BMI 27.3
--- NOTE | 2018-08-31 17:52 | CT_ITS ---
STUDY: CT BRAIN WITHOUT CONTRAST REASON FOR EXAM: Female, 78 years old. Right-sided facial pain RADIATION DOSAGE (If Supplied By Facility): CTDIvol = ( 44.99 ) mGy, DLP = ( 762.36 ) mGycm TECHNIQUE: Transaxial CT imaging of the brain was performed without administration of intravenous contrast material. Individualized dose optimization techniques were used for this CT. COMPARISON: 04/20/2018 FINDINGS: Normal soft tissue structures. Normal calvarium. There is mild cerebral atrophy with widening of the extra-axial spaces and ventricular dilatation. There are areas of decreased attenuation within the white matter tracts of the supratentorial brain, consistent with microvascular disease changes. Normal basal ganglia and thalami. Normal brainstem. There is mild cerebellar atrophy. There is no intracranial hemorrhage. There are no findings of an acute ischemic infarction. Normal visualized paranasal sinuses. CT/Brain/Head without Contrast IMPRESSION: Chronic involutional changes of the brain. Electronically Signed: Magdaleno Correia DO at 18:32 EDT Tel , Service support ,
--- NOTE | 2018-08-31 17:52 | RAD_ITS ---
STUDY: X-RAY CHEST REASON FOR EXAM: Female, 78 years old. Right-sided rib TECHNIQUE: PA and lateral views of the chest. COMPARISON: 07/22/15 FINDINGS: The lungs are clear and expanded. There is no demonstrated pleural abnormality. Normal size heart. Normal mediastinum and mercedes. Normal visualized pulmonary arteries. Normal visualized aortic arch and descending thoracic aorta. Normal visualized thoracic spine. Normal visualized ribs, clavicles, and shoulders. There is no demonstrated abnormality of the visualized soft tissue structures of the upper abdomen. RAD/Chest PA and Lateral IMPRESSION: Normal x-ray examination of the chest. Electronically Signed: Magdaleno Correia DO at 18:33 EDT Tel , Service support ,
--- NOTE | 2018-08-31 17:52 | CT_ITS ---
STUDY: CT FACIAL BONES WITHOUT CONTRAST REASON FOR EXAM: Female, 78 years old. Right-sided facial pain RADIATION DOSAGE (If Supplied By Facility): CTDIvol = ( 29.38 ) mGy, DLP = ( 562.15 ) mGycm TECHNIQUE: The patient was scanned in a multi detector CT scanner. Sagittal and coronal images were reconstructed. Individualized dose optimization techniques were used for this CT. COMPARISON: None. FINDINGS: Right-sided facial and cheek swelling Normal orbital mckee and orbital contents. Normal nasal bones and anterior nasal spine. Normal facial bones. There is no demonstrated fracture. Normal visualized paranasal sinuses. CT/Sinus/Facial Bone IMPRESSION: No acute osseous findings. Right-sided facial and cheek swelling. Electronically Signed: Magdaleno Correia DO at 18:33 EDT Tel , Service support ,
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
[2018-08-31 18:11] LABS: Bedside Glucose 409 mg/dL (70-110)
[2018-08-31 18:44] LABS: Absolute Neutrophil Count 8.1 X10^3/uL (2.0-7.7); Basophil# 0.04 X10^3/uL; Basophil% 0.3 % (0-1); Eosinophil# 0.37 X10^3/uL; Eosinophils% 3.1 % (0-5); Hematocrit 41.9 % (37-47); Hemoglobin 13.8 g/dl (12.0-15.0); Lymphocyte % 20.3 % (19-41); Mean Corp Hgb Conc 32.9 g/gl (32-36); Mean Corpuscular Hgb 28.6 pg (27.0-32.0); Mean Corpuscular Volume 86.7 fL (81-99); Mean Platelet Vol. 9.5 fl (6.2-12.0); Monocyte# 0.91 X10^3/uL; Monocyte% 7.7 % (0-10); Neutrophil # 8.08 X10^3/uL (2.7-7.7); Neutrophil % 68.4 % (47-70); Platelet Count 354 K/mm3 (150-450); RBC Distribution Width SD 41.1 fl (35.1-43.9); Red Blood Count 4.83 M/mm3 (4.2-5.4); White Blood Count 11.8 K/mm3 (4.4-11.0)
[2018-08-31 18:45] LABS: POSITIVE COUNT NO; POSITIVE DIFFERENTIAL NO; POSITIVE MORPHOLOGY NO
[2018-08-31 18:51] LABS: Anion Gap 7 (5-15); BUN 16 mg/dL (7-18); Calcium,Total 9.3 mg/dL (8.5-10.1); Chloride 102 mmol/L (98-107); Creatinine, Serum 0.76 mg/dL (0.55-1.02); EST Glomerular Filtration Rate 78 mL/min (>60); Est Glom Filt Rate - Afr Amer 95 mL/min (>60); Estimated Creatinine Clearance 43.07 ml/min; Glucose 390 mg/dL (74-106); Potassium 3.6 mmol/L (3.5-5.1); Sodium Level 136 mmol/L (136-145)
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
[2018-08-31 19:23] VITALS: RESP 16
== END 2018-08-31 19:24 | disposition home or self-care (01) ==
PROVIDERS: Emergency Provider Emergency Medicine; Family Provider Family Medicine; PCP Family Medicine
DX: S00.83XA Contusion of other part of head, initial encounter (principal); S20.211A Contusion of right front wall of thorax, initial encounter; V44.5XXA Car driver injured in collision with heavy transport vehicle or bus in traffic accident, initial encounter; Y93.9 Activity, unspecified; Y92.9 Unspecified place or not applicable; Y99.9 Unspecified external cause status; E11.65 Type 2 diabetes mellitus with hyperglycemia; I10 Essential (primary) hypertension; Z79.84 Long term (current) use of oral hypoglycemic drugs; Z79.899 Other long term (current) drug therapy; Z98.82 Breast implant status
CPT/HCPCS: 70450; 70486; 71046; 80048; 82009; 82962; 85025; 99283; A4216

== ENCOUNTER → 2018-12-08 | Outpatient (CLI) | payer OTHER, MEDICARE, SELFPAY ==
[2018-12-08 12:38] LABS: Absolute Lymphocyte Count 1.89 X10^3/ul (0.83-4.51); Absolute Neutrophil Count 8.1 X10^3/uL (2.0-7.7); Basophil# 0.08 X10^3/uL; Basophil% 0.7 % (0-1); Eosinophil# 0.45 X10^3/uL; Hematocrit 45.1 % (37-47); Hemoglobin 14.9 g/dl (12.0-15.0); Lymphocyte # 1.89 X10^3/ul (4.0); Lymphocyte % 16.8 % (19-41); Mean Corpuscular Hgb 28.2 pg (27.0-32.0); Mean Corpuscular Volume 85.3 fL (81-99); Mean Platelet Vol. 10.1 fl (6.2-12.0); Monocyte# 0.66 X10^3/uL; Monocyte% 5.9 % (0-10); Neutrophil # 8.11 X10^3/uL (2.7-7.7); Neutrophil % 72.3 % (47-70); Platelet Count 468 K/mm3 (150-450); RBC Distribution Width SD 40.3 fl (35.1-43.9); Red Blood Count 5.29 M/mm3 (4.2-5.4); White Blood Count 11.2 K/mm3 (4.4-11.0)
[2018-12-08 12:50] LABS: POSITIVE COUNT NO; POSITIVE DIFFERENTIAL NO; POSITIVE MORPHOLOGY NO
[2018-12-08 13:03] LABS: ALB/GLOB Ratio 0.9 RATIO (0.9-2.4); AST(SGOT) 27 U/L (15-37); Alanine Aminotransfer ALT/SGPT 44 U/L (13-56); Albumin, Serum 3.5 g/dL (3.2-5.0); Alkaline Phosphatase 110 U/L (45-117); Anion Gap 10 (5-15); BUN 14 mg/dL (7-18); BUN/Creat Ratio 16.3 RATIO (10-20); Calcium,Total 9.6 mg/dL (8.5-10.1); Chloride 100 mmol/L (98-107); Creatinine, Serum 0.86 mg/dL (0.55-1.02); EST Glomerular Filtration Rate 68 mL/min (>60); Est Glom Filt Rate - Afr Amer 82 mL/min (>60); Globulin 3.9 g/dL (2.2-4.2); Glucose 369 mg/dL (74-106); Potassium 4.1 mmol/L (3.5-5.1); Protein, Total 7.4 g/dL (6.4-8.2); Sodium Level 138 mmol/L (136-145)
== END | disposition home or self-care (01) ==
LOC: MTLAB 10:21
PROVIDERS: Family Provider Family Medicine; PCP Family Medicine; Referring Provider Internal Medicine Rheumatology; Visit Provider Internal Medicine Rheumatology
DX: M06.4 Inflammatory polyarthropathy (principal); Z79.899 Other long term (current) drug therapy; M15.9 Polyosteoarthritis, unspecified; M18.0 Bilateral primary osteoarthritis of first carpometacarpal joints; M17.0 Bilateral primary osteoarthritis of knee; L64.8 Other androgenic alopecia; F41.9 Anxiety disorder, unspecified; F32.89 Other specified depressive episodes; I10 Essential (primary) hypertension
CPT/HCPCS: 36415; 80053; 85025

== ENCOUNTER 2019-02-27 10:00 | Emergency (ER) | payer MEDICARE, OTHER, SELFPAY ==
[2019-02-27 10:01] VITALS: BP 181/105; PULSE 78; RESP 16; TEMP 36.8; O2SAT 99; BMI 26.6
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
--- NOTE | 2019-02-27 10:15 | RAD_ITS ---
STUDY: X-RAY - UNILATERAL RIBS ( LEFT ) WITH CHEST REASON FOR EXAM: Female, 78 years old. Left lateral rib pain following a fall. TECHNIQUE - RIBS: 2 view(s) of the ribs. TECHNIQUE - CHEST: Single PA view of the chest. COMPARISON: None. FINDINGS - RIBS: Nondisplaced fractures of the left sixth and seventh ribs posterolaterally. FINDINGS - CHEST: Hyperinflation. There is no demonstrated pleural abnormality. Normal size heart. Normal mediastinum and mercedes. Normal visualized pulmonary arteries. There is atherosclerotic calcification of the aortic arch with tortuosity. There are diffuse degenerative changes of the visualized thoracic spine. Normal visualized ribs, clavicles, and shoulders. There is no demonstrated abnormality of the visualized soft tissue structures of the upper abdomen. RAD/Ribs Uni Min 3V w/PA Chest IMPRESSION: RIBS: Nondisplaced fractures of the left sixth and seventh ribs posterolaterally. CHEST: Normal x-ray examination of the chest. Electronically Signed: Mynor Rodriguez, at 11:00 EDT , Service support ,
[2019-02-27] MEDS: Acetaminophen 325 MG Tablet 650 MG PO (10:52)
--- NOTE | 2019-02-27 11:39 | ED.RN ---
called hospital transportation van for pt ride home. will arrive to ED approx 1230. pt aware. bandaid given for arm. denied wanting water. no other needs stated. pt in waiting room now.
== END 2019-02-27 11:40 | disposition home or self-care (01) ==
LOC: ED 10:32
PROVIDERS: Emergency Provider Emergency Medicine; Family Provider Family Medicine; PCP Family Medicine
DX: S22.42XA Multiple fractures of ribs, left side, initial encounter for closed fracture (principal); W19.XXXA Unspecified fall, initial encounter; Y93.9 Activity, unspecified; Y92.9 Unspecified place or not applicable
CPT/HCPCS: 71101; 99284

== ENCOUNTER 2019-03-29 21:25 | Inpatient (IN) | payer MEDICARE, OTHER, SELFPAY ==
[2019-03-29 21:26] VITALS: BP 196/91; PULSE 73; RESP 24; TEMP 36.7; O2SAT 97; BMI 29.2
[2019-03-29 21:46] LABS: Absolute Lymphocyte Count 2.26 X10^3/uL (0.83-4.51); Absolute Neutrophil Count 15.8 X10^3/uL (2.0-7.7); Basophil# 0.09 X10^3/uL; Basophil% 0.5 % (0-1); Eosinophil# 0.35 X10^3/uL; Eosinophils% 1.8 % (0-5); Hematocrit 42.7 % (37-47); Hemoglobin 13.9 g/dL (12.0-15.0); Lymphocyte # 2.26 X10^3/ul (4.0); Lymphocyte % 11.4 % (19-41); Mean Corp Hgb Conc 32.6 g/dL (32-36); Mean Corpuscular Hgb 28.1 pg (27.0-32.0); Mean Corpuscular Volume 86.4 fL (81-99); Mean Platelet Vol. 9.2 fl (6.2-12.0); Monocyte# 1.28 X10^3/uL; Monocyte% 6.4 % (0-10); NRBC Flagged by Analyzer 0 % (0-5); Neutrophil # 15.79 X10^3/uL (2.7-7.7); Neutrophil % 79.5 % (47-70); Platelet Count 453 K/mm3 (150-450); RBC Distribution Width CV 12.8 % (11.6-14.6); Red Blood Count 4.94 M/mm3 (4.2-5.4); White Blood Count 19.9 K/mm3 (4.4-11.0)
[2019-03-29 22:00] LABS: Anion Gap 9 (5-15); BUN 11 mg/dL (7-18); BUN/Creat Ratio 15.3 RATIO (10-20); Calcium,Total 9.5 mg/dL (8.5-10.1); Chloride 99 mmol/L (98-107); Creatinine, Serum 0.72 mg/dL (0.55-1.02); EST Glomerular Filtration Rate 83 mL/min (>60); Est Glom Filt Rate - Afr Amer 101 mL/min (>60); Estimated Creatinine Clearance 41.33 ml/min; Glucose 170 mg/dL (74-106); Potassium 3.7 mmol/L (3.5-5.1); Sodium Level 137 mmol/L (136-145)
[2019-03-29 22:02] LABS: Mucous, Urine 0 SEEN /hpf (<or=2+)
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
[2019-03-29 22:18] LABS: Color, Urine Yellow (Yellow); Glucose, Dipstick 50 mg/dl (Normal); Ketone-Dipstick 5 mg/dl (Negative); Leukocyte Esterase-Dipstick 500 /ul (Negative); Nitrite-Dipstick Negative (Negative); Occult Blood-Urine 150 /ul (Negative); Protein-Dipstick 30 mg/dl (Negative); Specific Gravity, Urine 1.015 (1.002-1.030); Urine Bilirubin Dipstick Negative (Negative); Urine Clarity Cloudy (Clear); Urine Urobilinogen 1 mg/dl (Normal); Urine pH 6.5 (5.0 - 8.0)
[2019-03-29 22:24] LABS: Bacteria RARE /hpf (None Seen); Red Blood Cells-Urine 0-5 SEEN /hpf (0-5); Squamous Epithelial Cells - UA 0-5 SEEN /hpf (5-10); White Blood Cells 25-50 SEEN /hpf (0-5)
--- NOTE | 2019-03-29 22:37 | CT_ITS ---
STUDY: CT ABDOMEN AND PELVIS WITHOUT CONTRAST REASON FOR EXAM: Female, 78 years old. Right flank pain and diarrhea, elevated WBC. History of hypertension, diabetes, dementia, appendectomy, cholecystectomy, hysterectomy. RADIATION DOSAGE (If Supplied By Facility): CTDIvol = ( 8.71 ) mGy, DLP = ( 408.98 ) mGycm TECHNIQUE: Transaxial 2.5 mm images were obtained from the dome of the diaphragm to the symphysis pubis without oral contrast, and without intravenous contrast. Sagittal and coronal images were reconstructed. This examination is limited for the evaluation of gastrointestinal, solid organs and vascular structures due to the lack of intravenous and oral contrast. Individualized dose optimization techniques were used for this CT. COMPARISON: CT abdomen pelvis 07/11/2008 images only. FINDINGS: Minimal scarring in the lung bases with hyperinflation. The visualized portions of the heart are within normal limits. Bilateral breast augmentation. There is decreased attenuation of the enlarged liver consistent with steatosis. The gallbladder is not visualized. Normal spleen. Normal pancreas. Stable left adrenal mass 2.7 x 2.7 cm. This is low attenuated and felt to be a benign entity with stability since 2008. Normal right adrenal gland. Normal right kidney. Cortical stable thinning left upper renal pole likely scarring. There is no obstructive uropathy, obstructive renal or ureteral calculi. Left retroaortic renal vein as a vascular variant. There is a small hiatal hernia. Normal small intestine. Normal colon. There is non-visualization of the appendix. There is diffuse atherosclerotic calcification of the abdominal aorta, without a demonstrated aneurysm. Normal inferior vena cava. Normal retroperitoneum. Normal urinary bladder. There is absence of the uterus consistent with a prior hysterectomy. Normal abdominal wall. Probable surgical changes suprapubic. Large lipoma of the right gluteal soft tissue. There are diffuse degenerative changes of the visualized lumbar spine, fusion of lower lumbar spine, levoscoliosis.. CT/Abdomen/Pelvis without Cont IMPRESSION: There is no obstructive uropathy, obstructive renal or ureteral calculi. There is no abscess, collection, perforation or obstruction. Hepatomegaly, hepatic steatosis, postsurgical changes, left adrenal mass, left renal scarring, atherosclerosis, right gluteal lipoma, osteoporosis and degenerative changes without significant interval change. Electronically Signed: Peace Joe MD at 0:20 EDT , Service support ,
--- NOTE | 2019-03-29 22:38 | ED.VIS.GEN ---
History of Present Illness Chief Complaint: Abd Pain Narrative: Patient is a 78-year-old female who presents with right flank pain. This began abruptly about 3 to 4 hours ago. She did fall a couple of weeks ago and was diagnosed with rib fractures but her pain is in her mid right flank lower than her ribs. No exacerbating or relieving factors. Her pain from her rib fractures is improved. She is not short of breath. She denies fever nausea or vomiting. Her pain radiates slightly into the back. She denies urinary symptoms. She did have a couple of episodes of diarrhea today. She initially had diarrhea couple weeks ago which lasted a couple days and then had resolved until recurring today with 2 episodes. Past Medical History - Allergies and Home Meds Allergies/Adverse Reactions: Allergies codeine Allergy (Verified 03/29/19 21:31) Vomiting Primary Care Physician: Edvin Buckley MD [Primary Care Provider] - Past Medical History: - - Diabetes, hypertension Surgical History: cholecystectomy, total knee arthroplasty Smoking Status: Never smoker - Family History Paternal Family History: Reports: No pertinent history Review of Systems All systems negative except as indicated General: Denies: Fever Cardiovascular: Denies: Chest pain Respiratory: Denies: Dyspnea Gastrointestinal: Reports: Diarrhea. Denies: Nausea, Vomiting Genitourinary: Reports: - - Right flank pain Physical Exam Vital Signs/Narrative: Vital Signs Temp Pulse Resp BP Pulse Ox 03/29/19 21:26 98.0 F 73 24 H 196/91 H 97 Inital Vital Signs reviewed: Yes General: Well nourished Head: Normocephalic Eyes: EOMI ENT: Moist mucous membranes Neck: Supple Cardiovascular: Regular rate, Regular rhythm Respiratory: No distress, CTA bilaterally Abdomen: Soft, Nontender, Nondistended : - - Right flank tenderness, mild right CVA tenderness Skin: Normal color Neurological: Alert Psychological: Normal affect Diagnostic/Tx/Re-eval Impressions Abdomen/Pelvis CT 03/29/19 22:37 IMPRESSION: There is no obstructive uropathy, obstructive renal or ureteral calculi. There is no abscess, collection, perforation or obstruction. Hepatomegaly, hepatic steatosis, postsurgical changes, left adrenal mass, left renal scarring, atherosclerosis, right gluteal lipoma, osteoporosis and degenerative changes without significant interval change. Electronically Signed: Peace Joe MD at 0:20 EDT , Service support , 03/29/19 22:37 CT Abd [Abdomen/Pelvis without Cont] [CT] Stat Laboratory Results 03/29/19 03/29/19 03/29/19 21:35 21:35 21:35 WBC 19.9 H RBC 4.94 Hgb 13.9 Hct 42.7 MCV 86.4 MCH 28.1 MCHC 32.6 RDW Std Deviation 40.0 RDW Coeff of Anneliese 12.8 Plt Count 453 H MPV 9.2 Immature Gran % (Auto) 0.400 Neut % (Auto) 79.5 H Lymph % (Auto) 11.4 L [place] % (Auto) 6.4 Eos % (Auto) 1.8 Baso % (Auto) 0.5 Absolute Neuts (auto) 15.8 H Absolute Lymphs (auto) 2.26 Nucleated RBC % 0 Sodium 137 Potassium 3.7 Chloride 99 Carbon Dioxide 29.0 Anion Gap 9 BUN 11 Creatinine 0.72 Estim Creat Clear Calc 41.33 Est GFR (MDRD) Af Amer 101 Est GFR (MDRD) Non-Af 83 BUN/Creatinine Ratio 15.3 Glucose 170 H Lactic Acid Calcium 9.5 Total Bilirubin 0.50 Direct Bilirubin 0.11 AST 15 ALT 28 Alkaline Phosphatase 102 Total Protein 7.8 Albumin 3.5 Globulin 4.3 H Lipase Urine Color Urine Clarity Urine pH Ur Specific [place] Urine Protein Urine Glucose (UA) Urine Ketones Urine Occult Blood Urine Nitrite Urine Bilirubin Urine Urobilinogen Ur Leukocyte Esterase Urine RBC Urine WBC Ur Squamous Epith Cells Urine Bacteria Urine Mucus 03/29/19 03/29/19 03/29/19 21:35 21:58 22:45 WBC RBC Hgb Hct MCV MCH MCHC RDW Std Deviation RDW Coeff of Anneliese Plt Count MPV Immature Gran % (Auto) Neut % (Auto) Lymph % (Auto) [place] % (Auto) Eos % (Auto) Baso % (Auto) Absolute Neuts (auto) Absolute Lymphs (auto) Nucleated RBC % Sodium Potassium Chloride Carbon Dioxide Anion Gap BUN Creatinine Estim Creat Clear Calc Est GFR (MDRD) Af Amer Est GFR (MDRD) Non-Af BUN/Creatinine Ratio Glucose Lactic Acid 3.3 H Calcium Total Bilirubin Direct Bilirubin AST ALT Alkaline Phosphatase Total Protein Albumin Globulin Lipase 82 Urine Color Yellow Urine Clarity Cloudy Urine pH 6.5 Ur Specific [place] 1.015 Urine Protein 30 H Urine Glucose (UA) 50 H Urine Ketones 5 H Urine Occult Blood 150 H Urine Nitrite Negative Urine Bilirubin Negative Urine Urobilinogen 1 H Ur Leukocyte Esterase 500 H Urine RBC 0-5 SEEN Urine WBC 25-50 SEEN Ur Squamous Epith Cells 0-5 SEEN Urine Bacteria RARE Urine Mucus 0 SEEN - Medical Decision Making Patient was treated with IV fluids. Her work-up as above is notable for white count of 19.9, lactic acid of 3.3, and urinalysis is consistent with UTI. CT of the abdomen and pelvis did not show acute findings. However patient does meet severe sepsis criteria. She was given IV Rocephin. At this point I do feel she requires hospitalization for further treatment. Patient will be discussed with the hospitalist and admitted. ED Disposition - Plan for ED Patient: Disposition: Acute Care Hospital [facility] Diagnosis: Severe sepsis, UTI (urinary tract infection) Referrals: Edvin Buckley MD [Primary Care Provider] -
[2019-03-29 22:54] LABS: Lipase 82 U/L (73-393)
[2019-03-29 22:56] LABS: AST(SGOT) 15 U/L (15-37); Alanine Aminotransfer ALT/SGPT 28 U/L (13-56); Albumin, Serum 3.5 g/dL (3.2-5.0); Alkaline Phosphatase 102 U/L (45-117); Bilirubin, Direct 0.11 mg/dL (0.00-0.30); Globulin 4.3 g/dL (2.2-4.2); Protein, Total 7.8 g/dL (6.4-8.2)
[2019-03-29 23:25] LABS: Lactic Acid 3.3 mmol/L (0.4-2.0)
--- NOTE | 2019-03-29 23:26 | ED.RN ---
CRITICAL LAB VALUE RECEIVED FROM LAB. LACTIC ACID 3.3. DR. LYNCH NOTIFIED.
[2019-03-29] MEDS: Ceftriaxone 1 GM/50 ML BAG IV (23:47)
[2019-03-30] VITALS (14 sets, daily range): BP systolic 149–184; BP diastolic 60–98; PULSE 69–82; RESP 14–18; TEMP 36.6–37.7; O2SAT 92–98; BMI 28.8
--- NOTE | 2019-03-30 00:47 | PCM.HP.STD ---
Problem List (1) Severe sepsis Status: Acute (2) Depression Status: Chronic History of Present Illness Date of Admission: 03/30/19 Chief Complaint: Right flank pain. The patient is a 78 year old F with a significant history of hypertension and diabetes mellitus who presented to emergency department with right flank pain that started few hours before presentation. Patient describes the pain as excruciating; constant and sharp. There were no ameliorating or aggravating factors to the pain. Reportedly she had 2 episodes of loose diarrhea denies diarrhea several hours before her right flank pain began. Also she had loose bowel movement about 2 weeks ago. Patient denies any urinary symptoms. She denies any subjective fever or chills. She denies anorexia. At the emergency and her white count was 19.9. Lactic acid was 3.3. Patient was found to tachypnea. Her urinalysis was abnormal. Past Medical History Past Medical History (Chronic Problems): Chronic Problems Rheumatoid arthritis (Chronic) Diabetes mellitus type 2 in nonobese (Chronic) Depression (Chronic) Hyperlipidemia (Chronic) Benign essential hypertension (Chronic) Allergies codeine Allergy (Verified 03/29/19 21:31) Vomiting Home Medications: Ambulatory Orders Medication Instructions Recorded Atenolol [Tenormin (beta miki)] 1 tab PO DAILY PRN PRN 05/28/18 Cyanocobalamin (Vitamin B-12) 1,000 mcg PO DAILY 05/28/18 [B-12] Duloxetine HCl 30 mg PO DAILY 05/28/18 Nabumetone 1 tab PO DAILY 05/28/18 Duloxetine HCl 60 mg PO DAILY 06/19/18 Folic Acid 1 mg PO DAILY 06/19/18 metFORMIN (XR) [Glucophage Xr] 500 mg PO DAILY 06/19/18 Lidocaine/Transparent Dressing 1 ea TP DAILY #7 kit 02/27/19 [Lidocaine 4% Kit] Surgical History: cholecystectomy, hysterectomy, total knee arthroplasty Lives: Alone Smoking Status: Never smoker Alcohol: Sober - *Family History Paternal History Items: Diabetes Maternal History Items: Dementia Review of Systems Constitutional: Denies: Chills, Fever, Weight Change HEENT: Denies: Head Aches, Sinus Congestion, Sinus Drainage Cardiovascular: Denies: Chest Pain, Palpitations Respiratory: Denies: Cough, Shortness of breath at rest, Sputum production Gastrointestinal: Reports: Abdominal Pain - Right flank pain, Diarrhea. Denies: Nausea, Vomiting Genitourinary: Denies: Dysuria Musculoskeletal: Denies: Joint Pain, Joint Tenderness Skin: Denies: Rash, Wounds Neurological: Denies: Numbness, Tingling, Focal weakness Psychiatric: Denies: Anxiety, Depression, Homicidal Ideations, Suicidal Ideations Hematologic/ Lymphatic: Denies: Easy Bruising, Easy Bleeding VTE Information - Inpt Only VTE Present on Admission: No VTE Mechan Device Prophylaxis: None VTE Pharm Prophylaxis ordered?: Yes Patient Problems: Active and Suspected Problems Severe sepsis (Acute) UTI (urinary tract infection) (Acute) - Physical Exam Vitals/I&O's: Vital Signs Temp Pulse Resp BP Pulse Ox 98.0 F 78 14 159/98 H 96 03/29/19 21:26 03/30/19 00:05 03/30/19 00:05 03/30/19 00:05 03/30/19 00:05 Oxygen Delivery Method Room Air Weight: 77.2 kg Body Mass Index (BMI) 29.2 Finger Stick Blood Glucose 409 Intake and Output for Last 24 Hours 03/28/19 03/29/19 03/30/19 23:59 23:59 23:59 Intake Total 50 / 50 Balance 50 / 50 General: Alert, Oriented x3, Cooperative HEENT: Atraumatic, PERRLA, EOMI, Normocephalic Neck: Supple, No JVD, Negative Carotid Bruits Lungs: Clear to auscultation, Normal air movement Cardiovascular: Regular rate, No murmurs Abdomen: Bowel Sounds Present, Soft, Non Tender Extremities: No edema, Capillary Refill Less than 3 Seconds Skin: No rashes, No breakdown Musculoskeletal: No Tenderness to Palpation of Joints or Extremities Neurological: Cranial nerves II-XII grossly intact Psych/Mental Status: Normal Affect, Appropriate Laboratory Results 03/29/19 21:35: WBC 19.9 H, RBC 4.94, Hgb 13.9, Hct 42.7, MCV 86.4, MCH 28.1, MCHC 32.6, RDW Std Deviation 40.0, RDW Coeff of Anneliese 12.8, Plt Count 453 H, MPV 9.2, Immature Gran % (Auto) 0.400, Neut % (Auto) 79.5 H, Lymph % (Auto) 11.4 L, [place] % (Auto) 6.4, Eos % (Auto) 1.8, Baso % (Auto) 0.5, Absolute Neuts (auto) 15.8 H, Absolute Lymphs (auto) 2.26, Nucleated RBC % 0 03/29/19 21:35: Sodium 137, Potassium 3.7, Chloride 99, Carbon Dioxide 29.0, Anion Gap 9, BUN 11, Creatinine 0.72, Estim Creat Clear Calc 41.33, Est GFR (MDRD) Af Amer 101, Est GFR (MDRD) Non-Af 83, BUN/Creatinine Ratio 15.3, Glucose 170 H, Calcium 9.5 03/29/19 21:35: Total Bilirubin 0.50, Direct Bilirubin 0.11, AST 15, ALT 28, Alkaline Phosphatase 102, Total Protein 7.8, Albumin 3.5, Globulin 4.3 H 03/29/19 21:35: Lipase 82 03/29/19 21:58: Urine Color Yellow, Urine Clarity Cloudy, Urine pH 6.5, Ur Specific [place] 1.015, Urine Protein 30 H, Urine Glucose (UA) 50 H, Urine Ketones 5 H, Urine Occult Blood 150 H, Urine Nitrite Negative, Urine Bilirubin Negative, Urine Urobilinogen 1 H, Ur Leukocyte Esterase 500 H, Urine RBC 0-5 SEEN, Urine WBC 25-50 SEEN, Ur Squamous Epith Cells 0-5 SEEN, Urine Bacteria RARE, Urine Mucus 0 SEEN 03/29/19 22:45: Lactic Acid 3.3 H Assessment/Plan All Active Problems Severe sepsis (Acute) UTI (urinary tract infection) (Acute) The patient is a 78 year old F with a significant history of hypertension and diabetes mellitus who presented to emergency department with right flank pain; and found to have abnormal urinalysis; elevated lactic acid; leukocytosis and tachypnea consistent with severe sepsis secondary to UTI. Severe Sepsis secondary to UTI Lactic acid 3.3 On presentation patient had tachypnea with respiratory rate of 24. She had neutrophilic leukocytosis with white count of 19.9. She had abnormal urinalysis. Patient was started on ceftriaxone at the emergency department. Ceftriaxone continued. Blood cultures was ordered emergency department, follow Urine cultures ordered for the emergency department; follow IV hydration of normal saline and potassium. Trend lactic acid. Hold metformin Hypertension On presentation her blood pressure was not within goal Atenolol continued Trend blood pressure and adjust blood pressure medications. Diabetes mellitus On presentation her blood glucose was within goal. Metformin held secondary to lactic acidosis. Accu-Chek QA CHS with correction scale. Calorie controlled diet. Left adrenal mass Stable Outpatient follow-up. Depression/anxiety Cymbalta continued DVT prophylaxis Subcutaneous Lovenox Code Visit Inpatient E&M: 31800 Init Hosp L3
--- NOTE | 2019-03-30 01:20 | SEPSIS_ITS ---
Sepsis Note - Physical Exam/Vitals Objective: Abdomen/Pelvis CT 03/29/19 22:37 IMPRESSION: There is no obstructive uropathy, obstructive renal or ureteral calculi. There is no abscess, collection, perforation or obstruction. Hepatomegaly, hepatic steatosis, postsurgical changes, left adrenal mass, left renal scarring, atherosclerosis, right gluteal lipoma, osteoporosis and degenerative changes without significant interval change. Electronically Signed: Peace Joe MD at 0:20 EDT , Service support , Temp Pulse Resp BP Pulse Ox 98.0 F 78 14 159/98 H 96 03/29/19 21:26 03/30/19 00:05 03/30/19 00:05 03/30/19 00:05 03/30/19 00:05 03/29/19 03/29/19 03/29/19 22:45 21:58 21:35 WBC RBC Hgb Hct MCV MCH MCHC RDW Std Deviation RDW Coeff of Anneliese Plt Count MPV Immature Gran % (Auto) Neut % (Auto) Lymph % (Auto) [place] % (Auto) Eos % (Auto) Baso % (Auto) Absolute Neuts (auto) Absolute Lymphs (auto) Nucleated RBC % Sodium Potassium Chloride Carbon Dioxide Anion Gap BUN Creatinine Estim Creat Clear Calc Est GFR (MDRD) Af Amer Est GFR (MDRD) Non-Af BUN/Creatinine Ratio Glucose Lactic Acid 3.3 H Calcium Total Bilirubin Direct Bilirubin AST ALT Alkaline Phosphatase Total Protein Albumin Globulin Lipase 82 Urine Color Yellow Urine Clarity Cloudy Urine pH 6.5 Ur Specific [place] 1.015 Urine Protein 30 H Urine Glucose (UA) 50 H Urine Ketones 5 H Urine Occult Blood 150 H Urine Nitrite Negative Urine Bilirubin Negative Urine Urobilinogen 1 H Ur Leukocyte Esterase 500 H Urine RBC 0-5 SEEN Urine WBC 25-50 SEEN Ur Squamous Epith Cells 0-5 SEEN Urine Bacteria RARE Urine Mucus 0 SEEN 03/29/19 03/29/19 03/29/19 21:35 21:35 21:35 WBC 19.9 H RBC 4.94 Hgb 13.9 Hct 42.7 MCV 86.4 MCH 28.1 MCHC 32.6 RDW Std Deviation 40.0 RDW Coeff of Anneliese 12.8 Plt Count 453 H MPV 9.2 Immature Gran % (Auto) 0.400 Neut % (Auto) 79.5 H Lymph % (Auto) 11.4 L [place] % (Auto) 6.4 Eos % (Auto) 1.8 Baso % (Auto) 0.5 Absolute Neuts (auto) 15.8 H Absolute Lymphs (auto) 2.26 Nucleated RBC % 0 Sodium 137 Potassium 3.7 Chloride 99 Carbon Dioxide 29.0 Anion Gap 9 BUN 11 Creatinine 0.72 Estim Creat Clear Calc 41.33 Est GFR (MDRD) Af Amer 101 Est GFR (MDRD) Non-Af 83 BUN/Creatinine Ratio 15.3 Glucose 170 H Lactic Acid Calcium 9.5 Total Bilirubin 0.50 Direct Bilirubin 0.11 AST 15 ALT 28 Alkaline Phosphatase 102 Total Protein 7.8 Albumin 3.5 Globulin 4.3 H Lipase Urine Color Urine Clarity Urine pH Ur Specific [place] Urine Protein Urine Glucose (UA) Urine Ketones Urine Occult Blood Urine Nitrite Urine Bilirubin Urine Urobilinogen Ur Leukocyte Esterase Urine RBC Urine WBC Ur Squamous Epith Cells Urine Bacteria Urine Mucus General: Alert, Oriented x3, Cooperative Lungs: Clear to auscultation, Normal air movement Cardiovascular: Regular rate, Regular Rhythm, No murmurs Capillary Refill: <3 seconds Peripheral Pulses: Normal Skin Color: [place] - Assessment/Plan Severe Sepsis secondary to UTI Trend lactic acid IVF hydration Blood cultures was ordered emergency department, follow Urine cultures ordered for the emergency department; follow Continue broad-spectrum antibiotics of ceftriaxone.
[2019-03-30 02:50] LABS: Reflex Lactate? Y
[2019-03-30] MEDS: oxyCODONE 5 MG Tablet PO ×2 (02:52→22:30)
[2019-03-30 03:30] LABS: Absolute Lymphocyte Count 2.78 X10^3/uL (0.83-4.51); Basophil# 0.09 X10^3/uL; Basophil% 0.4 % (0-1); Eosinophil# 0.03 X10^3/uL; Eosinophils% 0.1 % (0-5); Hematocrit 40.8 % (37-47); Hemoglobin 13.6 g/dL (12.0-15.0); Lymphocyte # 2.78 X10^3/ul (4.0); Mean Corp Hgb Conc 33.3 g/dL (32-36); Mean Corpuscular Hgb 28.3 pg (27.0-32.0); Mean Corpuscular Volume 84.8 fL (81-99); Mean Platelet Vol. 9.3 fl (6.2-12.0); Monocyte# 1.41 X10^3/uL; Monocyte% 6.6 % (0-10); NRBC Flagged by Analyzer 0 % (0-5); Neutrophil # 16.98 X10^3/uL (2.7-7.7); Neutrophil % 79.3 % (47-70); Platelet Count 437 K/mm3 (150-450); RBC Distribution Width CV 12.6 % (11.6-14.6); Red Blood Count 4.81 M/mm3 (4.2-5.4); White Blood Count 21.4 K/mm3 (4.4-11.0)
[2019-03-30] MEDS: hydrALAZINE 20 MG/ML Vial 5 MG IV ×3 (03:30→22:30)
[2019-03-30 03:44] LABS: Anion Gap 10 (5-15); BUN 12 mg/dL (7-18); BUN/Creat Ratio 16.4 RATIO (10-20); Calcium,Total 9.4 mg/dL (8.5-10.1); Chloride 100 mmol/L (98-107); Creatinine, Serum 0.73 mg/dL (0.55-1.02); EST Glomerular Filtration Rate 82 mL/min (>60); Est Glom Filt Rate - Afr Amer 99 mL/min (>60); Estimated Creatinine Clearance 41.33 ml/min; Glucose 164 mg/dL (74-106); Potassium 3.7 mmol/L (3.5-5.1); Sodium Level 135 mmol/L (136-145)
[2019-03-30 04:07] LABS: Lactic Acid 3.1 mmol/L (0.4-2.0)
[2019-03-30] MEDS: Insulin Lispro 100 UNIT/ML INSULN.PEN SC ×4 (06:39→22:35)
[2019-03-30 07:01] LABS: Bedside Glucose 153 mg/dL (70-110)
[2019-03-30] MEDS: Folic Acid 1 MG Tablet PO (07:56)
--- NOTE | 2019-03-30 09:39 | PCM.HOSP.N ---
Hospitalist Note Patient does not have lower urinary tract symptoms including burning micturition but has chronic increased frequency urgency which she attributes to diabetes mellitus. She has elevated lactic acid and leukocytosis probably secondary to dehydration. She also had 2 loose bowel movement last night. Right flank pain is resolved. Earlier she fell down at home forward on her knees and hit left shoulder. On exam there is tenderness over right lower ribs. On exam: Lungs: Air entry bilateral equal. No crepitation/rhonchi. Abdomen: Soft, nontender not distended, bowel sounds present. Chest: Mild tenderness to her right lower ribs. Extremities: No edema. : No renal angle tenderness. No suprapubic tenderness. Assessment and plan: Patient does not seem to have a focus of infection. Elevated lactic acid and leukocytosis possibly related to dehydration: She also had loose bowel movement. Not on antibiotic prior to admission Stool for occult blood, leukocyte and enteric bacteriology panel. For now, she does not qualify for C. difficile testing as suggested to loose bowel movements.
[2019-03-30] MEDS: DULoxetine Hcl 30 MG Capsule PO (09:49)
[2019-03-30] MEDS: Enoxaparin 40 MG/0.4 ML Syringe SC (09:49)
[2019-03-30] MEDS: DULoxetine Hcl 60 MG Capsule PO (09:49)
[2019-03-30] MEDS: Atenolol 50 MG Tablet PO (09:51)
[2019-03-30] MEDS: Cyanocobalamin 500 MCG Tablet 1000 MCG PO (09:52)
[2019-03-30] MEDS: Ceftriaxone 1 GM/50 ML BAG IV ×2 (10:00→22:29)
--- NOTE | 2019-03-30 10:22 | CASEMGMT ---
Pt had told admitting RN she has a living will but cannot bring it in, and does not have a healthcare power of criminal defense attorney. There is a general POA on file for pt. AGUSTINA Walker
[2019-03-30 11:05] LABS: Bedside Glucose 250 mg/dL (70-110)
--- NOTE | 2019-03-30 12:25 | CASEMGMT ---
Addendum entered by Jason Swenson 03/30/19 14:43: Call placed to [facility]. Message left on Jaycob's VM to inform her pt is admitted to [facility]. Addendum entered by Jason Swenson 03/30/19 14:38: Script for OP therapy received from Dr Cottrell. Given to pt at this time. Pt aware she can take to OP therapy facility of her choice. Original Note: RN CM LIQUOR DEPARTMENT MANAGER CM to room to meet with patient for initial transition planning/care coordination assessment. RN CM introduced self and role at [facility]. Pt voices understanding and consents to assessment at this time. Pt resting in bed in no distress at this time. Pt is A/O at this time and answers all questions appropriately. Care providers, pharmacy, and demographics verified at this time. PCP: Marcio Specialists: Angela for arthritis Preferred Pharmacy: [facility] Insurance: [facility], [facility] Prescription Benefit: Yes Living Will/HPOA: has both LW and HCPOA, who is her daughter, Patricia DICKENS: Daughter, Patricia Lofton. Son, Richardson Lofton Living Arrangements: Lives alone in one-story home w/basement. Denies difficulty with stairs. Independent with ADL's and home mgmt tasks. Transportation: Pt states drives self and states no transportation concerns at this time. will check with a neighbor @ discharge to see if can take her home or states will call a taxi. Pt instructed to let staff know if she has difficulty w/finding transportation home so assistance can be given. She voices understanding and appreciation. DME: has the following DME: shower chair, rails/grab bars, hand held shower Pt states no need for further DME at this time. HHC/SNF: No history of either and denies needs. No needs identified. OP therapy: Discussed OP therapy with pt and she states she feels she would benefit from this. She states she has been to [facility] in the past and would like to go back there. Pt wishes to return home and states has no concerns with going home at time of discharge. CM to follow for any further discharge planning/needs. Pt voices no further concerns/needs at this time. Advised pt to ask for CM if any further questions/concerns/needs arise. Voices understanding. PLAN: Home OP therapy, continuation of CCN, and discharge plans in place. Pt to be given Script for OP therapy prior to discharge. Kimberly MEJIAN RN CM
--- NOTE | 2019-03-30 13:03 | RAD_ITS ---
STUDY: X-RAY - BILATERAL RIBS REASON FOR EXAM: Female, 78 years old. Right lower left upper anterior rib pain, status post fall TECHNIQUE: 6 view(s) of the ribs. COMPARISON: February 27, 2019 rib series status post fall, CT scan March 29, 2019 abdomen and pelvis FINDINGS: The fractures that were seen on the prior study left ribs 6 and 7 are not well-visualized on today's study allowing for differences in technique. There are bilateral breast implants which partially obscure the ribs. There is degenerative change of the thoracic spine. There is mild cardiac enlargement. The aorta is tortuous partially calcified. The visualized lungs are clear and expanded. Normal heart, mediastinum and pulmonary mercedes. RAD/Ribs Bilat 3V No CXR IMPRESSION: No visualized acute fracture. Degenerative changes of the thoracic spine. Electronically Signed: Ni Betts MD at 14:09 EDT Tel , Service support ,
--- NOTE | 2019-03-30 13:40 | CASEMGMT ---
SW let pt know that LW/POA forms are not on the chart and asked her to bring the forms in as able. Pt states understanding. AGUSTINA Walker
[2019-03-30] MEDS: 0.9% Saline Lock 10 ML Syringe IV (16:58)
[2019-03-30 17:00] LABS: Bedside Glucose 188 mg/dL (70-110)
[2019-03-30 22:26] LABS: Bedside Glucose 211 mg/dL (70-110)
[2019-03-30] MEDS: hydrALAZINE 50 MG Tablet PO (22:30)
[2019-03-31] VITALS (13 sets, daily range): BP systolic 156–184; BP diastolic 67–88; PULSE 74–103; RESP 16–20; TEMP 36.5–37.5; O2SAT 92–99
[2019-03-31] MEDS: hydrALAZINE 20 MG/ML Vial 5 MG IV (04:29)
[2019-03-31] MEDS: oxyCODONE 5 MG Tablet PO (04:30)
[2019-03-31] MEDS: 0.9% Saline Lock 10 ML Syringe IV (04:34)
[2019-03-31] MEDS: hydrALAZINE 50 MG Tablet PO ×3 (04:57→21:33)
[2019-03-31] MEDS: Insulin Lispro 100 UNIT/ML INSULN.PEN SC ×4 (06:59→21:34)
[2019-03-31 07:06] LABS: Bedside Glucose 285 mg/dL (70-110)
[2019-03-31 10:33] LABS: Absolute Lymphocyte Count 1.24 X10^3/uL (0.83-4.51); Absolute Neutrophil Count 13.7 X10^3/uL (2.0-7.7); Basophil# 0.06 X10^3/uL; Basophil% 0.4 % (0-1); Eosinophils% 0.6 % (0-5); Hematocrit 40.9 % (37-47); Hemoglobin 13.2 g/dL (12.0-15.0); Lymphocyte # 1.24 X10^3/ul (4.0); Lymphocyte % 7.5 % (19-41); Mean Corp Hgb Conc 32.3 g/dL (32-36); Mean Corpuscular Hgb 28.1 pg (27.0-32.0); Mean Platelet Vol. 9.2 fl (6.2-12.0); Monocyte% 7.9 % (0-10); NRBC Flagged by Analyzer 0 % (0-5); Neutrophil # 13.68 X10^3/uL (2.7-7.7); Platelet Count 419 K/mm3 (150-450); RBC Distribution Width CV 13.1 % (11.6-14.6); RBC Distribution Width SD 41.4 fl (35.1-43.9); White Blood Count 16.5 K/mm3 (4.4-11.0)
[2019-03-31] MEDS: Ceftriaxone 1 GM/50 ML BAG IV (11:11)
[2019-03-31] MEDS: Atenolol 50 MG Tablet PO (11:12)
[2019-03-31] MEDS: Enoxaparin 40 MG/0.4 ML Syringe SC (11:12)
[2019-03-31] MEDS: DULoxetine Hcl 60 MG Capsule PO (11:12)
[2019-03-31] MEDS: Folic Acid 1 MG Tablet PO (11:13)
[2019-03-31] MEDS: Cyanocobalamin 500 MCG Tablet 1000 MCG PO (11:13)
[2019-03-31] MEDS: DULoxetine Hcl 30 MG Capsule PO (11:13)
[2019-03-31 12:00] LABS: Bedside Glucose 277 mg/dL (70-110)
[2019-03-31] MEDS: Acetaminophen 325 MG Tablet 650 MG PO (14:31)
[2019-03-31 17:11] LABS: Bedside Glucose 184 mg/dL (70-110)
--- NOTE | 2019-03-31 18:34 | PCM.PROGNOTE ---
Patient Problems: Active and Suspected Problems Severe sepsis (Acute) UTI (urinary tract infection) (Acute) Subjective: Patient was seen and examined today, CBC was ordered and showed a decreased white blood cell count today. Patient did not complain of any chills or fever. Patient's urinalysis indicated a contaminated specimen with mixed organisms. - Physical Exam Vitals/I&O's: Vital Signs Temp Pulse Resp BP Pulse Ox 97.7 F L 85 16 156/74 H 97 03/31/19 14:28 03/31/19 14:31 03/31/19 14:28 03/31/19 17:03 03/31/19 14:28 Oxygen Delivery Method Room Air Weight: 76.2 kg Body Mass Index (BMI) 28.8 Finger Stick Blood Glucose 409 Intake and Output for Last 24 Hours 03/29/19 03/30/19 03/31/19 23:59 23:59 23:59 Intake Total 2580 / 2880 1915.25 / 1915.25 Output Total 300 / 300 250 / 250 Balance 2280 / 2580 1665.25 / 1665.25 General: Alert, Oriented x3, Cooperative, No apparent distress, Well developed, Well nourished HEENT: Atraumatic, PERRLA, EOMI, Normocephalic Oral: Moist Mucosa Neck: Supple, No JVD, Negative Carotid Bruits, Trachea Midline, Thyroid Normal Size and Texture Lungs: Clear to auscultation, Normal air movement, No rhonchi, No wheeze, No rales Cardiovascular: Regular rate, Regular Rhythm, Normal S1, Normal S2, No murmurs Abdomen: Bowel Sounds Present, Soft, Non Tender, Non-Distended Extremities: No edema, Capillary Refill Less than 3 Seconds Skin: No rashes, No breakdown Musculoskeletal: No Tenderness to Palpation of Joints or Extremities Neurological: Cranial nerves II-XII grossly intact, Neuro grossly intact, Sensory exam intact to light touch and pain Psych/Mental Status: Normal Affect, Appropriate, Alert and oriented to time, place, person, mood and affect Microbiology Past 72 Hours 03/29/19 21:58 Urine, Clean Catch Urine Culture - Final Mixed Gram Pos & Gram Neg Org Laboratory Results 03/30/19 22:22: POC Glucose 211 H 03/31/19 06:57: POC Glucose 285 H 03/31/19 10:20: WBC 16.5 H, RBC 4.70, Hgb 13.2, Hct 40.9, MCV 87.0, MCH 28.1, MCHC 32.3, RDW Std Deviation 41.4, RDW Coeff of Anneliese 13.1, Plt Count 419, MPV 9.2, Immature Gran % (Auto) 0.600, Neut % (Auto) 83.0 H, Lymph % (Auto) 7.5 L, [place] % (Auto) 7.9, Eos % (Auto) 0.6, Baso % (Auto) 0.4, Absolute Neuts (auto) 13.7 H, Absolute Lymphs (auto) 1.24, Nucleated RBC % 0 03/31/19 11:18: POC Glucose 277 H 03/31/19 16:59: POC Glucose 184 H Current Medications Acetaminophen (Tylenol) 650 mg PO Q6H PRN PRN PRN Reason: Pain Score 1-3/Temp > 100.7 F Last Admin: 03/31/19 14:31 Dose: 650 mg Documented by: Atenolol (Tenormin (Beta Louann)) 50 mg PO DAILY [facility] Last Admin: 03/31/19 11:12 Dose: 50 mg Documented by: Cephalexin (Keflex) 500 mg PO Q12 [facility] Cyanocobalamin (Vitamin B12) 1,000 mcg PO DAILY [facility] Last Admin: 03/31/19 11:13 Dose: 1,000 mcg Documented by: Dextrose (D50w Syringe) 0 gm IV X1 PRN; Protocol PRN Reason: Hypoglycemia Duloxetine HCl (Cymbalta) 30 mg PO DAILY [facility] Last Admin: 03/31/19 11:13 Dose: 30 mg Documented by: Duloxetine HCl (Cymbalta) 60 mg PO DAILY [facility] Last Admin: 03/31/19 11:12 Dose: 60 mg Documented by: Enoxaparin Sodium (Lovenox) 40 mg SC DAILY@1000 [facility] Last Admin: 03/31/19 11:12 Dose: 40 mg Documented by: Folic Acid (Folic Acid) 1 mg PO DAILYCM [facility] Last Admin: 03/31/19 11:13 Dose: 1 mg Documented by: Glucagon () 1 mg IM .X1 PRN PRN Reason: Hypoglycemia Hydralazine HCl (Apresoline Iv) 5 mg IV Q4H PRN PRN PRN Reason: SBP<160 Last Admin: 03/31/19 04:29 Dose: 5 mg Documented by: Hydralazine HCl (Apresoline) 50 mg PO TID [place] Last Admin: 03/31/19 14:31 Dose: 50 mg Documented by: Sodium Chloride () 250 mls @ 15 mls/hr IV .[id number] PRN PRN Reason: Saline Flush Last Infusion: 03/31/19 04:55 Dose: 0 mls/hr Documented by: Insulin Human Lispro (Humalog Kwikpen (Bkc)) 0 unit SC ACHS [facility]; Protocol Last Admin: 03/31/19 17:00 Dose: 1 u Documented by: Ondansetron HCl (Zofran) 4 mg IV Q8H PRN PRN PRN Reason: NAUSEA/VOMITING Oxycodone HCl (Oxyir) 5 mg PO Q4H PRN PRN PRN Reason: MODERATE AND SEVERE PAIN Last Admin: 03/31/19 04:30 Dose: 5 mg Documented by: Sodium Chloride () 10 - 40 ml IV UD PRN PRN Reason: SALINE FLUSH Last Admin: 03/31/19 04:34 Dose: 10 ml Documented by: Medical Necessity - Tobacco Use Smoking Status: Never smoker Assessment/Plan All Active Problems Severe sepsis (Acute) UTI (urinary tract infection) (Acute) #1 severe sepsis secondary to acute cystitis-I changed the patient's antibiotic today to oral antibiotic, patient's white blood cell count was improved today #2 acute cystitis-organism unknown, again patient's antibiotic was changed to Keflex twice a day orally, she will be reevaluated tomorrow #3 type 2 diabetes-continue present treatment #4 essential hypertension #5 depression Code Visit Inpatient E&M: 60418 Subs Hosp L2
[2019-03-31] MEDS: Cephalexin 500 MG Capsule PO (21:34)
[2019-03-31 22:36] LABS: Bedside Glucose 175 mg/dL (70-110)
[2019-04-01 02:48] VITALS: BP 151/76; PULSE 91; RESP 16; TEMP 37.7; O2SAT 96
[2019-04-01 06:32] VITALS: BP 148/74; PULSE 84
[2019-04-01] MEDS: hydrALAZINE 50 MG Tablet PO (06:32)
[2019-04-01] MEDS: Insulin Lispro 100 UNIT/ML INSULN.PEN SC ×2 (06:35→11:18)
[2019-04-01 06:41] LABS: Bedside Glucose 176 mg/dL (70-110)
[2019-04-01 08:55] VITALS: O2SAT 95
[2019-04-01 09:20] VITALS: BP 145/76; PULSE 101; RESP 16; TEMP 36.9; O2SAT 95
[2019-04-01] MEDS: Folic Acid 1 MG Tablet PO (09:27)
[2019-04-01] MEDS: DULoxetine Hcl 60 MG Capsule PO (09:27)
[2019-04-01] MEDS: DULoxetine Hcl 30 MG Capsule PO (09:27)
[2019-04-01] MEDS: Cyanocobalamin 500 MCG Tablet 1000 MCG PO (09:27)
[2019-04-01] MEDS: Cephalexin 500 MG Capsule PO (09:27)
[2019-04-01] MEDS: Enoxaparin 40 MG/0.4 ML Syringe SC (09:28)
[2019-04-01] MEDS: Atenolol 50 MG Tablet PO (09:28)
--- NOTE | 2019-04-01 11:00 | NURSING ---
pt daughter Patricia called for update. she requested that we call her again to update if pt will be DC home today or if it is determined that pt will need another night stay. confirmed phone number in chart is correct.
[2019-04-01 11:25] LABS: Bedside Glucose 273 mg/dL (70-110)
[2019-04-01 11:29] LABS: Absolute Lymphocyte Count 1.19 X10^3/uL (0.83-4.51); Absolute Neutrophil Count 13.6 X10^3/uL (2.0-7.7); Basophil# 0.06 X10^3/uL; Basophil% 0.4 % (0-1); Eosinophil# 0.11 X10^3/uL; Eosinophils% 0.7 % (0-5); Hematocrit 38.1 % (37-47); Hemoglobin 12.5 g/dL (12.0-15.0); Lymphocyte # 1.19 X10^3/ul (4.0); Lymphocyte % 7.3 % (19-41); Mean Corp Hgb Conc 32.8 g/dL (32-36); Mean Corpuscular Hgb 28.2 pg (27.0-32.0); Mean Platelet Vol. 9.2 fl (6.2-12.0); Monocyte# 1.22 X10^3/uL; Monocyte% 7.5 % (0-10); NRBC Flagged by Analyzer 0 % (0-5); Neutrophil # 13.58 X10^3/uL (2.7-7.7); Neutrophil % 83.6 % (47-70); Platelet Count 441 K/mm3 (150-450); RBC Distribution Width SD 40.7 fl (35.1-43.9); Red Blood Count 4.43 M/mm3 (4.2-5.4); White Blood Count 16.2 K/mm3 (4.4-11.0)
--- NOTE | 2019-04-01 11:44 | PCM.DC ---
- Discharge Diagnoses Current Active Problems: Current Active and Chronic Problems Severe sepsis (Acute) UTI (urinary tract infection) (Acute) You will use the following diet at home:: Calorie/Carbohydrate Controlled (specify 1200, 1400, etc) - NO ADDED SUGAR Your food should be the consistency of: Regular Your liquids should be the consistency of: Regular/Thin Discharge Activity: Return to Normal Activity Weight Bearing Status: Full weight bearing Allergies/Adverse Reactions: Allergies codeine Allergy (Verified 03/29/19 21:31) Vomiting Medications to take at Discharge Atenolol [Tenormin (beta miki)] 1 tab PO DAILY PRN PRN 05/28/18 Cyanocobalamin (Vitamin B-12) [B-12] 1,000 mcg PO DAILY 05/28/18 Duloxetine HCl 30 mg PO DAILY 05/28/18 Nabumetone 1 tab PO DAILY 05/28/18 Duloxetine HCl 60 mg PO DAILY 06/19/18 Folic Acid 1 mg PO DAILY 06/19/18 metFORMIN (XR) [Glucophage Xr] 500 mg PO DAILY 06/19/18 Lidocaine/Transparent Dressing [Lidocaine 4% Kit] 1 ea TP DAILY #7 kit 02/27/19 Cephalexin [Keflex] 500 mg PO Q12 #14 cap 04/01/19 The following prescriptions were given: Cephalexin [Keflex] 500 mg PO Q12 #14 cap Transmission Status: Pending to [facility]/pharmacy #[id number] Primary Care Physician: Edvin Buckley MD [Primary Care Provider] - Please follow up with your Primary Care Physician in: LATER THIS WEEK Test Results: Test results from this visit will be discussed in further detail at your follow-up appointment, if applicable.
[2019-04-01 12:20] VITALS: BP 146/60; PULSE 77; RESP 16; TEMP 36.8; O2SAT 97
--- NOTE | 2019-04-01 15:00 | DS.PCM_ITS ---
Discharge Date and Diagnosis Date of Admission: 03/30/19 Date of Discharge: 04/01/19 - Primary Discharge Diagnosis #1 severe sepsis secondary to acute cystitis-organism unknown, probably gram- negative bacteria #2 acute cystitis-organism unknown, probably gram-negative bacteria #3 type 2 diabetes #4 essential hypertension #5 depression #6 possible cognitive impairment per history obtained from family (daughter) - Secondary Discharge Diagnosis Chronic Problems Rheumatoid arthritis (Chronic) Diabetes mellitus type 2 in nonobese (Chronic) Depression (Chronic) Hyperlipidemia (Chronic) Benign essential hypertension (Chronic) Hospital Course and Treatment Operations: None Procedures: None Summary of Care Provided: The patient is a 78 year old F who was seen in the emergency room at [facility] [place] with a chief complaint of right flank pain, work-up in the emergency room revealed the patient's white blood cell count to be elevated, her urinalysis indicated a urinary tract infection, and her lactic acid was elevated. Patient was admitted to [place] [id number] for severe sepsis secondary to acute cystitis, IV antibiotics were continued, IV fluids were administered, and labs were monitored. Patient improved during her hospitalization, nursing stated that conversations by phone with the patient's daughter who lives in [place], indicated that the patient may have cognitive impairment (? Dementia). On 04/01/2019, patient was seen and examined: On examination she appeared in good health and spirits. Vital signs as documented. Skin warm and dry and without overt rashes. Neck without JVD. Lungs clear. Heart exam notable for regular rhythm, normal sounds and absence of murmurs, rubs or gallops. Abdomen unremarkable and without evidence of organomegaly, masses, or abdominal aortic enlargement. Extremities nonedematous. Neuro: Cranial nerves II through XII are grossly intact, no focal motor deficits were noted, sensation to light touch and pinprick is intact. Psych: Patient is alert and oriented x3, she does not appear anxious or depressed On 04/01/2019, patient was seen and examined and felt to be in stable condition for discharge home. Patient's urinary culture showed mixed organisms and was not helpful in determining the etiology of her urinary tract infection. - Physical Exam Vitals/I&O's: Vital Signs Temp Pulse Resp BP Pulse Ox 98.2 F 77 16 146/60 H 97 04/01/19 12:20 04/01/19 12:20 04/01/19 12:20 04/01/19 12:20 04/01/19 12:20 Oxygen Delivery Method Room Air Weight: 76.2 kg Body Mass Index (BMI) 28.8 Finger Stick Blood Glucose 409 Intake and Output for Last 24 Hours 03/30/19 03/31/19 04/01/19 23:59 23:59 23:59 Intake Total 2580 / 2880 1915.25 / 2065.25 550 / 550 Output Total 300 / 300 250 / 450 200 / 200 Balance 2280 / 2580 1665.25 / 1615.25 350 / 350 Microbiology Past 72 Hours 03/29/19 22:50 Blood Culture (Wb) - Anticubital Left Blood Culture - Preliminary No growth in 48 hours. 03/29/19 22:45 Blood Culture (Wb) - Anticubital Right Blood Culture - Preliminary No growth in 48 hours. 03/29/19 21:58 Urine, Clean Catch Urine Culture - Final Mixed Gram Pos & Gram Neg Org Laboratory Results 03/31/19 16:59: POC Glucose 184 H 03/31/19 21:30: POC Glucose 175 H 04/01/19 06:31: POC Glucose 176 H 04/01/19 11:10: WBC 16.2 H, RBC 4.43, Hgb 12.5, Hct 38.1, MCV 86.0, MCH 28.2, MCHC 32.8, RDW Std Deviation 40.7, RDW Coeff of Anneliese 13.0, Plt Count 441, MPV 9.2, Immature Gran % (Auto) 0.500, Neut % (Auto) 83.6 H, Lymph % (Auto) 7.3 L, [place] % (Auto) 7.5, Eos % (Auto) 0.7, Baso % (Auto) 0.4, Absolute Neuts (auto) 13.6 H, Absolute Lymphs (auto) 1.19, Nucleated RBC % 0 04/01/19 11:17: POC Glucose 273 H Discharge Activity: Return to Normal Activity Weight Bearing Status: Full weight bearing Home Medications: Medications to take at Discharge Atenolol [Tenormin (beta miki)] 1 tab PO DAILY PRN PRN 05/28/18 Cyanocobalamin (Vitamin B-12) [B-12] 1,000 mcg PO DAILY 05/28/18 Duloxetine HCl 30 mg PO DAILY 05/28/18 Nabumetone 1 tab PO DAILY 05/28/18 Duloxetine HCl 60 mg PO DAILY 06/19/18 Folic Acid 1 mg PO DAILY 06/19/18 metFORMIN (XR) [Glucophage Xr] 500 mg PO DAILY 06/19/18 Lidocaine/Transparent Dressing [Lidocaine 4% Kit] 1 ea TP DAILY #7 kit 02/27/19 Cephalexin [Keflex] 500 mg PO Q12 #14 cap 04/01/19 Following Prescrptions Were Given to Patient: Cephalexin [Keflex] 500 mg PO Q12 #14 cap Transmission Status: Received by [facility]/pharmacy #[id number] Primary Care Physician: Edvin Buckley MD [Primary Care Provider] - Please follow up with your Primary Care Physician in: LATER THIS WEEK Disposition: Home Minutes spent on discharge:: 32 Patient Condition:: Stable Medical Necessity - Tobacco Use Smoking Status: Never smoker Meaningful Use Info Meaningful Use Diagnoses (Choose all that apply): None applicable Code Visit Inpatient E&M: 88461 Disch Hosp
--- NOTE | 2019-04-02 14:30 | CASEMGMT ---
ELSY STRONG DC PHONE CALL DC DATE: 04/01/19 DC Disposition: Home Diagnosis on Discharge: Sepsis, acute cystitis LACE/STRATA: 04/08 Intro role of CM to patient via phone. Pt states she has no questions re: prescriptions, f/u or instructions. Pt has made f/u appointments. No care improvement suggestions were given. Jocelyn MEJIAN RN AC
== END 2019-04-01 13:00 | disposition home or self-care (01) | DRG 872 ==
LOC: ED 03-30 01:46 → MS3 03-30 02:03
PROVIDERS: Internal Medicine; Admitting Provider Hospitalist; Emergency Provider Emergency Medicine; Family Provider Family Medicine; PCP Family Medicine; Referring Provider Hospitalist; Visit Provider Internal Medicine
DX: A41.9 Sepsis, unspecified organism (principal); N30.00 Acute cystitis without hematuria; R65.20 Severe sepsis without septic shock; E11.9 Type 2 diabetes mellitus without complications; E27.9 Disorder of adrenal gland, unspecified; I10 Essential (primary) hypertension; B96.89 Other specified bacterial agents as the cause of diseases classified elsewhere; F32.9 Major depressive disorder, single episode, unspecified; M06.9 Rheumatoid arthritis, unspecified; E78.5 Hyperlipidemia, unspecified; Z79.84 Long term (current) use of oral hypoglycemic drugs; R41.89 Other symptoms and signs involving cognitive functions and awareness
CPT/HCPCS: 36415; 71110; 74176; 80048; 80076; 81001; 82962; 83605; 83690; 85025; 87040; 87086; 87088; 99285; J7030; J7050; A4216

== ENCOUNTER 2019-06-20 00:35 | Emergency (ER) | payer MEDICARE, OTHER, SELFPAY ==
[2019-03-30 02:22] VITALS: BMI 28.8
[2019-06-20 00:37] VITALS: BP 198/110; PULSE 94; RESP 16; TEMP 36.6; O2SAT 97; BMI 28.7
--- NOTE | 2019-06-20 00:55 | EKG12_ITS ---
Test Reason : N/V Blood Pressure : / mmHG Vent. Rate : 086 BPM Atrial Rate : 086 BPM P-R Int : 212 ms QRS Dur : 102 ms QT Int : 432 ms P-R-T Axes : 054 -13 075 degrees QTc Int : 516 ms Sinus rhythm with 1st degree A-V block Prolonged QT Abnormal ECG Confirmed by LIZETTE MORTON, TRISTAN ([id number]), order editor MARIBEL ELO ([id number]) on 06/22/2019 9:59:34 AM Referred By: POLI Confirmed By:JEFFY BAUER MD
--- NOTE | 2019-06-20 00:55 | RAD_ITS ---
STUDY: X-RAY CHEST REASON FOR EXAM: Female, 79 years old. Vomiting TECHNIQUE: PA and lateral views of the chest. COMPARISON: 08/31/2018 FINDINGS: The lungs are clear and expanded. There is no demonstrated pleural abnormality. Normal size heart. Normal mediastinum and mercedes. Normal visualized pulmonary arteries. There is atherosclerotic calcification of the aortic arch . Mild S-shaped scoliosis lumbar spine with multilevel degenerative change. Normal visualized ribs, clavicles, and shoulders. There is no demonstrated abnormality of the visualized soft tissue structures of the upper abdomen. RAD/Chest PA and Lateral IMPRESSION: No acute cardiopulmonary disease Electronically Signed: Clint Chi MD at 2:23 EST Tel , Service support ,
--- NOTE | 2019-06-20 00:56 | ED.VIS.GEN ---
History of Present Illness Chief Complaint: Nausea/Vomiting Narrative: Patient is a 79-year-old female who presents with nausea and vomiting. This began acutely about 2 to 3 hours ago. She reports at least 5 episodes of nonbloody nonbilious emesis. No diarrhea. No abdominal pain. No fever. She otherwise denies recent illness. No fever congestion rhinorrhea sore throat. No headache. No shortness of breath. No lightheadedness or dizziness. She was recently diagnosed as a diabetic but has not yet started the medications that were prescribed including metformin. She reports normal urination. No decreased urination. No dysuria. She does note a mild chronic cough which is unchanged from baseline. Past Medical History - Allergies and Home Meds Allergies/Adverse Reactions: Allergies codeine Allergy (Verified 06/20/19 00:37) Vomiting Primary Care Physician: Edvin Buckley MD [Primary Care Provider] - Past Medical History: - - Diabetes, hypertension, dementia Surgical History: cholecystectomy, hysterectomy, total knee arthroplasty Smoking Status: Never smoker - Family History Paternal Family History: Reports: Diabetes Maternal Family History: Reports: Dementia Review of Systems All systems negative except as indicated General: Denies: Fever Eyes: Denies: Visual changes - bilaterally ENT: Denies: Bilateral ear pain Cardiovascular: Denies: Chest pain Respiratory: Reports: Cough. Denies: Dyspnea Gastrointestinal: Reports: Nausea, Vomiting. Denies: Abdominal pain, Diarrhea Genitourinary: Denies: Dysuria, Frequency Musculoskeletal: Denies: Myalgias, Arthralgias Skin: Denies: Rash Neurological: Denies: Headache Endocrine: Denies: Polyuria Hematologic: Denies: Easy bruising Allergy: Denies: Uticaria Physical Exam Vital Signs/Narrative: Vital Signs Temp Pulse Resp BP Pulse Ox 06/20/19 00:37 97.9 F 94 16 198/110 H 97 Inital Vital Signs reviewed: Yes General: Well nourished, Well developed Head: Normocephalic, Atraumatic Eyes: Perrl, EOMI ENT: Moist mucous membranes Neck: Supple Cardiovascular: Regular rate, Regular rhythm Respiratory: No distress, CTA bilaterally Abdomen: Soft, Nontender, Nondistended Extremities: Nontender Skin: Normal color Neurological: Alert Psychological: Normal affect Diagnostic/Tx/Re-eval Impressions Chest X-Ray 06/20/19 00:55 IMPRESSION: No acute cardiopulmonary disease Electronically Signed: Clint Chi MD at 2:23 EST Tel , Service support , Brain CT 06/20/19 02:20 IMPRESSION: 1. No evidence of an acute intracranial abnormality. 2. Mild bilateral periventricular and subcortical white matter and basal ganglial chronic small vessel disease with age appropriate cerebral atrophy. Electronically Signed: Clint Chi MD at 2:48 EST Tel , Service support , 06/20/19 00:55 Chest PA and Lateral [RAD] Stat 06/20/19 02:20 CT Head [Brain/Head without Contrast] [CT] Stat Laboratory Results 06/20/19 06/20/19 06/20/19 01:10 01:10 03:10 WBC 12.7 H RBC 5.18 Hgb 14.4 Hct 43.6 MCV 84.2 MCH 27.8 MCHC 33.0 RDW Std Deviation 41.1 RDW Coeff of Anneliese 13.3 Plt Count 404 MPV 9.0 Immature Gran % (Auto) 0.600 Neut % (Auto) 81.6 H Lymph % (Auto) 11.3 L [place] % (Auto) 4.1 Eos % (Auto) 1.8 Baso % (Auto) 0.6 Absolute Neuts (auto) 10.4 H Absolute Lymphs (auto) 1.44 Nucleated RBC % 0 Sodium 137 Potassium 3.4 L Chloride 100 Carbon Dioxide 32.0 Anion Gap 5 BUN 13 Creatinine 0.73 Estim Creat Clear Calc 42.39 Est GFR (MDRD) Af Amer 100 Est GFR (MDRD) Non-Af 83 BUN/Creatinine Ratio 17.9 Glucose 209 H Calcium 9.5 Total Bilirubin 0.20 AST 18 ALT 38 Alkaline Phosphatase 95 Troponin I < 0.015 Total Protein 7.4 Albumin 3.5 Globulin 3.9 Albumin/Globulin Ratio 0.9 Lipase 169 Urine Color Yellow Urine Clarity Clear Urine pH 7.0 Ur Specific [place] 1.015 Urine Protein 30 H Urine Glucose (UA) 250 H Urine Ketones 5 H Urine Occult Blood 10 H Urine Nitrite Negative Urine Bilirubin Negative Urine Urobilinogen Normal Ur Leukocyte Esterase 100 H Urine RBC 0 SEEN Urine WBC 0-5 SEEN Ur Squamous Epith Cells 0 SEEN Urine Bacteria 0 SEEN Urine Mucus 0 SEEN - Medical Decision Making Laboratory evaluation as above notable only for mild leukocytosis with a white count of 12.7. Chemistries including hepatic function and lipase are normal. Urinalysis is not consistent with cystitis. On reevaluation patient's nausea is resolved. She was able to tolerate a p.o. challenge. She has no abdominal pain and has a benign abdominal exam. I do not believe imaging is warranted at this time. In regards to the patient's hypertension, EKG shows sinus rhythm with a first-degree AV block, no acute ischemic changes. CT of the head shows no acute process. Chest x-ray shows no acute disease and troponin is negative. Patient has no evidence of renal failure, pulmonary edema, cerebral edema, cardiac ischemia. She is not symptomatic. She was given labetalol and then hydralazine and on recheck her systolic blood pressure is 166. Given that on reevaluation patient is resting comfortably with no complaints I do feel she is safe for outpatient follow-up. I do not see an indication for hospitalization at this time however patient was advised to return for any new or worsening symptoms and otherwise to follow-up as an outpatient. ED Disposition - Plan for ED Patient: Disposition: Home or Assisted Living Diagnosis: Hypertension, Vomiting Instructions: VOMITING (8y-Adult) Referrals: Edvin Buckley MD [Primary Care Provider] -
[2019-06-20] MEDS: Ondansetron 4 MG/2 ML Vial IV (01:05)
[2019-06-20 01:17] LABS: Absolute Lymphocyte Count 1.44 X10^3/uL (0.83-4.51); Absolute Neutrophil Count 10.4 X10^3/uL (2.0-7.7); Basophil# 0.07 X10^3/uL; Basophil% 0.6 % (0-1); Eosinophil# 0.23 X10^3/uL; Eosinophils% 1.8 % (0-5); Hematocrit 43.6 % (37-47); Hemoglobin 14.4 g/dL (12.0-15.0); Lymphocyte # 1.44 X10^3/ul (4.0); Lymphocyte % 11.3 % (19-41); Mean Corpuscular Hgb 27.8 pg (27.0-32.0); Mean Corpuscular Volume 84.2 fL (81-99); Monocyte# 0.52 X10^3/uL; Monocyte% 4.1 % (0-10); NRBC Flagged by Analyzer 0 % (0-5); Neutrophil # 10.39 X10^3/uL (2.7-7.7); Neutrophil % 81.6 % (47-70); Platelet Count 404 K/mm3 (150-450); RBC Distribution Width CV 13.3 % (11.6-14.6); RBC Distribution Width SD 41.1 fl (35.1-43.9); Red Blood Count 5.18 M/mm3 (4.2-5.4); White Blood Count 12.7 K/mm3 (4.4-11.0)
[2019-06-20 01:35] LABS: ALB/GLOB Ratio 0.9 RATIO (0.9-2.4); AST(SGOT) 18 U/L (15-37); Alanine Aminotransfer ALT/SGPT 38 U/L (13-56); Albumin, Serum 3.5 g/dL (3.2-5.0); Alkaline Phosphatase 95 U/L (45-117); Anion Gap 5 (5-15); BUN 13 mg/dL (7-18); BUN/Creat Ratio 17.9 RATIO (10-20); Calcium,Total 9.5 mg/dL (8.5-10.1); Chloride 100 mmol/L (98-107); Creatinine, Serum 0.73 mg/dL (0.55-1.02); EST Glomerular Filtration Rate 83 mL/min (>60); Est Glom Filt Rate - Afr Amer 100 mL/min (>60); Estimated Creatinine Clearance 42.39 ml/min; Globulin 3.9 g/dL (2.2-4.2); Glucose 209 mg/dL (74-106); Lipase 169 U/L (73-393); Potassium 3.4 mmol/L (3.5-5.1); Protein, Total 7.4 g/dL (6.4-8.2); Sodium Level 137 mmol/L (136-145)
[2019-06-20 02:05] VITALS: BP 204/92; PULSE 70; RESP 18; O2SAT 97
[2019-06-20] MEDS: hydrALAZINE 20 MG/ML Vial 10 MG IV (02:11)
--- NOTE | 2019-06-20 02:20 | CT_ITS ---
STUDY: CT BRAIN WITHOUT CONTRAST REASON FOR EXAM: Female, 79 years old. Vomiting and headache RADIATION DOSAGE (If Supplied By Facility): CTDIvol = ( 44.99 ) mGy, DLP = ( 745.49 ) mGycm TECHNIQUE: Transaxial CT imaging of the brain was performed without administration of intravenous contrast material. Individualized dose optimization techniques were used for this CT. COMPARISON: 08/31/2018 FINDINGS: Normal soft tissue structures. Normal calvarium. There is mild cerebral atrophy with widening of the extra-axial spaces and ventricular dilatation. There is mild bilateral periventricular and subcortical white matter hypoattenuation which is symmetric in distribution. Well-defined hypoattenuated lesion in the right anterior basal ganglia. Normal thalami. Normal brainstem. Normal cerebellum. There is no intracranial hemorrhage. There are no findings of an acute ischemic infarction. Normal visualized paranasal sinuses. CT/Brain/Head without Contrast IMPRESSION: 1. No evidence of an acute intracranial abnormality. 2. Mild bilateral periventricular and subcortical white matter and basal ganglial chronic small vessel disease with age appropriate cerebral atrophy. Electronically Signed: Clint Chi MD at 2:48 EST Tel , Service support ,
[2019-06-20 02:53] VITALS: BP 172/89; PULSE 83; RESP 16; O2SAT 96
[2019-06-20 03:18] LABS: Bacteria 0 SEEN /hpf (None Seen); Mucous, Urine 0 SEEN /hpf (<or=2+); Red Blood Cells-Urine 0 SEEN /hpf (0-5); Squamous Epithelial Cells - UA 0 SEEN /hpf (5-10)
[2019-06-20 03:23] LABS: Color, Urine Yellow (Yellow); Glucose, Dipstick 250 mg/dl (Normal); Ketone-Dipstick 5 mg/dl (Negative); Leukocyte Esterase-Dipstick 100 /ul (Negative); Nitrite-Dipstick Negative (Negative); Occult Blood-Urine 10 /ul (Negative); Protein-Dipstick 30 mg/dl (Negative); Specific Gravity, Urine 1.015 (1.002-1.030); Urine Bilirubin Dipstick Negative (Negative); Urine Clarity Clear (Clear); Urine Urobilinogen Normal (Normal)
[2019-06-20 03:32] LABS: White Blood Cells 0-5 SEEN /hpf (0-5)
[2019-06-20 04:04] VITALS: BP 166/86; PULSE 83; RESP 16; O2SAT 97
== END 2019-06-20 04:41 | disposition home or self-care (01) ==
PROVIDERS: Emergency Provider Emergency Medicine; Family Provider Family Medicine; PCP Family Medicine
DX: R11.2 Nausea with vomiting, unspecified (principal); I10 Essential (primary) hypertension; R05 Cough; I44.0 Atrioventricular block, first degree; E11.9 Type 2 diabetes mellitus without complications; F03.90 Unspecified dementia, unspecified severity, without behavioral disturbance, psychotic disturbance, mood disturbance, and anxiety
CPT/HCPCS: 70450; 71046; 80053; 81001; 83690; 84484; 85025; 93005; 96374; 96375; 99285; J7030; A4216; J2405